=== PATIENT | male | born 1945 | race Caucasian/White ===

== ENCOUNTER 2017-03-25 10:49 | Inpatient (IN) | payer OTHER ==
[2017-03-25] MEDS ORDERED: ASPIRIN 325 MG TABLET PO ONE (11:40)
--- NOTE | 2017-03-25 11:44 | PDOC ---
History of Present Illness <Catalino Triplett - Last Filed: 03/25/17 13:46> - General History Source: Patient, Old Records Exam Limitations: No Limitations - History of Present Illness Initial Comments: 03/25/17 12:20 The patient is a 71 year old male, with a significant past medical history of diabetes and HTN, who presents to the emergency department with right hand weakness and right lower extremity weakness for the past 2 days. He states that the symptoms began evening and then symptoms have not alleviated or worsened. He notes that he is unable to lift his right arm above his head. He also reports numbness on the right upper extremity. He denies any kind of fall or head injury. He states that he takes a daily aspirin but not plavix. He notes that he did not take his aspirin today. He reports that he has chronic lower extremity edema. The patient denies chest pain, shortness of breath, headache and dizziness. Denies fever, chills, nausea, vomit, diarrhea and constipation. Denies dysuria, frequency, urgency and hematuria. Allergies: None Past surgical history: None reported Social history: No alcohol, tobacco or drug use reported PMD - Dr. Virgil Mercedes <Faraz Woodward Padmaja - Last Filed: 03/25/17 15:17> - General Chief Complaint: Pain, Acute Stated Complaint: LT SHOULDER PAIN Time Seen by Provider: 03/25/17 11:16 NIH Stroke Scale - Last Known Well Date/Time & Onset Date Last Known Well: 03/23/17 (evening, exact time unknown) - Initial Evaluation Level of consciousness: Alert Ask patient the month and their age: Answers both correctly Ask patient to open & close eyes; make fist and let go: Obeys both correctly Best gaze (horizontal eye movement): Normal Visual field testing: No visual field loss Facial paresis (Show teeth/raise eyebrows/close eyes tight): Minor paralysis ( flattened nasolabial fold, asymmetry on smiling) Motor Function: Left Arm: Normal Motor Function: Right Arm: Some effort against gravity Motor Function: Left Leg: Normal (extends leg 30 degrees for 5 seconds without drift) Motor Function: Right Leg: Some effort against gravity Limb Ataxia: No ataxia Sensory(Use pinprick test arms,legs,trunk,face/side to side): Normal Best language (Describe picture, name items, read sentences): No Aphasia Dysarthria (read several words): Normal articulation Extinction and Inattention: No abnormality - Total Score NIH Stroke Scale Score: 5 <JaradclaudiaCatalino - Last Filed: 03/25/17 13:46> tPA Exclusion checklist 3-4.5h - Time Elapsed Date last known well: 03/23/17 - Thrombolytic Therapy Candidate Is patient eligible for thrombolytic therapy: No - Ineligibility reason(s) Reasons No tPA given: Outside of window - delayed arrival <Catalino Triplett - Last Filed: 03/25/17 13:46> Past History - Past Medical History Diabetes: Yes HTN: Yes - Immunization History Immunization Up to Date: Yes - Psycho/Social/Smoking Cessation Hx Anxiety: No Suicidal Ideation: No Smoking History: Never smoked Have you smoked in the past 12 months: No Hx Alcohol Use: No Drug/Substance Use Hx: No Substance Use Type: None Hx Substance Use Treatment: No <Catalino Triplett - Last Filed: 03/25/17 13:46> <Faraz Woodward - Last Filed: 03/25/17 15:17> - Past Medical History Allergies/Adverse Reactions: Allergies Allergy/AdvReac Type Severity Reaction Status Date / Time No Known Allergies Allergy Verified 03/25/17 10:50 Home Medications: Ambulatory Orders Lisinopril/Hydrochlorothiazide [Lisinopril-Hctz 10-12.5 mg Tab] 1 each PO DAILY 11/04/16 Amlodipine Besylate [Norvasc -] 10 mg PO DAILY tablet 11/05/16 Aspirin Coated [Ecotrin -] 81 mg PO DAILY tablet.ec 11/05/16 Atorvastatin Ca [Lipitor] 40 mg PO HS tablet 11/05/16 Canagliflozin [Invokana] 100 mg PO DAILY 11/05/16 Hydrochlorothiazide [Hctz -] 12.5 mg PO DAILY cap 11/05/16 Insulin Degludec [Tresiba Flextouch U-100] 0.001 ml SQ DAILY 11/05/16 Linagliptin/Metformin HCl [Jentadueto 2.5 mg-500 mg Tab] 1 each PO BID 11/05/16 Review of Systems - Review of Systems Constitutional: No: Chills, Fever HEENTM: No: Recent change in vision Respiratory: No: Cough, Shortness of Breath Cardiac (ROS): No: Chest Pain ABD/GI: No: Nausea, Vomiting Neurological: Yes: Weakness. No: Headache All Other Systems: Reviewed and Negative <Catalino Triplett - Last Filed: 03/25/17 13:46> *Physical Exam - Vital Signs Last Vital Signs Temp Pulse Resp BP Pulse Ox 98.2 F 74 18 126/58 98 03/25/17 10:50 03/25/17 10:50 03/25/17 10:50 03/25/17 10:50 03/25/17 10:50 <Catalino Triplett - Last Filed: 03/25/17 13:46> - Vital Signs Last Vital Signs Temp Pulse Resp BP Pulse Ox 98.2 F 74 18 126/58 98 03/25/17 10:50 03/25/17 10:50 03/25/17 10:50 03/25/17 10:50 03/25/17 10:50 - Physical Exam Comments: 03/25/17 12:20 GENERAL: The patient is awake, alert, and fully oriented, in no acute distress. HEAD: Normal with no signs of trauma. EYES: Pupils equal, round and reactive to light, extraocular movements intact, sclera anicteric, conjunctiva clear with no pallor. ENT: Ears normal, nares patent, oropharynx clear without exudates. Moist mucous membranes. NECK: Normal range of motion, supple without lymphadenopathy, JVD, or masses. LUNGS: Breath sounds equal, clear to auscultation bilaterally. No wheeze/ crackles. HEART: Regular rate and rhythm, normal S1 and S2 without murmur or rub. ABDOMEN: Soft/nontender/nondistended. BS wnl. No guarding or rebound. No palpable masses. No hepatosplenomegaly. EXTREMITIES: +1+ edema bilaterally interior leg. Normal range of motion. No clubbing or cyanosis. No cords, erythema, or tenderness. NEUROLOGICAL: +Slight flattening of the left nasal fold. Defer to NIH. PSYCH: Normal mood, normal affect. SKIN: Warm, Dry, normal turgor, no rashes or lesions noted. <Faraz Woodward - Last Filed: 03/25/17 15:17> Heart Score/ECG Review #1 ECG reviewed & interpreted by me at: 11:42 General ECG Interpretation: Sinus Rhythm, Normal Rate (66), Normal Intervals ( qtc 406, LVH), No acute ischemic changes <Catalino Triplett - Last Filed: 03/25/17 13:46> ED Treatment Course - LABORATORY CBC & Chemistry Diagram: 03/25/17 11:41 03/25/17 11:41 - RADIOLOGY Radiology Studies Ordered: Category Date Time Status HEAD CT (STROKE) [CT] Stat CT Scan 03/25/17 11:39 Ordered <Catalino Triplett - Last Filed: 03/25/17 13:46> - LABORATORY CBC & Chemistry Diagram: 03/25/17 11:41 03/25/17 11:41 - ADDITIONAL ORDERS Additional order review: 03/25/17 11:41 RBC 5.37 MCV 81.1 MCHC 33.5 RDW 14.2 MPV 8.3 Neutrophils % 65.7 Lymphocytes % 16.4 D Monocytes % 7.9 Eosinophils % 8.0 H Basophils % 2.0 - RADIOLOGY Radiograph Interpretation: 03/25/17 13:[address] Reviewed by: Dr. To Huddleston Impression: No CT evidence of acute intracranial pathology. - Medications Given in the ED: ED Medications Discontinued Medications Generic Name Dose Route Start Last Admin Trade Name Freq PRN Reason Stop Dose Admin Aspirin 325 mg 03/25/17 11:40 03/25/17 11:52 Asa - PO 03/25/17 11:41 325 mg ONCE ONE Administration <Faraz Woodward - Last Filed: 03/25/17 15:17> Medical Decision Making - Medical Decision Making 03/25/17 11:41 A portion of this note was documented by scribe services under my direction. I have reviewed the details of the note, within reason, and agree with the documentation with the following case summary and management plan written by me. 71-year-old male with history of hypertension, high cholesterol, diabetes presents with right arm and leg weakness since evening. Denies any headache or any pain or injury, no chest pain or difficulty breathing, but presents for persistence of symptoms. He takes a daily aspirin, did not take it today. Exam as noted with right arm and leg weakness, NIH score 5 Otherwise alert and well appearing seated in stretcher 71-year-old male who was likely sustained a CVA 2 days ago, now with delayed presentation for persistence of right-sided weakness. Most concerning for ischemic CVA, rule out any bleeding. Stroke protocol initiated, out of window for code azul Neurology consulted, Dr. Garcia Will give aspirin if CT negative Admit to stroke unit 03/25/17 12:13 D/W Dr. Garcia of neurology, will see patient and agrees with Stroke unit admission. On my prelim review of CT, no acute hemorrhage. 03/25/17 12:34 Radiology read confirms no acute abnormality on CT. Labs are within normal limits, slight hyperglycemia of 300 so given insulin subcutaneously. Troponin negative, cholesterol elevated. PMD is Dr. Virgil Mercedes, Dr. Nice covering and called. 03/25/17 13:46 Accepted for inpatient stroke by Dr. Nice. <Catalino Triplett - Last Filed: 03/25/17 13:46> - Medical Decision Making 03/25/17 15:15 Dr. Virgil Mercedes was called regarding the patient at 12:40pm. Dr. Nice covering. Dr. Nice was called regarding the patient at 1:32pm Dr. Nice was consulted regarding the patient at 2:00pm [phone] <Faraz Woodward - Last Filed: 03/25/17 15:17> *DC/Admit/Observation/Transfer - Discharge Dispostion Admit: Yes <Catalino Triplett - Last Filed: 03/25/17 13:46> - Attestations Scribe Attestion: 03/25/17 12:21 Documentation prepared by Faraz Woodward, acting as medical aide for Catalino Triplett MD <Faraz Woodward - Last Filed: 03/25/17 15:17> Diagnosis at time of Disposition: CVA (cerebral vascular accident) Qualifiers: CVA mechanism: unspecified Qualified Code(s): I63.9 - Cerebral infarction, unspecified - Referrals
[2017-03-25] MEDS ORDERED: ASPIRIN 325 MG TABLET ONE (11:50)
[2017-03-25 11:53] LABS: MCH 27.2 pg (25.7-33.7); MCHC 33.5 g/dl (32.0-35.9); MEAN CELL VOLUME 81.1 fl (80-96); MEAN PLT VOLUME 8.3 fl (7.5-11.1); NEUTROPHILS 65.7 % (42.8-82.8); PLATELET COUNT 228 K/MM3 (134-434); RDW 14.2 % (11.9-15.9); WHITE BLOOD COUNT 5.6 K/mm3 (4.0-10.0)
[2017-03-25 12:07] LABS: INR 1.06 (0.82-1.09); PROTHROMBIN TIME (PATIENT) 11.7 SEC (9.98-11.88)
[2017-03-25 12:21] LABS: ALBUMIN 3.9 g/dl (3.4-5.0); ANION GAP 9 (8-16); BILIRUBIN,TOTAL 0.5 mg/dL (0.2-1.0); CALCIUM 9.1 mg/dL (8.5-10.1); CHOLESTEROL 240 mg/dL (50-200); CO2 24 mmol/L (21-32); COCKROFT - GAULT 78.72; LDL CHOLESTEROL (ONLY SJRH) 166 mg/dL (5-100); SGPT/ALT 24 U/L (12-78); TOT PROT 7.3 g/dl (6.4-8.2)
[2017-03-25 12:24] LABS: ALK PHOS 81 U/L (45-117); SGOT/AST 17 U/L (15-37); TROPONIN I < 0.02 ng/ml (0.00-0.05)
[2017-03-25 12:28] LABS: GLUCOSE,RANDOM 307 mg/dL (74-106)
[2017-03-25] MEDS ORDERED: INSULIN REGULAR HUMAN 100 UNITS/ML *VIAL SQ ONE (12:34)
[2017-03-25] MEDS ORDERED: INSULIN REGULAR HUMAN 100 UNITS/ML *VIAL ONE (12:41)
[2017-03-25 15:22] LABS: URINE APPEARANCE CLEAR; URINE BILIRUBIN NEGATIVE (NEGATIVE); URINE BLOOD NEGATIVE (NEGATIVE); URINE COLOR STRAW; URINE GLUCOSE (UA) 3+ (NEGATIVE); URINE KETONE NEGATIVE (NEGATIVE); URINE LEUK ESTERASE NEGATIVE (NEGATIVE); URINE NITRITE NEGATIVE (NEGATIVE); URINE PROTEIN NEGATIVE (NEGATIVE); URINE UROBILINOGEN NEGATIVE E.U./dl (0.2-1.0)
[2017-03-25 16:34] VITALS: BMI 27.8
--- NOTE | 2017-03-25 18:13 | CON.NEURO ---
Consult Consult Specialty:: Neurology Reason for Consultation:: Left arm weakness - History of Present Illness Chief Complaint: "My arm is weak since . History of Present Illness: The patient is a 71 year old gentleman with a significant past medical history of diabetes and HTN, who presents to the emergency department with right hand weakness and right lower extremity weakness for the past 2 days. He states that the symptoms began evening, the right leg weakness has improved but not the arm weakness and then symptoms have not alleviated or worsened. He notes that he is unable to lift his right arm above his head. He also reported numbness on the right upper extremity but denies it noew. He denies any kind of fall or head injury. He states that he takes a daily aspirin but not plavix. He reports 3 days prior to the inception of current event he did not take ANY of his medications.. He reports that he has chronic lower extremity edema. The patient denies chest pain, shortness of breath, headache and dizziness. Denies fever, chills, nausea, vomit, diarrhea and constipation. Denies dysuria, frequency, urgency and hematuria. - History Source History Provided By: Patient Limitations to Obtaining History: No Limitations - Past Medical History Cardio/Vascular: Yes: Aneurysm, HTN, Hyperlipdemia Pulmonary: Yes: COPD Renal/: Yes: BPH, Other (PROSTATE BX) Musculoskeletal: Yes: Chronic low back pain Endocrine: Yes: Diabetes Mellitus - Alcohol/Substance Use Hx Alcohol Use: No History of Substance Use: reports: None - Smoking History Smoking history: Never smoked Have you smoked in the past 12 months: No - Social History ADL: Independent History of Recent Travel: No Home Medications - Allergies Allergies/Adverse Reactions: Allergies Allergy/AdvReac Type Severity Reaction Status Date / Time No Known Allergies Allergy Verified 03/25/17 10:50 - Home Medications Home Medications: Ambulatory Orders Lisinopril/Hydrochlorothiazide [Lisinopril-Hctz 10-12.5 mg Tab] 1 each PO DAILY 11/04/16 Amlodipine Besylate [Norvasc -] 10 mg PO DAILY tablet 11/05/16 Aspirin Coated [Ecotrin -] 81 mg PO DAILY tablet.ec 11/05/16 Atorvastatin Ca [Lipitor] 40 mg PO HS tablet 11/05/16 Canagliflozin [Invokana] 100 mg PO DAILY 11/05/16 Hydrochlorothiazide [Hctz -] 12.5 mg PO DAILY cap 11/05/16 Insulin Degludec [Tresiba Flextouch U-100] 0.001 ml SQ DAILY 11/05/16 Linagliptin/Metformin HCl [Jentadueto 2.5 mg-500 mg Tab] 1 each PO BID 11/05/16 Physical Exam-Neuro Vital Signs: Vital Signs Temperature 97.8 F 03/25/17 16:09 Pulse Rate 58 L 03/25/17 16:30 Respiratory Rate 18 03/25/17 16:30 Blood Pressure 172/94 03/25/17 16:09 O2 Sat by Pulse Oximetry (%) 97 03/25/17 16:09 Labs: INR, PTT INR 1.06 (0.82-1.09) 03/25/17 11:41 - Neuro Exam Dominant Hand: Right Mini Mental Exam: HIF intact Cranial Nerves II-XII Intact: No (slight right central facial) Gag: Present DTR's: 0 Left Achilles, 0 Right Achilles, 1+ Right Bicep, 1+ Right Tricep, 1+ Right Brachioradialis, 2+ Left Bicep, 2+ Left Tricep, 2+ Left Brachioradialis Response to light touch: Abnormal (there) Motor Strength: 3/5: Right Arm (Biceps/triceps/deltoid-4+/5, 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 rotated, DF-4/5) Gait: Other (very slight right hemiparetic gait.) NIH Stroke Scale - Total Score NIH Stroke Scale Score: 0 Imaging - Results Cat Scan: Report Reviewed, Image Reviewed (Ct head without evidence of acute infarct.) Assessment/Plan Pt. with improving left hemiparesis/hemisensory deficit. Likely small lacunar subcortical infarction. Suggest: 1) Cont. ASA 325ng daily 2) MRI brain, Carotid Ultrasound, Echocardiogram(if not recently performed at PMDs office) 3) Pt/Rehab consult. Thank you, Please dont hesitate to call me [phone] Alanna Garcia.
[2017-03-26] MEDS: metFORMIN HCL 500 MG TABLET (FP) PO SCH ×2 (06:07→17:11)
[2017-03-26] MEDS: sitaGLIPtin PHOSPHATE 100 MG TABLET (FP) PO SCH (06:07)
[2017-03-26] MEDS: INSULIN SLIDING SCALE (NOVOLOG) 1 VIAL SQ SCH ×5 (06:09→21:12)
--- NOTE | 2017-03-26 07:56 | CON.CARD ---
Consult Consult Specialty:: Cardiology for Marie Reason for Consultation:: cva - History of Present Illness History of Present Illness: The patient is a 71 year old male, with a significant past medical history of diabetes and HTN, who presents to the emergency department with right hand weakness and right lower extremity weakness for the past 2 days. He states that the symptoms began evening and then symptoms have not alleviated or worsened. He notes that he is unable to lift his right arm above his head. He also reports numbness on the right upper extremity. He denies any kind of fall or head injury. He states that he takes a daily aspirin but not plavix. He notes that he did not take his aspirin today. He reports that he has chronic lower extremity edema. The patient denies chest pain, shortness of breath, headache and dizziness. Denies fever, chills, nausea, vomit, diarrhea and constipation. Denies dysuria, frequency, urgency and hematuria. Allergies: None Past surgical history: None reported Social history: No alcohol, tobacco or drug use reported PMD - Dr. Virgil Mercedes - History Source History Provided By: Patient, Medical Record - Past Medical History Cardio/Vascular: Yes: Aneurysm, HTN, Hyperlipdemia Pulmonary: Yes: COPD Renal/: Yes: BPH, Other (PROSTATE BX) Musculoskeletal: Yes: Chronic low back pain Endocrine: Yes: Diabetes Mellitus - Alcohol/Substance Use Hx Alcohol Use: No History of Substance Use: reports: None - Smoking History Smoking history: Never smoked Have you smoked in the past 12 months: No - Social History ADL: Independent History of Recent Travel: No Home Medications - Allergies Allergies/Adverse Reactions: Allergies Allergy/AdvReac Type Severity Reaction Status Date / Time No Known Allergies Allergy Verified 03/25/17 10:50 - Home Medications Home Medications: Ambulatory Orders Lisinopril/Hydrochlorothiazide [Lisinopril-Hctz 10-12.5 mg Tab] 1 each PO DAILY 11/04/16 Amlodipine Besylate [Norvasc -] 10 mg PO DAILY tablet 11/05/16 Aspirin Coated [Ecotrin -] 81 mg PO DAILY tablet.ec 11/05/16 Atorvastatin Ca [Lipitor] 40 mg PO HS tablet 11/05/16 Canagliflozin [Invokana] 100 mg PO DAILY 11/05/16 Hydrochlorothiazide [Hctz -] 12.5 mg PO DAILY cap 11/05/16 Insulin Degludec [Tresiba Flextouch U-100] 0.001 ml SQ DAILY 11/05/16 Linagliptin/Metformin HCl [Jentadueto 2.5 mg-500 mg Tab] 1 each PO BID 11/05/16 Review of Systems - Review of Systems Constitutional: reports: No Symptoms Eyes: reports: No Symptoms HENT: reports: No Symptoms Neck: reports: No Symptoms Cardiovascular: reports: No Symptoms Gastrointestinal: reports: No Symptoms Genitourinary: reports: No Symptoms Breasts: reports: No Symptoms Reported Musculoskeletal: reports: No Symptoms Integumentary: reports: No Symptoms Neurological: reports: Weakness Endocrine: reports: No Symptoms Hematology/Lymphatic: reports: No Symptoms Psychiatric: reports: No Symptoms Vital Signs: Vital Signs Temperature 98.0 F 03/26/17 05:00 Pulse Rate 54 L 03/26/17 05:00 Respiratory Rate 18 03/26/17 05:00 Blood Pressure 154/94 03/26/17 05:00 O2 Sat by Pulse Oximetry (%) 97 03/25/17 21:00 Constitutional: Yes: Well Nourished, No Distress, Calm Eyes: Yes: WNL, Conjunctiva Clear, EOM Intact HENT: Yes: WNL, Atraumatic, Normocephalic Neck: Yes: WNL, Supple, Trachea Midline Respiratory: Yes: WNL, Regular, CTA Bilaterally Gastrointestinal: Yes: WNL, Normal Bowel Sounds Renal/: Yes: WNL Cardiovascular: Yes: WNL, Regular Rate and Rhythm Musculoskeletal: Yes: WNL Extremities: Yes: WNL Integumentary: Yes: WNL Neurological: Yes: Weakness ...Motor Strength: WNL Psychiatric: Yes: WNL, Alert, Oriented - Other Data Labs, Other Data: INR, PTT INR 1.06 (0.82-1.09) 03/25/17 11:41 Imaging - Results EKG: Image Reviewed (sr lvh) Problem List - Problems (1) CVA (cerebral vascular accident) Code(s): I63.9 - CEREBRAL INFARCTION, UNSPECIFIED Qualifiers: CVA mechanism: unspecified Qualified Code(s): I63.9 - Cerebral infarction, unspecified (2) Back pain Code(s): M54.9 - DORSALGIA, UNSPECIFIED (3) Chest pain Code(s): R07.9 - CHEST PAIN, UNSPECIFIED Qualifiers: Chest pain type: unspecified Qualified Code(s): R07.9 - Chest pain, unspecified (4) Constipation Code(s): K59.00 - CONSTIPATION, UNSPECIFIED Qualifiers: Constipation type: unspecified constipation type Qualified Code(s): K59.00 - Constipation, unspecified (5) Diabetes type 2, controlled Code(s): E11.9 - TYPE 2 DIABETES MELLITUS WITHOUT COMPLICATIONS (6) Fever and chills Code(s): R50.9 - FEVER, UNSPECIFIED (7) HLD (hyperlipidemia) Code(s): E78.5 - HYPERLIPIDEMIA, UNSPECIFIED (8) Hypertension Code(s): I10 - ESSENTIAL (PRIMARY) HYPERTENSION (9) UTI (urinary tract infection) Code(s): N39.0 - URINARY TRACT INFECTION, SITE NOT SPECIFIED Qualifiers: Urinary tract infection type: acute cystitis Hematuria presence: without hematuria Qualified Code(s): N30.00 - Acute cystitis without hematuria Assessment/Plan small lacunar subcortical infarct mri pending htn copd hld dm plan echo carotids lipid profile asa as per neuro bp control coverage for Angeline
[2017-03-26] MEDS: HYDROCHLOROTHIAZIDE 12.5 MG CAPSULE (FP) PO SCH (09:20)
[2017-03-26] MEDS: ASPIRIN COATED 81 MG TABLET.EC PO SCH (09:20)
[2017-03-26] MEDS ORDERED: PATIENT'S OWN MEDICATION (NON-FORMULARY) (Canagliflozin [Invokana] 100 MG) PO SCH (10:00)
[2017-03-26] MEDS ORDERED: PATIENT'S OWN MEDICATION (NON-FORMULARY) (Linagliptin/Metformin Hcl [Jentadueto 2.5 Mg-500 PO SCH (10:00)
[2017-03-26] MEDS ORDERED: INSULIN DEGLUDEC SQ SCH (10:00)
[2017-03-26 12:31] LABS: ALBUMIN 3.7 g/dl (3.4-5.0); ANION GAP 8 (8-16); BILIRUBIN,TOTAL 0.4 mg/dL (0.2-1.0); CALCIUM 8.9 mg/dL (8.5-10.1); CO2 27 mmol/L (21-32); COCKROFT - GAULT 99.52; CREATININE 0.8 mg/dL (0.7-1.3); GLUCOSE,RANDOM 199 mg/dL (74-106); SGOT/AST 12 U/L (15-37); SGPT/ALT 22 U/L (12-78)
[2017-03-26 12:32] LABS: ALK PHOS 80 U/L (45-117)
[2017-03-26 12:41] LABS: BASOPHIL 1.3 % (0-2.0); EOSINOPHIL 7.8 % (0-4.5); MCH 26.9 pg (25.7-33.7); MCHC 33.3 g/dl (32.0-35.9); MEAN CELL VOLUME 80.7 fl (80-96); MEAN PLT VOLUME 8.6 fl (7.5-11.1); NEUTROPHILS 69.1 % (42.8-82.8); PLATELET COUNT 213 K/MM3 (134-434); RDW 14.3 % (11.9-15.9); WHITE BLOOD COUNT 5.6 K/mm3 (4.0-10.0)
--- NOTE | 2017-03-26 15:59 | CONSULT ---
Consult - History of Present Illness History of Present Illness: 71 yo right handed man with PMH DM, HTN admitted with weakness right arm and leg for 2 days. He has no prior history of stroke or TIA. His leg has improved but the hand remains weak. - History Source History Provided By: Patient, Medical Record Limitations to Obtaining History: No Limitations - Past Medical History Cardio/Vascular: Yes: Aneurysm, HTN, Hyperlipdemia Pulmonary: Yes: COPD Renal/: Yes: BPH, Other (PROSTATE BX) Musculoskeletal: Yes: Chronic low back pain Endocrine: Yes: Diabetes Mellitus - Alcohol/Substance Use Hx Alcohol Use: No History of Substance Use: reports: None - Smoking History Smoking history: Former smoker (Stopped 1979) Have you smoked in the past 12 months: No - Social History ADL: Independent History of Recent Travel: No Home Medications - Allergies Allergies/Adverse Reactions: Allergies Allergy/AdvReac Type Severity Reaction Status Date / Time No Known Allergies Allergy Verified 03/25/17 10:50 - Home Medications Home Medications: Ambulatory Orders Lisinopril/Hydrochlorothiazide [Lisinopril-Hctz 10-12.5 mg Tab] 1 each PO DAILY 11/04/16 Amlodipine Besylate [Norvasc -] 10 mg PO DAILY tablet 11/05/16 Aspirin Coated [Ecotrin -] 81 mg PO DAILY tablet.ec 11/05/16 Atorvastatin Ca [Lipitor] 40 mg PO HS tablet 11/05/16 Canagliflozin [Invokana] 100 mg PO DAILY 11/05/16 Hydrochlorothiazide [Hctz -] 12.5 mg PO DAILY cap 11/05/16 Insulin Degludec [Tresiba Flextouch U-100] 0.001 ml SQ DAILY 11/05/16 Linagliptin/Metformin HCl [Jentadueto 2.5 mg-500 mg Tab] 1 each PO BID 11/05/16 Physical Exam Vital Signs: Vital Signs Temperature 98.3 F 03/26/17 14:40 Pulse Rate 56 L 03/26/17 14:40 Respiratory Rate 14 03/26/17 14:40 Blood Pressure 149/71 03/26/17 14:40 O2 Sat by Pulse Oximetry (%) 97 03/26/17 10:00 Constitutional: Yes: No Distress Eyes: Yes: Conjunctiva Clear, EOM Intact HENT: Yes: Atraumatic Neck: Yes: Supple Cardiovascular: Yes: Regular Rate and Rhythm Respiratory: Yes: Regular Gastrointestinal: Yes: Soft Neurological: Yes: Weakness (Right hand) Labs: CBC, BMP 03/26/17 11:50 03/26/17 11:50 Imaging - Results Ultrasound: Image Reviewed (Left ICA stenosis 60-79%) Problem List - Problems (1) CVA (cerebral vascular accident) Code(s): I63.9 - CEREBRAL INFARCTION, UNSPECIFIED Qualifiers: CVA mechanism: unspecified Qualified Code(s): I63.9 - Cerebral infarction, unspecified (2) Carotid stenosis with cerebral infarction less than 8 weeks ago Assessment/Plan: Duplex suggested significant stenosis of left ICA with corresponding infarct on MRI and symptoms of stroke affecting right arm and leg. Symptoms are improving. CTA of neck ordered to better assess degree of stenosis. If severe stenosis, >70 % confirmed, carotid revascularization will be indicated. Continue aspirin and plavix. Code(s): I69.30 - UNSPECIFIED SEQUELAE OF CEREBRAL INFARCTION
[2017-03-26] MEDS ORDERED: INSULIN (NOVOLOG) ASPART 100 UNITS/ML 10ML VIAL ONE ×2 (17:02→20:49)
[2017-03-26] MEDS: CLOPIDOGREL BISULFATE 75 MG TABLET (FP) PO SCH (17:11)
--- NOTE | 2017-03-26 18:41 | HP ---
Admitting History and Physical - Admission Chief Complaint: Hemiparesis History of Present Illness: Pt is a 71 y/o male w/ PMH significant for HTN, HLD, COPD, diabetes, BOH and chronic back pain. About 2-3 days ago pt developed RUE and RLE weakness. Pt now came to the ER bc weakness did not improve. 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 In the ER pt had ct scan head wc was unremarkable. Pt denied any GUERRERO, no chest pain/palpitations or SOB. - Past Medical History Cardiovascular: Yes: Aneurysm, HTN, Hyperlipdemia Pulmonary: Yes: COPD Renal/: Yes: BPH, Other (PROSTATE BX) Musculoskeletal: Yes: Chronic low back pain Endocrine: Yes: Diabetes Mellitus - Smoking History Smoking history: Former smoker (Stopped 1979) Have you smoked in the past 12 months: No - Alcohol/Substance Use Hx Alcohol Use: No History of Substance Use: reports: None - Social History ADL: Independent History of Recent Travel: No Home Medications - Allergies Allergies/Adverse Reactions: Allergies Allergy/AdvReac Type Severity Reaction Status Date / Time No Known Allergies Allergy Verified 03/25/17 10:50 - Home Medications Home Medications: Ambulatory Orders Lisinopril/Hydrochlorothiazide [Lisinopril-Hctz 10-12.5 mg Tab] 1 each PO DAILY 11/04/16 Amlodipine Besylate [Norvasc -] 10 mg PO DAILY tablet 11/05/16 Aspirin Coated [Ecotrin -] 81 mg PO DAILY tablet.ec 11/05/16 Atorvastatin Ca [Lipitor] 40 mg PO HS tablet 11/05/16 Canagliflozin [Invokana] 100 mg PO DAILY 11/05/16 Hydrochlorothiazide [Hctz -] 12.5 mg PO DAILY cap 11/05/16 Insulin Degludec [Tresiba Flextouch U-100] 0.001 ml SQ DAILY 11/05/16 Linagliptin/Metformin HCl [Jentadueto 2.5 mg-500 mg Tab] 1 each PO BID 11/05/16 Family Disease History - Family Disease History Family History: Unremarkable Review of Systems - Review of Systems Constitutional: reports: No Symptoms Eyes: reports: No Symptoms HENT: reports: No Symptoms Neck: reports: No Symptoms Cardiovascular: reports: No Symptoms Respiratory: reports: No Symptoms Gastrointestinal: reports: No Symptoms Musculoskeletal: reports: Muscle Weakness Neurological: reports: Parasthesia, Weakness Physical Examination Vital Signs: Vital Signs Temperature 98.3 F 03/26/17 14:40 Pulse Rate 56 L 03/26/17 14:40 Respiratory Rate 14 03/26/17 14:40 Blood Pressure 149/71 03/26/17 14:40 O2 Sat by Pulse Oximetry (%) 97 03/26/17 10:00 Constitutional: Yes: Well Nourished Eyes: Yes: WNL HENT: Yes: WNL Neck: Yes: Supple Cardiovascular: Yes: WNL, Regular Rate and Rhythm Respiratory: Yes: WNL, Regular, CTA Bilaterally Gastrointestinal: Yes: WNL, Normal Bowel Sounds, Soft Musculoskeletal: Yes: Muscle Weakness Extremities: Yes: WNL Edema: No Labs: CBC, BMP 03/26/17 11:50 03/26/17 11:50 Problem List - Problems (1) CVA (cerebral vascular accident) Assessment/Plan: Admitted to [facility] Carotid doppler showed 70 % stenosis LICA MRI brain showed multiple small acute nonhemorrhagic infarcts in lt frontal/ parietal lobes and old ischemic changes Antihypertensive meds were held to allow SBP to be more permissive around SPB 150's during acute stroke Cont ASA/lipitor PT eval in am Neuro/cardio/vascular consults Check echo/CTA Code(s): I63.9 - CEREBRAL INFARCTION, UNSPECIFIED Qualifiers: CVA mechanism: unspecified Qualified Code(s): I63.9 - Cerebral infarction, unspecified (2) Carotid stenosis with cerebral infarction less than 8 weeks ago Assessment/Plan: As per vascular CTA to be done Code(s): I69.30 - UNSPECIFIED SEQUELAE OF CEREBRAL INFARCTION (3) Hypertension Assessment/Plan: SBP around 140'2-150 Cont HCTZ Will restart antihypertensives once BP more permissive Cardio consult Check echo Code(s): I10 - ESSENTIAL (PRIMARY) HYPERTENSION (4) Diabetes type 2, controlled Assessment/Plan: Cont sliding scale/invokana/januvia/metformin Check HgA1c Code(s): E11.9 - TYPE 2 DIABETES MELLITUS WITHOUT COMPLICATIONS (5) HLD (hyperlipidemia) Assessment/Plan: Cont lipitor Code(s): E78.5 - HYPERLIPIDEMIA, UNSPECIFIED (6) BPH (benign prostatic hyperplasia) Assessment/Plan: Cont flomax Code(s): N40.0 - BENIGN PROSTATIC HYPERPLASIA WITHOUT LOWER URINRY TRACT SYMP (7) COPD (chronic obstructive pulmonary disease) Code(s): J44.9 - CHRONIC OBSTRUCTIVE PULMONARY DISEASE, UNSPECIFIED
[2017-03-26] MEDS ORDERED: ACETAMINOPHEN 325 MG TABLET (FP) PO PRN (19:41)
[2017-03-26] MEDS: ATORVASTATIN CA 40 MG TABLET (FP) PO SCH (21:13)
[2017-03-26] MEDS: HEPARIN NA (PORCINE) 5,000 UNITS/ML 1ML VIAL SQ SCH (21:13)
--- NOTE | 2017-03-27 00:09 | EKG ---
Test Reason : Blood Pressure : / mmHG Vent. Rate : 066 BPM Atrial Rate : 066 BPM P-R Int : 182 ms QRS Dur : 080 ms QT Int : 388 ms P-R-T Axes : 043 -27 022 degrees QTc Int : 406 ms NORMAL SINUS RHYTHM MINIMAL VOLTAGE CRITERIA FOR LVH, MAY BE NORMAL VARIANT BORDERLINE ECG WHEN COMPARED WITH ECG OF 04-NOV-2016 13:08, NONSPECIFIC T WAVE ABNORMALITY HAS REPLACED INVERTED T WAVES IN INFERIOR LEADS Confirmed by JOSE VEGA, STEPHANIE ([id number]) on 03/27/2017 12:09:33 AM Referred By: Confirmed By:STEPHANIE GARCIA MD
[2017-03-27] MEDS: metFORMIN HCL 500 MG TABLET (FP) PO SCH ×2 (06:01→16:53)
[2017-03-27] MEDS: sitaGLIPtin PHOSPHATE 100 MG TABLET (FP) PO SCH (06:02)
[2017-03-27] MEDS: INSULIN SLIDING SCALE (NOVOLOG) 1 VIAL SQ SCH ×4 (06:02→21:35)
--- NOTE | 2017-03-27 08:08 | PN ---
Progress Note (short form) - Note Progress Note: HPI 03/26/17 : 71 year old gentleman with a significant past medical history of diabetes and HTN, who presents to the emergency department with right hand weakness and right lower extremity weakness for the past 2 days. He states that the symptoms began evening, the right leg weakness has improved but not the arm weakness and then symptoms have not alleviated or worsened. He notes that he is unable to lift his right arm above his head. He also reported numbness on the right upper extremity but denies it noew. He denies any kind of fall or head injury. He states that he takes a daily aspirin but not plavix. He reports 3 days prior to the inception of current event he did not take ANY of his medications.. He reports that he has chronic lower extremity edema. The patient denies chest pain, shortness of breath, headache and dizziness. Denies fever, chills, nausea, vomit, diarrhea and constipation. Denies dysuria, frequency, urgency and hematuria. FU : continues to have weakness of the Right arm and face; slight dysarthria. MRI reviewed +infarct left frontal/parietal area, DOPPLER + stenosis 70 L carotid Home Medications - Allergies Allergies/Adverse Reactions: Allergies Allergy/AdvReac Type Severity Reaction Status Date / Time No Known Allergies Allergy Verified 03/25/17 10:50 - Home Medications Home Medications: Ambulatory Orders Lisinopril/Hydrochlorothiazide [Lisinopril-Hctz 10-12.5 mg Tab] 1 each PO DAILY 11/04/16 Amlodipine Besylate [Norvasc -] 10 mg PO DAILY tablet 11/05/16 Aspirin Coated [Ecotrin -] 81 mg PO DAILY tablet.ec 11/05/16 Atorvastatin Ca [Lipitor] 40 mg PO HS tablet 11/05/16 Canagliflozin [Invokana] 100 mg PO DAILY 11/05/16 Hydrochlorothiazide [Hctz -] 12.5 mg PO DAILY cap 11/05/16 Insulin Degludec [Tresiba Flextouch U-100] 0.001 ml SQ DAILY 11/05/16 Linagliptin/Metformin HCl [Jentadueto 2.5 mg-500 mg Tab] 1 each PO BID 11/05/16 Physical Exam-Neuro Vital Signs: Vital Signs Labs: INR, PTT INR 1.06 (0.82-1.09) 03/25/17 11:41
--- NOTE | 2017-03-27 08:17 | PN ---
Progress Note (short form) - Note Progress Note: 71 year old gentleman with a significant past medical history of diabetes and HTN, who presents to the emergency department with right hand weakness and right lower extremity weakness for the past 2 days. He states that the symptoms began evening, the right leg weakness has improved but not the arm weakness and then symptoms have not alleviated or worsened. He notes that he is unable to lift his right arm above his head. He also reported numbness on the right upper extremity but denies it noew. He denies any kind of fall or head injury. He states that he takes a daily aspirin but not plavix. He reports 3 days prior to the inception of current event he did not take ANY of his medications.. He reports that he has chronic lower extremity edema. The patient denies chest pain, shortness of breath, headache and dizziness. Denies fever, chills, nausea, vomit, diarrhea and constipation. Denies dysuria, frequency, urgency and hematuria. FU: this AM right sided weakness arm and face with dysarthria--stable MRI BRAIN left frontal and parietal infarct acute Dopplers : left carotid stenosis 70% - History Source History Provided By: Patient Limitations to Obtaining History: No Limitations - Past Medical History Cardio/Vascular: Yes: Aneurysm, HTN, Hyperlipdemia Pulmonary: Yes: COPD Renal/: Yes: BPH, Other (PROSTATE BX) Musculoskeletal: Yes: Chronic low back pain Endocrine: Yes: Diabetes Mellitus Home Medications - Allergies Allergies/Adverse Reactions: Allergies Allergy/AdvReac Type Severity Reaction Status Date / Time No Known Allergies Allergy Verified 03/25/17 10:50 - Home Medications Home Medications: Ambulatory Orders Lisinopril/Hydrochlorothiazide [Lisinopril-Hctz 10-12.5 mg Tab] 1 each PO DAILY 11/04/16 Amlodipine Besylate [Norvasc -] 10 mg PO DAILY tablet 11/05/16 Aspirin Coated [Ecotrin -] 81 mg PO DAILY tablet.ec 11/05/16 Atorvastatin Ca [Lipitor] 40 mg PO HS tablet 11/05/16 Canagliflozin [Invokana] 100 mg PO DAILY 11/05/16 Hydrochlorothiazide [Hctz -] 12.5 mg PO DAILY cap 11/05/16 Insulin Degludec [Tresiba Flextouch U-100] 0.001 ml SQ DAILY 11/05/16 Linagliptin/Metformin HCl [Jentadueto 2.5 mg-500 mg Tab] 1 each PO BID 11/05/16 Physical Exam-Neuro Vital Signs: Vital Signs - 24 hr 03/26/17 03/26/17 03/26/17 10:00 14:40 18:00 Temperature 97.9 F 98.3 F 98.2 F Pulse Rate 62 56 L 54 L Respiratory 18 14 18 Rate Blood Pressure 138/94 149/71 132/82 O2 Sat by Pulse 97 Oximetry (%) 03/26/17 03/26/17 03/27/17 21:00 21:54 01:42 Temperature 98.1 F 97 F L Pulse Rate 62 52 L Respiratory 18 18 18 Rate Blood Pressure 143/86 130/75 O2 Sat by Pulse 96 Oximetry (%) 03/27/17 07:35 Temperature 97.5 F L Pulse Rate 54 L Respiratory 20 Rate Blood Pressure 146/87 O2 Sat by Pulse Oximetry (%) CBC, BMP 03/26/17 11:50 03/26/17 11:50 - Neuro Exam Dominant Hand: Right Mini Mental Exam: HIF intact Cranial Nerves II-XII Intact: No (slight right central facial) Gag: Present DTR's: 0 Left Achilles, 0 Right Achilles, 1+ Right Bicep, 1+ Right Tricep, 1+ Right Brachioradialis, 2+ Left Bicep, 2+ Left Tricep, 2+ Left Brachioradialis Response to light touch: Abnormal (there) Motor Strength: 3/5: Right Arm (Biceps/triceps/deltoid-4+/5, hand concert manager 4/5), 5/5 : Left Arm, Right Leg (5/5 throughout but ankle ext. rotated, DF-4/5) Gait: Other (very slight right hemiparetic gait.) NIH Stroke Scale - Total Score NIH Stroke Scale Score: Imaging - Results Cat Scan: Report Reviewed, Image Reviewed (Ct head without evidence of acute infarct.) Assessment/Plan Pt. with mild right hemiparesis face/arm 4/5 weakness, + left sided frontal/parietal stroke on MRI, + symptomatic carotid L stenosis on doppler suspect will need CEA, can get CTA as per vascular consider intervention between 2-3 weeks, do not need heparin at this stage, neurologically stable ASA/plavix though may have to DC plavix if getting surgery in coming week(s) / statin REhab Dr Cooper [phone]
[2017-03-27] MEDS: TAMSULOSIN HCL 0.4 MG CAP.ER.24H (FP) PO SCH (09:06)
[2017-03-27] MEDS: HEPARIN NA (PORCINE) 5,000 UNITS/ML 1ML VIAL SQ SCH ×2 (09:06→21:35)
[2017-03-27] MEDS: ASPIRIN COATED 81 MG TABLET.EC PO SCH (09:06)
[2017-03-27] MEDS: CLOPIDOGREL BISULFATE 75 MG TABLET (FP) PO SCH (09:06)
[2017-03-27] MEDS: HYDROCHLOROTHIAZIDE 12.5 MG CAPSULE (FP) PO SCH (09:06)
--- NOTE | 2017-03-27 12:02 | PN ---
Progress Note, Physician History of Present Illness: seen and examined today in nad. no overnight events. no new complaints. still has R sided weakness. - Current Medication List Current Medications: Active Medications Acetaminophen (Tylenol -) 650 mg PO Q6H PRN PRN Reason: FEVER OR PAIN Aspirin (Ecotrin -) 81 mg PO DAILY ON LICENSE OF [facility] Last Admin: 03/27/17 09:06 Dose: 81 mg Atorvastatin Calcium (Lipitor -) 40 mg PO HS ON LICENSE OF [facility] Last Admin: 03/26/17 21:13 Dose: 40 mg Clopidogrel Bisulfate (Plavix -) 75 mg PO DAILY ON LICENSE OF [facility] Last Admin: 03/27/17 09:06 Dose: 75 mg Heparin Sodium (Porcine) (Heparin -) 5,000 unit SQ BID ON LICENSE OF [facility] Last Admin: 03/27/17 09:06 Dose: 5,000 unit Hydrochlorothiazide (Hctz -) 12.5 mg PO DAILY ON LICENSE OF [facility] Last Admin: 03/27/17 09:06 Dose: 12.5 mg Insulin Aspart (Novolog Vial Sliding Scale -) 1 vial SQ ACHS ON LICENSE OF [facility] PRN Reason: Protocol Last Admin: 03/27/17 06:02 Dose: Not Given Metformin HCl (Glucophage -) 500 mg PO BIDI ON LICENSE OF [facility] Last Admin: 03/27/17 06:01 Dose: 500 mg Non-Formulary Medication (Canagliflozin [Invokana]) 100 mg PO DAILY ON LICENSE OF [facility] Non-Formulary Medication (Insulin Degludec [Tresiba Flextouch U-100]) 0.001 ml SQ DAILY ON LICENSE OF [facility] Sitagliptin Phosphate (Januvia -) 100 mg PO DAILY@0700 ON LICENSE OF [facility] Last Admin: 03/27/17 06:02 Dose: 100 mg Tamsulosin HCl (Flomax -) 0.4 mg PO DAILY@0830 ON LICENSE OF [facility] Last Admin: 03/27/17 09:06 Dose: 0.4 mg - Objective Vital Signs: Vital Signs Temperature 98.2 F 03/27/17 10:00 Pulse Rate 60 03/27/17 10:00 Respiratory Rate 20 03/27/17 10:00 Blood Pressure 167/84 03/27/17 10:00 O2 Sat by Pulse Oximetry (%) 98 03/27/17 09:00 Constitutional: Yes: Well Nourished, No Distress, Calm Eyes: Yes: WNL, Conjunctiva Clear, EOM Intact, PERRL HENT: Yes: WNL, Atraumatic, Normocephalic Neck: Yes: WNL, Supple, Trachea Midline Cardiovascular: Yes: Regular Rate and Rhythm, S1, S2. No: Bradycardia, Tachycardia, Pulse Irregular, Bruit, JVD, Gallop, Murmur, Rub, S3, S4, Varicosities Respiratory: Yes: Regular, CTA Bilaterally. No: Rales, Rhonchi, Wheezes Gastrointestinal: Yes: WNL, Normal Bowel Sounds, Soft. No: Distention, Tenderness Extremities: Yes: WNL Edema: No Peripheral Pulses WNL: Yes Peripheral Pulses: Left Doralis Pedis: 2+, Right Dorsalis Pedis: 2+ Integumentary: Yes: WNL Neurological: Yes: Alert, Oriented, Weakness ...Motor Strength: WNL Psychiatric: Yes: WNL, Alert, Oriented Labs: CBC, BMP 03/26/17 11:50 03/26/17 11:50 INR, PTT INR 1.06 (0.82-1.09) 03/25/17 11:41 - ....Imaging Chest X-ray: Report Reviewed, Image Reviewed EKG: Report Reviewed, Image Reviewed Other: Report Reviewed, Image Reviewed (tele-nsr, SB, APCs, PVCs) Assessment/Plan 71 year old man with a history of HTN, DMII, HLD, carotid artery disease, admitted with R sided weakness found to have L sided CVAs, LICA stenosis. CVA-possible significant LICA stenosis -f/up CTA done today to further evaluate, may need CEA -no sig arrhythmias seen on tele, no afib/aflutter -neuro evaluation appreciated -f/up echo from today -to cont asa and plavix for now -cont statin HTN-above goal at times, overall adequately controlled -cont HCTZ for now HLD -cont statin
--- NOTE | 2017-03-27 21:10 | PN ---
Progress Note, Physician History of Present Illness: No new change - Current Medication List Current Medications: Active Medications Acetaminophen (Tylenol -) 650 mg PO Q6H PRN PRN Reason: FEVER OR PAIN Aspirin (Ecotrin -) 81 mg PO DAILY [facility] Last Admin: 03/27/17 09:06 Dose: 81 mg Atorvastatin Calcium (Lipitor -) 40 mg PO HS [facility] Last Admin: 03/26/17 21:13 Dose: 40 mg Clopidogrel Bisulfate (Plavix -) 75 mg PO DAILY [facility] Last Admin: 03/27/17 09:06 Dose: 75 mg Heparin Sodium (Porcine) (Heparin -) 5,000 unit SQ BID [facility] Last Admin: 03/27/17 09:06 Dose: 5,000 unit Hydrochlorothiazide (Hctz -) 12.5 mg PO DAILY [facility] Last Admin: 03/27/17 09:06 Dose: 12.5 mg Insulin Aspart (Novolog Vial Sliding Scale -) 1 vial SQ ACHS [facility] PRN Reason: Protocol Last Admin: 03/27/17 16:52 Dose: 2 units Metformin HCl (Glucophage -) 500 mg PO BIDI [facility] Last Admin: 03/27/17 16:53 Dose: 500 mg Non-Formulary Medication (Canagliflozin [Invokana]) 100 mg PO DAILY [facility] Non-Formulary Medication (Insulin Degludec [Tresiba Flextouch U-100]) 0.001 ml SQ DAILY [facility] Sitagliptin Phosphate (Januvia -) 100 mg PO DAILY@0700 [facility] Last Admin: 03/27/17 06:02 Dose: 100 mg Tamsulosin HCl (Flomax -) 0.4 mg PO DAILY@0830 [facility] Last Admin: 03/27/17 09:06 Dose: 0.4 mg - Objective Vital Signs: Vital Signs Temperature 98.8 F 03/27/17 14:00 Pulse Rate 72 03/27/17 14:00 Respiratory Rate 20 03/27/17 14:00 Blood Pressure 128/88 03/27/17 14:00 O2 Sat by Pulse Oximetry (%) 98 03/27/17 09:00 Constitutional: Yes: Well Nourished Neck: Yes: Supple Cardiovascular: Yes: WNL, Regular Rate and Rhythm Respiratory: Yes: WNL, Regular, CTA Bilaterally Gastrointestinal: Yes: WNL, Normal Bowel Sounds, Soft Labs: CBC, BMP 03/26/17 11:50 03/26/17 11:50 INR, PTT INR 1.06 (0.82-1.09) 03/25/17 11:41 Problem List - Problems (1) CVA (cerebral vascular accident) Assessment/Plan: No arrhythmias while on tele Carotid doppler showed 70 % stenosis LICA CTA showed 70 % stenosis LICA Vascular f/u as outpt for possible surgical intervention MRI brain showed multiple small acute nonhemorrhagic infarcts in lt frontal/ parietal lobes and old ischemic changes Cont to monitor BP Cont ASA/lipitor DC planning in am to STR Code(s): I63.9 - CEREBRAL INFARCTION, UNSPECIFIED Qualifiers: CVA mechanism: unspecified Qualified Code(s): I63.9 - Cerebral infarction, unspecified (2) Carotid stenosis with cerebral infarction less than 8 weeks ago Assessment/Plan: CTA showed 70% stenosis in LICA and some stenosis in DOLLY also As per vascular f/u as outpt Code(s): I69.30 - UNSPECIFIED SEQUELAE OF CEREBRAL INFARCTION (3) Hypertension Assessment/Plan: Cont HCTZ Echo pending As per cardio Code(s): I10 - ESSENTIAL (PRIMARY) HYPERTENSION (4) Diabetes type 2, controlled Assessment/Plan: Cont sliding scale/invokana/januvia/metformin Check HgA1c Code(s): E11.9 - TYPE 2 DIABETES MELLITUS WITHOUT COMPLICATIONS (5) HLD (hyperlipidemia) Assessment/Plan: Cont lipitor Code(s): E78.5 - HYPERLIPIDEMIA, UNSPECIFIED (6) BPH (benign prostatic hyperplasia) Assessment/Plan: Cont flomax Code(s): N40.0 - BENIGN PROSTATIC HYPERPLASIA WITHOUT LOWER URINRY TRACT SYMP (7) COPD (chronic obstructive pulmonary disease) Code(s): J44.9 - CHRONIC OBSTRUCTIVE PULMONARY DISEASE, UNSPECIFIED
[2017-03-27] MEDS ORDERED: INSULIN (NOVOLOG) ASPART 100 UNITS/ML 10ML VIAL ONE (21:28)
[2017-03-27] MEDS: ATORVASTATIN CA 40 MG TABLET (FP) PO SCH (21:36)
[2017-03-28] MEDS: sitaGLIPtin PHOSPHATE 100 MG TABLET (FP) PO SCH (06:13)
[2017-03-28] MEDS: metFORMIN HCL 500 MG TABLET (FP) PO SCH ×2 (06:13→18:01)
[2017-03-28] MEDS: INSULIN SLIDING SCALE (NOVOLOG) 1 VIAL SQ SCH ×4 (06:16→21:13)
[2017-03-28] MEDS: HYDROCHLOROTHIAZIDE 12.5 MG CAPSULE (FP) PO SCH (09:05)
[2017-03-28] MEDS: TAMSULOSIN HCL 0.4 MG CAP.ER.24H (FP) PO SCH (09:05)
[2017-03-28] MEDS: ASPIRIN COATED 81 MG TABLET.EC PO SCH (09:05)
[2017-03-28] MEDS: CLOPIDOGREL BISULFATE 75 MG TABLET (FP) PO SCH (09:05)
[2017-03-28] MEDS: HEPARIN NA (PORCINE) 5,000 UNITS/ML 1ML VIAL SQ SCH ×2 (09:05→21:12)
--- NOTE | 2017-03-28 09:05 | PN ---
Progress Note (short form) - Note Progress Note: No new events reported. Exam unchanged - right arm weakness. CTA confirms severe stenosis at origin of left ICA > 70%. Right carotid endarterectomy recommended to lower risk of future ischemic events. Cardiac clearance for surgery needed. OR can be scheduled once patient reaches a stable neurologic state. I will see in my office to schedule. Continue aspirin with either clopidrogel or persantine to lower risk of new infarcts. Problem List - Problems (1) CVA (cerebral vascular accident) Code(s): I63.9 - CEREBRAL INFARCTION, UNSPECIFIED Qualifiers: CVA mechanism: unspecified Qualified Code(s): I63.9 - Cerebral infarction, unspecified (2) Carotid stenosis with cerebral infarction less than 8 weeks ago Code(s): I69.30 - UNSPECIFIED SEQUELAE OF CEREBRAL INFARCTION
--- NOTE | 2017-03-28 09:43 | PN ---
Progress Note, Physician Chief Complaint: sitting up, alert No acute distress - Current Medication List Current Medications: Active Medications Acetaminophen (Tylenol -) 650 mg PO Q6H PRN PRN Reason: FEVER OR PAIN Last Admin: 03/28/17 05:33 Dose: 650 mg Aspirin (Ecotrin -) 81 mg PO DAILY [facility] Last Admin: 03/28/17 09:05 Dose: 81 mg Atorvastatin Calcium (Lipitor -) 40 mg PO HS [facility] Last Admin: 03/27/17 21:36 Dose: 40 mg Clopidogrel Bisulfate (Plavix -) 75 mg PO DAILY [facility] Last Admin: 03/28/17 09:05 Dose: 75 mg Heparin Sodium (Porcine) (Heparin -) 5,000 unit SQ BID [facility] Last Admin: 03/28/17 09:05 Dose: 5,000 unit Hydrochlorothiazide (Hctz -) 12.5 mg PO DAILY [facility] Last Admin: 03/28/17 09:05 Dose: 12.5 mg Insulin Aspart (Novolog Vial Sliding Scale -) 1 vial SQ ACHS [facility] PRN Reason: Protocol Last Admin: 03/28/17 06:16 Dose: Not Given Metformin HCl (Glucophage -) 500 mg PO BIDI [facility] Last Admin: 03/28/17 06:13 Dose: 500 mg Non-Formulary Medication (Canagliflozin [Invokana]) 100 mg PO DAILY [facility] Non-Formulary Medication (Insulin Degludec [Tresiba Flextouch U-100]) 0.001 ml SQ DAILY [facility] Sitagliptin Phosphate (Januvia -) 100 mg PO DAILY@0700 [facility] Last Admin: 03/28/17 06:13 Dose: 100 mg Tamsulosin HCl (Flomax -) 0.4 mg PO DAILY@0830 [facility] Last Admin: 03/28/17 09:05 Dose: 0.4 mg - Objective Vital Signs: Vital Signs Temperature 98.0 F 03/28/17 09:07 Pulse Rate 63 03/28/17 09:07 Respiratory Rate 20 03/28/17 09:07 Blood Pressure 154/80 03/28/17 09:07 O2 Sat by Pulse Oximetry (%) 97 03/27/17 21:00 Constitutional: Yes: No Distress Eyes: Yes: Conjunctiva Clear Cardiovascular: Yes: Regular Rate and Rhythm Respiratory: Yes: CTA Bilaterally Gastrointestinal: Yes: Soft Edema: No Neurological: Yes: Alert, Oriented Labs: CBC, BMP 03/26/17 11:50 03/26/17 11:50 INR, PTT INR 1.06 (0.82-1.09) 03/25/17 11:41 Laboratory Tests 03/26/17 03/26/17 11:50 11:50 WBC 5.6 Hgb 14.9 Plt Count 213 Potassium 4.3 Creatinine 0.8 Assessment/Plan Assessment/Plan 71 year old man with a history of HTN, DMII, HLD, carotid artery disease, admitted with R sided weakness found to have L sided CVAs, LICA stenosis. CVA-possible significant LICA stenosis -CTA 70% LICA stenosis, vascular input noted. -no sig arrhythmias seen on tele, no afib/aflutter -neuro evaluation appreciated -echo shows nl LV fxn, diastolic dysfunction. -to cont asa and plavix for now -cont statin HTN-above goal at times, overall adequately controlled -cont HCTZ for now HLD -cont statin Preop evaluation for interval LCEA: -Patient can follow up in office and we can provide periop evaluation closer to time of planned surgery. Will be done after adequate period for neuro recovery, usually 3-4 weeks.
--- NOTE | 2017-03-28 14:20 | PN ---
Progress Note (short form) - Note Progress Note: 71 year old gentleman with a significant past medical history of diabetes and HTN, who presents to the emergency department with right hand weakness and right lower extremity weakness for the past 2 days. He states that the symptoms began evening, the right leg weakness has improved but not the arm weakness and then symptoms have not alleviated or worsened. He notes that he is unable to lift his right arm above his head. He also reported numbness on the right upper extremity but denies it noew. He denies any kind of fall or head injury. He states that he takes a daily aspirin but not plavix. He reports 3 days prior to the inception of current event he did not take ANY of his medications.. He reports that he has chronic lower extremity edema. The patient denies chest pain, shortness of breath, headache and dizziness. Denies fever, chills, nausea, vomit, diarrhea and constipation. Denies dysuria, frequency, urgency and hematuria. FU: right sided weakness arm and face with dysarthria--stable MRI BRAIN left frontal and parietal infarct acute Dopplers : left carotid stenosis 70% /CTA corroborates Home Medications - Allergies Allergies/Adverse Reactions: Allergies Allergy/AdvReac Type Severity Reaction Status Date / Time No Known Allergies Allergy Verified 03/25/17 10:50 - Home Medications Home Medications: Ambulatory Orders Lisinopril/Hydrochlorothiazide [Lisinopril-Hctz 10-12.5 mg Tab] 1 each PO DAILY 11/04/16 Amlodipine Besylate [Norvasc -] 10 mg PO DAILY tablet 11/05/16 Aspirin Coated [Ecotrin -] 81 mg PO DAILY tablet.ec 11/05/16 Atorvastatin Ca [Lipitor] 40 mg PO HS tablet 11/05/16 Canagliflozin [Invokana] 100 mg PO DAILY 11/05/16 Hydrochlorothiazide [Hctz -] 12.5 mg PO DAILY cap 11/05/16 Insulin Degludec [Tresiba Flextouch U-100] 0.001 ml SQ DAILY 11/05/16 Linagliptin/Metformin HCl [Jentadueto 2.5 mg-500 mg Tab] 1 each PO BID 11/05/16 Physical Exam-Neuro Vital Signs: Vital Signs Temperature 98.0 F 03/28/17 09:07 Pulse Rate 63 03/28/17 09:07 Respiratory Rate 20 03/28/17 09:07 Blood Pressure 154/80 03/28/17 09:07 O2 Sat by Pulse Oximetry (%) 97 03/28/17 09:00 - Neuro Exam Dominant Hand: Right Mini Mental Exam: HIF intact Cranial Nerves II-XII Intact: No (slight right central facial) Gag: Present DTR's: 0 Left Achilles, 0 Right Achilles, 1+ Right Bicep, 1+ Right Tricep, 1+ Right Brachioradialis, 2+ Left Bicep, 2+ Left Tricep, 2+ Left Brachioradialis Response to light touch: Abnormal (there) Motor Strength: : Right Arm (Biceps/triceps/deltoid-4+/5, hand client relations specialist 4/5), 5/5: Left Arm, Right Leg (5/5 throughout but ankle ext. rotated, DF-4/5) Gait: Other (very slight right hemiparetic gait.) NIH Stroke Scale - Total Score NIH Stroke Scale Score: Imaging - Results Cat Scan: Report Reviewed, Image Reviewed (Ct head without evidence of acute infarct.) Assessment/Plan Pt. with mild right hemiparesis face/arm 4/5 weakness, + left sided frontal/parietal stroke on MRI, + symptomatic carotid L stenosis on doppler /CTA to proceed with CEA in the next 1-2 weeks as outpt do not need heparin at this stage, pt is neurologically stable ASA/plavix (if ok by vascular in interim) /statin stable for DC Dr Cooper [phone]
[2017-03-28] MEDS ORDERED: INSULIN (NOVOLOG) ASPART 100 UNITS/ML 10ML VIAL ONE (21:07)
[2017-03-28] MEDS: ATORVASTATIN CA 40 MG TABLET (FP) PO SCH (21:13)
--- NOTE | 2017-03-28 21:40 | PN ---
Progress Note, Physician - Current Medication List Current Medications: Active Medications Acetaminophen (Tylenol -) 650 mg PO Q6H PRN PRN Reason: FEVER OR PAIN Last Admin: 03/28/17 05:33 Dose: 650 mg Aspirin (Ecotrin -) 81 mg PO DAILY [facility] Last Admin: 03/28/17 09:05 Dose: 81 mg Atorvastatin Calcium (Lipitor -) 40 mg PO HS [facility] Last Admin: 03/28/17 21:13 Dose: 40 mg Clopidogrel Bisulfate (Plavix -) 75 mg PO DAILY [facility] Last Admin: 03/28/17 09:05 Dose: 75 mg Heparin Sodium (Porcine) (Heparin -) 5,000 unit SQ BID [facility] Last Admin: 03/28/17 21:12 Dose: 5,000 unit Hydrochlorothiazide (Hctz -) 12.5 mg PO DAILY [facility] Last Admin: 03/28/17 09:05 Dose: 12.5 mg Insulin Aspart (Novolog Vial Sliding Scale -) 1 vial SQ ACHS [facility] PRN Reason: Protocol Last Admin: 03/28/17 21:13 Dose: Not Given Metformin HCl (Glucophage -) 500 mg PO BIDI [facility] Last Admin: 03/28/17 18:01 Dose: 500 mg Non-Formulary Medication (Canagliflozin [Invokana]) 100 mg PO DAILY [facility] Non-Formulary Medication (Insulin Degludec [Tresiba Flextouch U-100]) 0.001 ml SQ DAILY [facility] Sitagliptin Phosphate (Januvia -) 100 mg PO DAILY@0700 [facility] Last Admin: 03/28/17 06:13 Dose: 100 mg Tamsulosin HCl (Flomax -) 0.4 mg PO DAILY@0830 [facility] Last Admin: 03/28/17 09:05 Dose: 0.4 mg - Objective Vital Signs: Vital Signs Temperature 97.4 F L 03/28/17 20:45 Pulse Rate 59 L 03/28/17 20:45 Respiratory Rate 20 03/28/17 20:45 Blood Pressure 125/78 03/28/17 20:45 O2 Sat by Pulse Oximetry (%) 94 L 03/28/17 20:45 Constitutional: Yes: Well Nourished HENT: Yes: WNL Neck: Yes: Supple Cardiovascular: Yes: WNL, Regular Rate and Rhythm Respiratory: Yes: WNL, Regular, CTA Bilaterally Gastrointestinal: Yes: WNL, Normal Bowel Sounds, Soft Labs: CBC, BMP 03/26/17 11:50 03/26/17 11:50 INR, PTT INR 1.06 (0.82-1.09) 03/25/17 11:41 Problem List - Problems (1) CVA (cerebral vascular accident) Code(s): I63.9 - CEREBRAL INFARCTION, UNSPECIFIED Qualifiers: CVA mechanism: unspecified Qualified Code(s): I63.9 - Cerebral infarction, unspecified (2) Carotid stenosis with cerebral infarction less than 8 weeks ago Code(s): I69.30 - UNSPECIFIED SEQUELAE OF CEREBRAL INFARCTION (3) Hypertension Code(s): I10 - ESSENTIAL (PRIMARY) HYPERTENSION (4) Diabetes type 2, controlled Code(s): E11.9 - TYPE 2 DIABETES MELLITUS WITHOUT COMPLICATIONS (5) HLD (hyperlipidemia) Code(s): E78.5 - HYPERLIPIDEMIA, UNSPECIFIED (6) BPH (benign prostatic hyperplasia) Code(s): N40.0 - BENIGN PROSTATIC HYPERPLASIA WITHOUT LOWER URINRY TRACT SYMP (7) COPD (chronic obstructive pulmonary disease) Code(s): J44.9 - CHRONIC OBSTRUCTIVE PULMONARY DISEASE, UNSPECIFIED
[2017-03-29] MEDS: INSULIN SLIDING SCALE (NOVOLOG) 1 VIAL SQ SCH (05:59)
[2017-03-29] MEDS: sitaGLIPtin PHOSPHATE 100 MG TABLET (FP) PO SCH (06:04)
[2017-03-29] MEDS: metFORMIN HCL 500 MG TABLET (FP) PO SCH (06:04)
[2017-03-29 06:46] VITALS: BP 144/68; PULSE 60; TEMP 97.6
--- NOTE | 2017-03-29 09:22 | PN ---
Progress Note, Physician Chief Complaint: no distress TELE: NSR - Current Medication List Current Medications: Active Medications Acetaminophen (Tylenol -) 650 mg PO Q6H PRN PRN Reason: FEVER OR PAIN Last Admin: 03/28/17 05:33 Dose: 650 mg Aspirin (Ecotrin -) 81 mg PO DAILY [facility] Last Admin: 03/28/17 09:05 Dose: 81 mg Atorvastatin Calcium (Lipitor -) 40 mg PO HS [facility] Last Admin: 03/28/17 21:13 Dose: 40 mg Clopidogrel Bisulfate (Plavix -) 75 mg PO DAILY [facility] Last Admin: 03/28/17 09:05 Dose: 75 mg Heparin Sodium (Porcine) (Heparin -) 5,000 unit SQ BID [facility] Last Admin: 03/28/17 21:12 Dose: 5,000 unit Hydrochlorothiazide (Hctz -) 12.5 mg PO DAILY [facility] Last Admin: 03/28/17 09:05 Dose: 12.5 mg Insulin Aspart (Novolog Vial Sliding Scale -) 1 vial SQ ACHS [facility] PRN Reason: Protocol Last Admin: 03/29/17 05:59 Dose: Not Given Metformin HCl (Glucophage -) 500 mg PO BIDI [facility] Last Admin: 03/29/17 06:04 Dose: 500 mg Non-Formulary Medication (Canagliflozin [Invokana]) 100 mg PO DAILY [facility] Non-Formulary Medication (Insulin Degludec [Tresiba Flextouch U-100]) 0.001 ml SQ DAILY [facility] Sitagliptin Phosphate (Januvia -) 100 mg PO DAILY@0700 [facility] Last Admin: 03/29/17 06:04 Dose: 100 mg Tamsulosin HCl (Flomax -) 0.4 mg PO DAILY@0830 [facility] Last Admin: 03/28/17 09:05 Dose: 0.4 mg - Objective Vital Signs: Vital Signs Temperature 97.6 F 03/29/17 06:00 Pulse Rate 60 03/29/17 06:00 Respiratory Rate 20 03/29/17 06:00 Blood Pressure 144/68 03/29/17 06:00 O2 Sat by Pulse Oximetry (%) 94 L 03/28/17 20:45 Constitutional: Yes: No Distress Cardiovascular: Yes: Regular Rate and Rhythm, Other Gastrointestinal: Yes: Soft (non-tender) Edema: No Neurological: Yes: Alert Labs: CBC, BMP 03/26/17 11:50 03/26/17 11:50 INR, PTT INR 1.06 (0.82-1.09) 03/25/17 11:41 - ....Imaging EKG: Image Reviewed Assessment/Plan 71 year old man with a history of HTN, DMII, HLD, carotid artery disease, admitted with R sided weakness found to have L sided CVAs, LICA stenosis. CVA-possible significant LICA stenosis -CTA 70% LICA stenosis, vascular input noted. -no sig arrhythmias seen on tele, no afib/aflutter -neuro evaluation appreciated -echo shows nl LV fxn, diastolic dysfunction. -to cont asa and plavix for now -cont statin Preop evaluation for interval L.CEA: -Patient can follow up in office and we can provide periop evaluation closer to time of planned surgery. Will be done after adequate period for neuro recovery, usually 3-4 weeks.
[2017-03-29] MEDS: TAMSULOSIN HCL 0.4 MG CAP.ER.24H (FP) PO SCH (09:39)
[2017-03-29] MEDS: CLOPIDOGREL BISULFATE 75 MG TABLET (FP) PO SCH (09:40)
[2017-03-29] MEDS: ASPIRIN COATED 81 MG TABLET.EC PO SCH (09:40)
[2017-03-29] MEDS: HYDROCHLOROTHIAZIDE 12.5 MG CAPSULE (FP) PO SCH (09:44)
[2017-03-29] MEDS: HEPARIN NA (PORCINE) 5,000 UNITS/ML 1ML VIAL SQ SCH (09:44)
== END 2017-03-29 11:53 | disposition home or self-care (01) | DRG 65 ==
LOC: JER 10:49 → JERFT 10:49 → SUPCPDRO 10:49 → UNDOADMIN 13:47 → JERBED 13:47 → J4S 16:46
PROVIDERS: ADMIT Internal Medicine; ATTEND Internal Medicine
DX: I63.232 Cerebral infarction due to unspecified occlusion or stenosis of left carotid arteries (principal); G81.94 Hemiplegia, unspecified affecting left nondominant side; R47.1 Dysarthria and anarthria; E11.9 Type 2 diabetes mellitus without complications; I10 Essential (primary) hypertension; Z79.4 Long term (current) use of insulin; M54.9 Dorsalgia, unspecified; E78.5 Hyperlipidemia, unspecified; J44.9 Chronic obstructive pulmonary disease, unspecified; N40.0 Benign prostatic hyperplasia without lower urinary tract symptoms
CPT/HCPCS: 36415; 70450-TC; 70498-TC; 70551-TC; 80053; 81003; 82465; 82550; 83036; 83718; 83721; 84478; 84484; 85025; 85610; 86850; 86900; 86901; 93005; 93010; 93306-TC; 93880-TC; 97116-GP; 97161-GP; 99283-25; J1644

== ENCOUNTER 2017-04-11 14:03 | Emergency (ER) | payer OTHER ==
[2017-04-11 14:14] VITALS: BMI 28.1
--- NOTE | 2017-04-11 18:59 | PDOC ---
[id number] 71 year old male with significant medical hx of IDDM, HTN, HLD, BPH , on plavix, COPD, CVA (04/24/17) with some right sided residual weakness, and carotid stenosis who is presenting to the ED with five days of intermittent fever, cough and rhinorrhea. The patient complains of subjective fevers with chills and hot flashes at night; his temp was measured during the interview and it was 99.5. The patient also endorses some sore throat. Patient has a secondary complaint of three days of dizziness that have made it difficult for him to walk. Denies any chest pain, lightheadedness, shortness of breath, syncope, nausea, vomiting, diarrhea, or abdominal pain. Vascular Surgeon: Chidi Saenz MD [employer] Instructor: Eris Salazar MD PMD: Virgil Mercedes MD <Sweetie Kate - Last Filed: 04/11/17 21:16> <Padma Sibley - Last Filed: 04/12/17 03:03> - General Chief Complaint: Weakness Stated Complaint: WEAKNESS Time Seen by Provider: 04/11/17 17:12 Past History <Sweetie Kate - Last Filed: 04/11/17 21:16> - Past Medical History Dementia: Yes Diabetes: Yes HTN: Yes Hypercholesterolemia: Yes - Immunization History Immunization Up to Date: Yes - Psycho/Social/Smoking Cessation Hx Anxiety: No Suicidal Ideation: No Smoking History: Former smoker Have you smoked in the past 12 months: No Information on smoking cessation initiated: No Hx Alcohol Use: No Drug/Substance Use Hx: No Substance Use Type: None Hx Substance Use Treatment: No <Padma Sibley - Last Filed: 04/12/17 03:03> - Past Medical History Allergies/Adverse Reactions: Allergies Allergy/AdvReac Type Severity Reaction Status Date / Time No Known Allergies Allergy Verified 04/11/17 14:15 Home Medications: Ambulatory Orders Aspirin Coated [Ecotrin -] 81 mg PO DAILY tablet.ec 11/05/16 Atorvastatin Ca [Lipitor] 40 mg PO HS tablet 11/05/16 Canagliflozin [Invokana] 100 mg PO DAILY 11/05/16 Hydrochlorothiazide [Hctz -] 12.5 mg PO DAILY cap 11/05/16 Insulin Degludec [Tresiba Flextouch U-100] 0.001 ml SQ DAILY 11/05/16 Clopidogrel Bisulfate [Plavix -] 75 mg PO DAILY tablet 03/28/17 Metformin HCl [Glucophage -] 500 mg PO BIDI tablet 03/28/17 Amlodipine Besylate [Norvasc -] 5 mg PO DAILY #0 tablet 03/29/17 Review of Systems - Review of Systems Comments:: 04/11/17 19:02 CONSTITUTIONAL: Present: fever, chills Absent: generalized weakness, malaise, loss of appetite HEENT: Present: throat pain, rhinorrhea Absent: nasal congestion, throat swelling, difficulty swallowing, mouth swelling , ear pain, eye pain, visual changes CARDIOVASCULAR: Absent: chest pain, syncope, palpitations, irregular heart rate, lightheadedness , peripheral edema RESPIRATORY: Present: cough Absent: shortness of breath, dyspnea with exertion, orthopnea, wheezing, stridor , hemoptysis GASTROINTESTINAL: Absent: abdominal pain, abdominal distension, nausea, vomiting, diarrhea, constipation, melena, hematochezia GENITOURINARY: Absent: dysuria, frequency, urgency, hesitancy, hematuria, flank pain, genital pain MUSCULOSKELETAL: Absent: myalgia, arthralgia, joint swelling SKIN: Absent: rash, itching, pallor HEMATOLOGIC/IMMUNOLOGIC: Absent: easy bleeding, easy bruising, lymphadenopathy, frequent infections ENDOCRINE: Absent: unexplained weight gain, unexplained weight loss, heat intolerance, cold intolerance NEUROLOGIC: Present: dizziness, difficulty walking Absent: headache, focal weakness or paresthesia, seizure, mental status changes , bladder or bowel incontinence. PSYCHIATRIC: Absent: anxiety, depression, suicidal or homicidal ideation, hallucinations <Sweetie Kate - Last Filed: 04/11/17 21:16> *Physical Exam - Vital Signs Last Vital Signs Temp Pulse Resp BP Pulse Ox 98.9 F 104 H 18 151/93 97 04/11/17 14:11 04/11/17 14:11 04/11/17 14:11 04/11/17 14:11 04/11/17 14:11 - Physical Exam Comments: 04/11/17 19:06 GENERAL: Well developed, well nourished. Awake and alert. No acute distress. HEENT: Normocephalic, atraumatic. PERRLA, EOMI. No conjunctival pallor. Sclera are non- icteric. Moist mucous membranes. Oropharynx is clear. NECK: Supple. Full ROM. No JVD. Carotid pulses 2+ and symmetric, without bruits. No thyromegaly. No lymphadenopathy. CARDIOVASCULAR: Regular rate and rhythm. No murmurs, rubs, or gallops. No bruits. Distal pulses are 2+ and symmetric. PULMONARY: No evidence of respiratory distress. Lungs clear to auscultation bilaterally. No wheezing, rales or rhonchi. ABDOMINAL: Soft. Non-tender. Non-distended. No rebound or guarding. No organomegaly. Normoactive bowel sounds. MUSCULOSKELETAL: Normal range of motion at all joints. No bony deformities or tenderness. No CVA tenderness. EXTREMITIES: No cyanosis. No clubbing. No edema. No calf tenderness. SKIN: Warm and dry. Normal capillary refill. No rashes. No jaundice. NEUROLOGICAL: A&O x 3. Cranial nerves 2-12 intact. Right sided weakness, right leg cannot withstand gravity. 4/5 hand grasp to the right. Normal speech. PSYCHIATRIC: Cooperative. Good eye contact. Appropriate mood and affect. <Sweetie Kate - Last Filed: 04/11/17 21:16> - Vital Signs Last Vital Signs Temp Pulse Resp BP Pulse Ox 98.9 F 104 H 18 151/93 97 04/11/17 14:11 04/11/17 14:11 04/11/17 14:11 04/11/17 14:11 04/11/17 14:11 <Padma Sibley - Last Filed: 04/12/17 03:03> ED Treatment Course - LABORATORY CBC & Chemistry Diagram: 04/11/17 19:21 04/11/17 19:21 - RADIOLOGY Radiograph Interpretation: 04/11/17 21:[address] Impression: No evidence of acute intracranial pathology. Reported By: Daniel Garrett MD <Sweetie Kate - Last Filed: 04/11/17 21:16> - LABORATORY CBC & Chemistry Diagram: 04/11/17 19:21 04/11/17 19:21 <Padma Sibley - Last Filed: 04/12/17 03:03> Medical Decision Making - Medical Decision Making 04/12/17 02:59 71-year-old male presents to the emergency department with complaints of nasal congestion, sneezing, cough and some body aches. He had a low-grade fever. Patient has significant past medical history of having a CVA in the past month. 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 Chemistries were reviewed and his glucose is 223. He is a known diabetic Chest x-ray did not show any effusions, infiltrates or congestion Urinalysis was negative -he did not have influenza He complains of a headache and a CAT scan of his brain did not show any acute infarct or bleed. His headache resolved with Tylenol. Impression seasonal allergies, URI symptoms. Patient discharged home to continue with his seasonal allergy medications. He does have an appointment with Dr. Hill and Dr. Saenz this week <Padma Sibley - Last Filed: 04/12/17 03:03> *DC/Admit/Observation/Transfer - Attestations Scribe Attestion: 04/11/17 19:05 Documentation prepared by Sweetie Kate, acting as medical apparatus model maker for Padma Sibley MD. <Sweetie Kate - Last Filed: 04/11/17 21:16> <Padma Sibley - Last Filed: 04/12/17 03:03> Diagnosis at time of Disposition: Cough, Nasal congestion Seasonal allergic rhinitis Qualifiers: Allergic rhinitis trigger: unspecified Qualified Code(s): J30.2 - Other seasonal allergic rhinitis - Discharge Dispostion Disposition: HOME Condition at time of disposition: Stable - Referrals Referrals: Virgil Mercedes MD [Primary Care Provider] - - Patient Instructions Printed Discharge Instructions: DI for Nasal Congestion, DI for Cough-Child Additional Instructions: please keep your doctor's appointment continue taking your claritin for seasonal allergies to help with your nasal congestion,sneezing return for any worsening symptoms If you develop fevers ,productive cough return to the ER
[2017-04-11] MEDS ORDERED: SODIUM CHLORIDE 1,000 ML IV STA (19:00)
[2017-04-11 19:23] LABS: VENOUS BLOOD GAS HCO3 25.5 meq/L (19-25); VENOUS PH 7.31 (7.32-7.42)
[2017-04-11 19:54] LABS: INR 1.12 (0.82-1.09); PROTHROMBIN TIME (PATIENT) 12.4 SEC (9.98-11.88)
[2017-04-11 19:57] LABS: ACTIVATED PTT 29.6 SECONDS (26.9-34.4)
[2017-04-11 20:26] LABS: BASOPHIL 0.9 % (0-2.0); EOSINOPHIL 2.9 % (0-4.5); MCH 26.7 pg (25.7-33.7); MCHC 32.6 g/dl (32.0-35.9); MEAN CELL VOLUME 82.1 fl (80-96); MEAN PLT VOLUME 8.9 fl (7.5-11.1); NEUTROPHILS 77.2 % (42.8-82.8); PLATELET COUNT 239 K/MM3 (134-434); RDW 14.7 % (11.9-15.9); WHITE BLOOD COUNT 6.9 K/mm3 (4.0-10.0)
[2017-04-11 20:27] LABS: URINE APPEARANCE CLEAR; URINE BILIRUBIN NEGATIVE (NEGATIVE); URINE BLOOD NEGATIVE (NEGATIVE); URINE COLOR STRAW; URINE GLUCOSE (UA) 3+ (NEGATIVE); URINE KETONE NEGATIVE (NEGATIVE); URINE LEUK ESTERASE NEGATIVE (NEGATIVE); URINE NITRITE NEGATIVE (NEGATIVE); URINE PROTEIN NEGATIVE (NEGATIVE); URINE UROBILINOGEN NEGATIVE E.U./dl (0.2-1.0)
[2017-04-11 20:29] LABS: ALBUMIN 4.2 g/dl (3.4-5.0); ANION GAP 10 (8-16); BILIRUBIN,TOTAL 0.6 mg/dL (0.2-1.0); CALCIUM 9.2 mg/dL (8.5-10.1); CO2 28 mmol/L (21-32); COCKROFT - GAULT 80.51; GLUCOSE,RANDOM 223 mg/dL (74-106); SGOT/AST 11 U/L (15-37); SGPT/ALT 29 U/L (12-78); TOT PROT 7.5 g/dl (6.4-8.2)
[2017-04-11 20:32] LABS: ALK PHOS 100 U/L (45-117); TROPONIN I < 0.02 ng/ml (0.00-0.05)
[2017-04-11] MEDS ORDERED: ACETAMINOPHEN 325 MG TABLET (FP) ONE (21:23)
[2017-04-11] MEDS ORDERED: ACETAMINOPHEN 325 MG TABLET (FP) PO ONE (21:30)
[2017-04-11 21:54] VITALS: BP 152/84; PULSE 84; TEMP 98.5
--- NOTE | 2017-04-16 12:25 | PDOC ---
Patient Follow-up (Call Back) - Post ED Follow - Up Chief Complaint: Weakness Condition at time of discharge: Stable Disposition at time of original discharge: HOME Reason for Call Back: Abnwl. Microbiology Signs/Symptoms Improved: Yes (feels better, no fever) - Disposition Rx Needed: No Additional Instructions/Notes: pt has appt with pmd tomorrow and will let him know about blood cultures. pt feeling better. only one bottle positive with gram +cocci, other negative. ? contamination. pmd can further evaluate
--- NOTE | 2017-04-29 14:41 | PN ---
Progress Note, Physician History of Present Illness: Pt was discharged home clau the ER and never admitted - Objective Vital Signs: Vital Signs Temperature 98.5 F 04/11/17 21:53 Pulse Rate 84 04/11/17 21:53 Respiratory Rate 20 04/11/17 21:53 Blood Pressure 152/84 04/11/17 21:53 O2 Sat by Pulse Oximetry (%) 99 04/11/17 21:53 Labs: CBC, BMP 04/11/17 19:21 04/11/17 19:21 INR, PTT INR 1.12 (0.82-1.09) 04/11/17 19:21
--- NOTE | 2017-04-29 14:43 | DS ---
Physical Examination Vital Signs: Vital Signs Temperature 98.5 F 04/11/17 21:53 Pulse Rate 84 04/11/17 21:53 Respiratory Rate 20 04/11/17 21:53 Blood Pressure 152/84 04/11/17 21:53 O2 Sat by Pulse Oximetry (%) 99 04/11/17 21:53 Constitutional: Yes: Well Nourished Neck: Yes: Supple Cardiovascular: Yes: WNL, Regular Rate and Rhythm Respiratory: Yes: WNL, Regular, CTA Bilaterally Gastrointestinal: Yes: WNL, Normal Bowel Sounds, Soft Labs: CBC, BMP 04/11/17 19:21 04/11/17 19:21 Discharge Summary Reason For Visit: WEAKNESS Condition: Stable - Instructions Diet, Activity, Other Instructions: please keep your doctor's appointment continue taking your claritin for seasonal allergies to help with your nasal congestion,sneezing return for any worsening symptoms If you develop fevers ,productive cough return to the ER Referrals: Virgil Mercedes MD [Primary Care Provider] - Disposition: HOME - Home Medications Comprehensive Discharge Medication List: Ambulatory Orders Aspirin Coated [Ecotrin -] 81 mg PO DAILY tablet.ec 11/05/16 Atorvastatin Ca [Lipitor] 40 mg PO HS tablet 11/05/16 Canagliflozin [Invokana] 100 mg PO DAILY 11/05/16 Hydrochlorothiazide [Hctz -] 12.5 mg PO DAILY cap 11/05/16 Insulin Degludec [Tresiba Flextouch U-100] 0.001 ml SQ DAILY 11/05/16 Clopidogrel Bisulfate [Plavix -] 75 mg PO DAILY tablet 03/28/17 Metformin HCl [Glucophage -] 500 mg PO BIDI tablet 03/28/17 Amlodipine Besylate [Norvasc -] 5 mg PO DAILY #0 tablet 03/29/17
== END 2017-04-11 21:55 | disposition home or self-care (01) ==
LOC: JER 14:03
PROC: 3E0337Z Introduction of Electrolytic and Water Balance Substance into Peripheral Vein, Percutaneous Approach (ICD-10-PCS; principal; 2017-04-11)
DX: J30.2 Other seasonal allergic rhinitis (principal); I10 Essential (primary) hypertension; E11.9 Type 2 diabetes mellitus without complications; Z79.4 Long term (current) use of insulin; J44.9 Chronic obstructive pulmonary disease, unspecified; E78.00 Pure hypercholesterolemia, unspecified; F03.90 Unspecified dementia, unspecified severity, without behavioral disturbance, psychotic disturbance, mood disturbance, and anxiety; I65.29 Occlusion and stenosis of unspecified carotid artery; I69.851 Hemiplegia and hemiparesis following other cerebrovascular disease affecting right dominant side
CPT/HCPCS: 36415; 70450-TC; 71010-TC; 80053; 81003; 82550; 82803; 83605; 84484; 85025; 85610; 85730; 86850; 86900; 86901; 87040; 87086; 87804; 96360; 99284-25

== ENCOUNTER 2017-04-23 08:11 | Inpatient (IN) | payer OTHER ==
[2017-04-23 08:24] VITALS: BMI 27.6
--- NOTE | 2017-04-23 08:55 | PDOC ---
History of Present Illness - General History Source: Patient Exam Limitations: No Limitations - History of Present Illness Initial Comments: 04/23/17 09:35 The patient is a 71 year old male with a significant past medical history of hypertension, hypercholesterolemia, diabetes, COPD, CVA (03/25/17), and recent carotid surgery, presenting to the Emergency Department with body aches and vomiting for at least three days. The patient reports that he had surgery about one week ago for left carotid artery stenosis at [facility]. He reports that over the past few days he has been experiencing multiple episodes vomiting, and is unable to keep down food or fluids. He reports that he has not been able to sleep due to the body aches. He reports that his whole body feels bad. The patient denies cough, fever, and chills. Patient denies diarrhea, or constipation. Patient denies headache, dizziness, and visual changes. PCP: Dr. Virgil Mercedes Surgical Hx: left carotid artery surgery <Susana Martin - Last Filed: 04/23/17 14:22> <Luke Aguilar - Last Filed: 04/23/17 15:32> - General Chief Complaint: Nausea/Vomiting Stated Complaint: VOMITING Time Seen by Provider: 04/23/17 08:54 Past History <Susana Martin - Last Filed: 04/23/17 14:22> - Past Medical History Dementia: Yes Diabetes: Yes HTN: Yes Hypercholesterolemia: Yes Other medical history: BPH - Immunization History Immunization Up to Date: Yes - Psycho/Social/Smoking Cessation Hx Anxiety: No Suicidal Ideation: No Smoking History: Former smoker Have you smoked in the past 12 months: No Information on smoking cessation initiated: No Hx Alcohol Use: No Drug/Substance Use Hx: No Substance Use Type: None Hx Substance Use Treatment: No <Luke Aguilar - Last Filed: 04/23/17 15:32> - Past Medical History Allergies/Adverse Reactions: Allergies Allergy/AdvReac Type Severity Reaction Status Date / Time No Known Allergies Allergy Verified 04/23/17 08:13 Home Medications: Ambulatory Orders Aspirin Coated [Ecotrin -] 81 mg PO DAILY tablet.ec 11/05/16 Atorvastatin Ca [Lipitor] 40 mg PO HS tablet 11/05/16 Canagliflozin [Invokana] 100 mg PO DAILY 11/05/16 Hydrochlorothiazide [Hctz -] 12.5 mg PO DAILY cap 11/05/16 Insulin Degludec [Tresiba Flextouch U-100] 0.001 ml SQ DAILY 11/05/16 Clopidogrel Bisulfate [Plavix -] 75 mg PO DAILY tablet 03/28/17 Metformin HCl [Glucophage -] 500 mg PO BIDI tablet 03/28/17 Amlodipine Besylate [Norvasc -] 5 mg PO DAILY #0 tablet 03/29/17 Review of Systems - Review of Systems Able to Perform ROS?: Yes Comments:: 04/23/17 09:35 GENERAL/CONSTITUTIONAL: + body aches. No fever or chills. No weakness. HEAD, EYES, EARS, NOSE AND THROAT: No change in vision. No ear pain or discharge. No sore throat. CARDIOVASCULAR: No chest pain or shortness of breath. RESPIRATORY: No cough, wheezing, or hemoptysis. GASTROINTESTINAL: + nausea, + vomiting. No diarrhea or constipation. GENITOURINARY: No dysuria, frequency, or change in urination. MUSCULOSKELETAL: No joint pain. No neck or back pain. SKIN: No rash NEUROLOGIC: No headache, vertigo, loss of consciousness, or change in strength/ sensation. ENDOCRINE: No increased thirst. No abnormal weight change. HEMATOLOGIC/LYMPHATIC: No anemia, easy bleeding, or history of blood clots. ALLERGIC/IMMUNOLOGIC: No hives or skin allergy. <Susana Martin - Last Filed: 04/23/17 14:22> *Physical Exam - Vital Signs Last Vital Signs Temp Pulse Resp BP Pulse Ox 98.1 F 75 18 154/79 97 04/23/17 08:14 04/23/17 08:14 04/23/17 08:14 04/23/17 08:14 04/23/17 08:14 - Physical Exam Comments: 04/23/17 09:54 GENERAL: Awake, alert, and fully oriented, in no acute distress HEAD: No signs of trauma EYES: PERRLA, EOMI, sclera anicteric, conjunctiva clear ENT: Auricles normal inspection, hearing grossly normal, nares patent, oropharynx clear without exudates. Moist mucosa NECK: Large swelling to left side of neck with scabbed incision site. Normal ROM , supple, no lymphadenopathy, JVD, or masses LUNGS: Breath sounds equal, clear to auscultation bilaterally. No wheezes, and no crackles HEART: Regular rate and rhythm, normal S1 and S2, no murmurs, rubs or gallops ABDOMEN: Soft, nontender, normoactive bowel sounds. No guarding, no rebound. No masses EXTREMITIES: Normal range of motion, no edema. No clubbing or cyanosis. No cords, erythema, or tenderness NEUROLOGICAL: Cranial nerves II through XII grossly intact. Normal speech SKIN: Warm, Dry, normal turgor, no rashes or lesions noted. <Susana Martin - Last Filed: 04/23/17 14:22> - Vital Signs Last Vital Signs Temp Pulse Resp BP Pulse Ox 98.1 F 75 18 154/79 97 04/23/17 08:14 04/23/17 08:14 04/23/17 08:14 04/23/17 08:14 04/23/17 08:14 <Luke Aguilar - Last Filed: 04/23/17 15:32> Heart Score/ECG Review #1 ECG reviewed & interpreted by me at: 09:50 (EKG interpretted by Dr. Aguilar. Normal sinus rhythm. Normal rate. Normal intervals. Normal EKG.) <Susana Martin - Last Filed: 04/23/17 14:22> ED Treatment Course - LABORATORY CBC & Chemistry Diagram: 04/23/17 09:45 04/23/17 09:45 - RADIOLOGY Radiograph Interpretation: 04/23/17 10:21 Chest XRay As reviewed by Dr. Bon Francisco IMPRESSION: No acute pathology. Weak inspiration. No change since 04/11/17. 04/23/17 13:37 Carotid Doppler As reviewed by Dr. To Huddleston IMPRESSION: Superficial soft tissue edema is visualized along the left neck. A 6 x 2cm nonspecific focus of fluid accumulation is seen interposed between the left internal and external carotid arteries- ? seroma, hematoma, or infected collection. <Susana Martin - Last Filed: 04/23/17 14:22> - LABORATORY CBC & Chemistry Diagram: 04/23/17 09:45 04/23/17 09:45 <Luke Aguilar - Last Filed: 04/23/17 15:32> Medical Decision Making - Medical Decision Making 04/23/17 09:36 [facility] Medical Records was called at . They are closed. 04/23/17 09:[address] Virgil Mercedes at office at 9:45, no answer. Will try again later. 04/23/17 14:23 Dr. Nice was called at the office at 2:20. Awaiting call back. <VeronicaSusana - Last Filed: 04/23/17 14:22> *DC/Admit/Observation/Transfer - Attestations Scribe Attestion: 04/23/17 09:37 Documentation prepared by Susana Martin, acting as biomedical engineering technician for Luke Aguilar DO. <Susana Martin - Last Filed: 04/23/17 14:22> - Discharge Dispostion Admit: Yes - Attestations Physician Attestion: 04/23/17 08:55 I, Dr. Luke Aguilar, attest that this document has been prepared under my direction and personally reviewed by me in its entirety. I further attest, that it accurately reflects all work, treatment, procedures and medical decision -making performed by me. <Luke Aguilar - Last Filed: 04/23/17 15:32> Diagnosis at time of Disposition: Bandemia, HLD (hyperlipidemia) Fluid collection at surgical site Qualifiers: Encounter type: initial encounter Qualified Code(s): T88.8XXA - Other specified complications of surgical and medical care, not elsewhere classified, initial encounter Leukocytosis Qualifiers: Leukocytosis type: bandemia Qualified Code(s): D72.825 - Bandemia Sepsis Qualifiers: Sepsis type: sepsis due to unspecified organism Qualified Code(s): A41.9 - Sepsis, unspecified organism Non-intractable vomiting with nausea Qualifiers: Vomiting type: unspecified Qualified Code(s): R11.2 - Nausea with vomiting, unspecified - Discharge Dispostion Condition at time of disposition: Improved - Referrals Referrals: Virgil Mercedes MD [Primary Care Provider] -
[2017-04-23] MEDS ORDERED: ONDANSETRON 4 MG/2 ML VIAL IVPB ONE (09:13)
[2017-04-23] MEDS ORDERED: ACETAMINOPHEN 1000 MG/100 ML VIAL (NON FORMULARY) IVPB ONE (09:13)
[2017-04-23] MEDS ORDERED: ACETAMINOPHEN INJECTION 100 ML IVPB ONE (09:27)
[2017-04-23] MEDS ORDERED: ONDANSETRON 4 MG/2 ML VIAL ONE (09:28)
[2017-04-23 09:50] LABS: BASOPHIL 0.3 % (0-2.0); EOSINOPHIL 0.4 % (0-4.5); MCH 27.2 pg (25.7-33.7); MCHC 33.6 g/dl (32.0-35.9); MEAN CELL VOLUME 81.2 fl (80-96); MEAN PLT VOLUME 8.2 fl (7.5-11.1); NEUTROPHILS 86.4 % (42.8-82.8); PLATELET COUNT 231 K/MM3 (134-434); RDW 14.5 % (11.9-15.9); WHITE BLOOD COUNT 10.7 K/mm3 (4.0-10.0)
[2017-04-23 10:10] LABS: INR 1.26 (0.82-1.09); PROTHROMBIN TIME (PATIENT) 13.9 SEC (9.98-11.88)
[2017-04-23 10:13] LABS: ALBUMIN 3.7 g/dl (3.4-5.0); ANION GAP 10 (8-16); BILIRUBIN,TOTAL 0.7 mg/dL (0.2-1.0); CALCIUM 8.8 mg/dL (8.5-10.1); CO2 27 mmol/L (21-32); CREATININE 0.8 mg/dL (0.7-1.3); GLUCOSE,RANDOM 225 mg/dL (74-106); SGOT/AST 14 U/L (15-37); SGPT/ALT 15 U/L (12-78); TOT PROT 6.9 g/dl (6.4-8.2)
[2017-04-23 10:15] LABS: ALK PHOS 89 U/L (45-117); TROPONIN I < 0.02 ng/ml (0.00-0.05)
[2017-04-23] MEDS ORDERED: PIPERACILLIN/TAZOB 3.375 GM/50 ML PRE-DOCKED IV ONE (15:27)
[2017-04-23] MEDS ORDERED: VANCOMYCIN 1,000 MG in DEXTROSE 5%-WATER - 250 ML IVPB ONE (15:27)
[2017-04-23] MEDS ORDERED: VANCOMYCIN 1 GRAM (PRE-DOCKED) 250 ML IVPB ONE (16:19)
[2017-04-23] MEDS ORDERED: PIPERACILLIN/TAZOB 3.375 GM 50 ML IVPB ONE (16:20)
[2017-04-23] MEDS ORDERED: ACETAMINOPHEN 325 MG TABLET (FP) PO ONE (17:19)
[2017-04-23] MEDS ORDERED: ACETAMINOPHEN 325 MG TABLET (FP) ONE (17:44)
[2017-04-23] MEDS ORDERED: morphine CARPU-JECT 2 MG/1 ML DISP.SYRIN IVPB ONE (22:15)
[2017-04-23] MEDS ORDERED: diphenhydrAMINE HCL 25 MG CAPSULE (FP) PO ONE (22:15)
[2017-04-24] MEDS ORDERED: morphine CARPU-JECT 2 MG/1 ML DISP.SYRIN IVPB ONE (00:15)
[2017-04-24] MEDS: morphine CARPU-JECT 4 MG/1 ML DISP.SYRIN IVPB PRN ×5 (04:46→21:43)
--- NOTE | 2017-04-24 09:05 | EKG ---
Test Reason : Blood Pressure : / mmHG Vent. Rate : 073 BPM Atrial Rate : 073 BPM P-R Int : 170 ms QRS Dur : 076 ms QT Int : 382 ms P-R-T Axes : 033 -25 -05 degrees QTc Int : 420 ms NORMAL SINUS RHYTHM LEFTWARD AXIS MINIMAL VOLTAGE CRITERIA FOR LVH, MAY BE NORMAL VARIANT BORDERLINE ECG WHEN COMPARED WITH ECG OF 11-APR-2017 19:40, NONSPECIFIC T WAVE ABNORMALITY NOW EVIDENT IN INFERIOR LEADS Confirmed by MEGHAN LEON MD ([id number]) on 04/24/2017 9:04:52 AM Referred By: Confirmed By:MEGHAN LEON MD
[2017-04-24] MEDS ORDERED: PIPERACILLIN/TAZOB 3.375 GM/50 ML PRE-DOCKED IVPB SCH (10:00)
[2017-04-24] MEDS ORDERED: VANCOMYCIN 1 GRAM (PRE-DOCKED) 1,000 MG/250 ML BAG IVPB ONE (10:15)
[2017-04-24] MEDS ORDERED: PIPERACILLIN/TAZOB 3.375 GM/50 ML PRE-DOCKED IVPB ONE (10:15)
[2017-04-24] MEDS: PATIENT'S OWN MEDICATION (NON-FORMULARY) (Canagliflozin [Invokana] 100 MG) PO SCH (10:27)
[2017-04-24] MEDS: HYDROCHLOROTHIAZIDE 12.5 MG CAPSULE (FP) PO SCH (10:33)
[2017-04-24] MEDS: INSULIN DEGLUDEC SQ SCH (10:33)
[2017-04-24] MEDS: CLOPIDOGREL BISULFATE 75 MG TABLET (FP) PO SCH (10:33)
[2017-04-24] MEDS: amLODIPine BESYLATE 5 MG TABLET (FP) PO SCH (10:33)
[2017-04-24] MEDS: ASPIRIN COATED 81 MG TABLET.EC PO SCH (10:33)
[2017-04-24] MEDS ORDERED: INSULIN (NOVOLOG) ASPART 100 UNITS/ML 10ML VIAL SQ ONE (14:00)
--- NOTE | 2017-04-24 14:59 | HP ---
Admitting History and Physical - Admission History of Present Illness: Pt is a 71 y/o male with PMH significant for HTN, HLD, diabetes, COPD, CVA (03/25) and carotid stenosis. About 1 week ago pt underwent Lt carotid endartectomy. Pt presented to the ER bc of increased pain/swelling of surgical site for at least the past 3-4 days. Pt also with body aches and vomiting for at least three days. In the ER pt had carotid US wc showed fluid collection. 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 (Carotid stenosis) Cardiovascular: Yes: Aneurysm, HTN, Hyperlipdemia Pulmonary: Yes: COPD Renal/: Yes: BPH, Other (PROSTATE BX) Musculoskeletal: Yes: Chronic low back pain Endocrine: Yes: Diabetes Mellitus - Past Surgical History Additional Past Surgical History: Carotid endartectomy - Smoking History Smoking history: Former smoker Have you smoked in the past 12 months: No If you are a former smoker, when did you quit?: 1979 - Alcohol/Substance Use Hx Alcohol Use: No History of Substance Use: reports: None - Social History ADL: Independent History of Recent Travel: No Home Medications - Allergies Allergies/Adverse Reactions: Allergies Allergy/AdvReac Type Severity Reaction Status Date / Time No Known Allergies Allergy Verified 04/23/17 08:13 - Home Medications Home Medications: Ambulatory Orders Aspirin Coated [Ecotrin -] 81 mg PO DAILY tablet.ec 11/05/16 Atorvastatin Ca [Lipitor] 40 mg PO HS tablet 11/05/16 Canagliflozin [Invokana] 100 mg PO DAILY 11/05/16 Hydrochlorothiazide [Hctz -] 12.5 mg PO DAILY cap 11/05/16 Insulin Degludec [Tresiba Flextouch U-100] 0.001 ml SQ DAILY 11/05/16 Clopidogrel Bisulfate [Plavix -] 75 mg PO DAILY tablet 03/28/17 Metformin HCl [Glucophage -] 500 mg PO BIDI tablet 03/28/17 Amlodipine Besylate [Norvasc -] 5 mg PO DAILY #0 tablet 03/29/17 Family Disease History - Family Disease History Family History: Unremarkable Review of Systems - Review of Systems Constitutional: reports: Loss of Appetite, Malaise, Weakness Eyes: reports: No Symptoms HENT: reports: Throat Pain Neck: reports: Other (Swelling) Cardiovascular: reports: No Symptoms Respiratory: reports: No Symptoms Gastrointestinal: reports: Nausea, Vomiting Physical Examination Vital Signs: Vital Signs Temperature 99.6 F 04/24/17 13:36 Pulse Rate 86 04/24/17 13:36 Respiratory Rate 22 04/24/17 13:36 Blood Pressure 167/97 04/24/17 13:36 O2 Sat by Pulse Oximetry (%) 97 04/23/17 20:18 Constitutional: Yes: Calm Eyes: Yes: WNL HENT: Yes: WNL Neck: Yes: Other (LT surigcal incision w/ minimal surrounding erythema/swelling) Cardiovascular: Yes: WNL Respiratory: Yes: WNL, Regular, CTA Bilaterally Gastrointestinal: Yes: WNL, Normal Bowel Sounds, Soft Musculoskeletal: Yes: WNL Extremities: Yes: WNL Edema: No Neurological: Yes: WNL ...Motor Strength: WNL Problem List - Problems (1) Carotid stenosis Assessment/Plan: Cont IV zosyn/vanco ID/Vascular consults Check ct scan neck Cont plavix/lipitor/asa Code(s): I65.29 - OCCLUSION AND STENOSIS OF UNSPECIFIED CAROTID ARTERY (2) Fluid collection at surgical site Assessment/Plan: As above Code(s): T88.8XXA - OTH COMPLICATIONS OF SURGICAL AND MEDICAL CARE, NEC, INIT Qualifiers: Encounter type: initial encounter Qualified Code(s): T88.8XXA - Other specified complications of surgical and medical care, not elsewhere classified, initial encounter (3) Vomiting with nausea, not intractable Assessment/Plan: Zofran prn Code(s): R11.2 - NAUSEA WITH VOMITING, UNSPECIFIED Qualifiers: Vomiting type: unspecified Qualified Code(s): R11.2 - Nausea with vomiting, unspecified (4) Diabetes type 2, controlled Assessment/Plan: Cont sliding scale w/ coverage Cont metformin Code(s): E11.9 - TYPE 2 DIABETES MELLITUS WITHOUT COMPLICATIONS (5) Hypertension Assessment/Plan: Bp stable Cont asa/norvasc Code(s): I10 - ESSENTIAL (PRIMARY) HYPERTENSION (6) HLD (hyperlipidemia) Assessment/Plan: Cont lipitor Code(s): E78.5 - HYPERLIPIDEMIA, UNSPECIFIED (7) BPH (benign prostatic hyperplasia) Assessment/Plan: Cont flomax Code(s): N40.0 - BENIGN PROSTATIC HYPERPLASIA WITHOUT LOWER URINRY TRACT SYMP (8) COPD (chronic obstructive pulmonary disease) Code(s): J44.9 - CHRONIC OBSTRUCTIVE PULMONARY DISEASE, UNSPECIFIED (9) CVA (cerebral vascular accident) Code(s): I63.9 - CEREBRAL INFARCTION, UNSPECIFIED Qualifiers: CVA mechanism: unspecified Qualified Code(s): I63.9 - Cerebral infarction, unspecified
--- NOTE | 2017-04-24 15:55 | CONSULT ---
Consult Consult Specialty:: infectious diseases Reason for Consultation:: swelling of the left side of the neck post carotid surgery - History of Present Illness Chief Complaint: pain and swellin and redness of the left side of the face History of Present Illness: 71 y/o male with PMH significant for HTN, HLD, diabetes, COPD, CVA (03/25/17) and carotid stenosis. About 1 week ago pt underwent Lt carotid endartectomy. admitted because of increased pain/swelling of surgical site for at least the past 3-4 days. comes wiht pain and swelling of the side and vomiting Patient was worked up and found to have collection at the operated site - History Source History Provided By: Patient Limitations to Obtaining History: No Limitations - Past Medical History Cardio/Vascular: Yes: Aneurysm, HTN, Hyperlipdemia Pulmonary: Yes: COPD Renal/: Yes: BPH, Other (PROSTATE BX) Musculoskeletal: Yes: Chronic low back pain Endocrine: Yes: Diabetes Mellitus - Alcohol/Substance Use Hx Alcohol Use: No History of Substance Use: reports: None - Smoking History Smoking history: Former smoker Have you smoked in the past 12 months: No If you are a former smoker, when did you quit?: 1979 - Social History ADL: Independent History of Recent Travel: No Home Medications - Allergies Allergies/Adverse Reactions: Allergies Allergy/AdvReac Type Severity Reaction Status Date / Time No Known Allergies Allergy Verified 04/23/17 08:13 - Home Medications Home Medications: Ambulatory Orders Aspirin Coated [Ecotrin -] 81 mg PO DAILY tablet.ec 11/05/16 Atorvastatin Ca [Lipitor] 40 mg PO HS tablet 11/05/16 Canagliflozin [Invokana] 100 mg PO DAILY 11/05/16 Hydrochlorothiazide [Hctz -] 12.5 mg PO DAILY cap 11/05/16 Insulin Degludec [Tresiba Flextouch U-100] 0.001 ml SQ DAILY 11/05/16 Clopidogrel Bisulfate [Plavix -] 75 mg PO DAILY tablet 03/28/17 Metformin HCl [Glucophage -] 500 mg PO BIDI tablet 03/28/17 Amlodipine Besylate [Norvasc -] 5 mg PO DAILY #0 tablet 03/29/17 Review of Systems - Review of Systems Constitutional: reports: No Symptoms Eyes: reports: No Symptoms HENT: reports: Other (swelling left side of the face and neck) Neck: reports: No Symptoms Cardiovascular: reports: No Symptoms Respiratory: reports: No Symptoms Gastrointestinal: reports: No Symptoms Musculoskeletal: reports: Muscle Pain Integumentary: reports: Change in Color, Erythema (of the neck wound) Neurological: reports: No Symptoms Endocrine: reports: No Symptoms Hematology/Lymphatic: reports: No Symptoms Psychiatric: reports: No Symptoms Physical Exam Vital Signs: Vital Signs Temperature 99.6 F 04/24/17 13:36 Pulse Rate 86 04/24/17 13:36 Respiratory Rate 22 04/24/17 13:36 Blood Pressure 167/97 04/24/17 13:36 O2 Sat by Pulse Oximetry (%) 97 04/23/17 20:18 Constitutional: Yes: Well Nourished, Calm, Moderate Distress Eyes: Yes: Conjunctiva Clear HENT: Yes: Atraumatic Neck: Yes: Supple, Other (Other (LT surigcal incision w/ minimal surrounding erythema/swelling)) Cardiovascular: Yes: Regular Rate and Rhythm Respiratory: Yes: Regular, CTA Bilaterally Gastrointestinal: Yes: Normal Bowel Sounds, Soft Musculoskeletal: Yes: WNL Extremities: Yes: WNL Neurological: Yes: Alert, Oriented Psychiatric: Yes: Alert Imaging - Results Chest X-ray: Report Reviewed, Image Reviewed Ultrasound: Report Reviewed, Image Reviewed Assessment/Plan - Problems (1) Carotid stenosis Code(s): I65.29 - OCCLUSION AND STENOSIS OF UNSPECIFIED CAROTID ARTERY (2) Fluid collection at surgical site Code(s): T88.8XXA - OTH COMPLICATIONS OF SURGICAL AND MEDICAL CARE, NEC, INIT Qualifiers: Encounter type: initial encounter Qualified Code(s): T88.8XXA - Other specified complications of surgical and medical care, not elsewhere classified, initial encounter (3) Vomiting with nausea, not intractable Code(s): R11.2 - NAUSEA WITH VOMITING, UNSPECIFIED Qualifiers: Vomiting type: unspecified Qualified Code(s): R11.2 - Nausea with vomiting, unspecified (4) Diabetes type 2, controlled Code(s): E11.9 - TYPE 2 DIABETES MELLITUS WITHOUT COMPLICATIONS (5) Hypertension Code(s): I10 - ESSENTIAL (PRIMARY) HYPERTENSION (6) HLD (hyperlipidemia) Code(s): E78.5 - HYPERLIPIDEMIA, UNSPECIFIED (7) BPH (benign prostatic hyperplasia) Code(s): N40.0 - BENIGN PROSTATIC HYPERPLASIA WITHOUT LOWER URINRY TRACT SYMP (8) COPD (chronic obstructive pulmonary disease) Code(s): J44.9 - CHRONIC OBSTRUCTIVE PULMONARY DISEASE, UNSPECIFIED (9) CVA (cerebral vascular accident) Code(s): I63.9 - CEREBRAL INFARCTION, UNSPECIFIED Qualifiers: CVA mechanism: unspecified Qualified Code(s): I63.9 - Cerebral infarction, unspecified plan patient needs collection to be drained vascular to evaluate the patient once vascular ses the patient then we will decide rest as per vascular
[2017-04-24] MEDS: TAMSULOSIN HCL 0.4 MG CAP.ER.24H (FP) PO SCH (16:56)
[2017-04-24] MEDS: metFORMIN HCL 500 MG TABLET (FP) PO SCH (16:56)
[2017-04-24] MEDS: INSULIN SLIDING SCALE (NOVOLOG) 1 VIAL SQ SCH ×2 (16:57→21:37)
[2017-04-24] MEDS: PIPERACILLIN/TAZOB 3.375 GM 50 ML IVPB SCH (17:23)
[2017-04-24 17:59] LABS: BASOPHIL 0.4 % (0-2.0); EOSINOPHIL 0.9 % (0-4.5); MCH 27.1 pg (25.7-33.7); MCHC 33.4 g/dl (32.0-35.9); MEAN CELL VOLUME 81.2 fl (80-96); MEAN PLT VOLUME 8.6 fl (7.5-11.1); NEUTROPHILS 84.2 % (42.8-82.8); PLATELET COUNT 259 K/MM3 (134-434); RDW 14.3 % (11.9-15.9)
[2017-04-24] MEDS ORDERED: ATORVASTATIN CA 40 MG TABLET (FP) PO SCH (22:00)
[2017-04-25] MEDS: ONDANSETRON 4 MG/2 ML VIAL IVPB PRN ×2 (00:12→05:55)
[2017-04-25] MEDS: PIPERACILLIN/TAZOB 3.375 GM 50 ML IVPB SCH ×2 (01:20→10:27)
[2017-04-25] MEDS: metFORMIN HCL 500 MG TABLET (FP) PO SCH (06:41)
[2017-04-25] MEDS: INSULIN SLIDING SCALE (NOVOLOG) 1 VIAL SQ SCH ×2 (06:42→11:52)
[2017-04-25] MEDS ORDERED: INSULIN (NOVOLOG) ASPART 100 UNITS/ML 10ML VIAL ONE ×2 (06:58→11:51)
[2017-04-25 08:03] LABS: BASOPHIL 0.3 % (0-2.0); EOSINOPHIL 0.2 % (0-4.5); MCH 27.5 pg (25.7-33.7); MCHC 33.9 g/dl (32.0-35.9); MEAN PLT VOLUME 8.3 fl (7.5-11.1); NEUTROPHILS 90.1 % (42.8-82.8); PLATELET COUNT 247 K/MM3 (134-434); RDW 14.3 % (11.9-15.9); WHITE BLOOD COUNT 11.7 K/mm3 (4.0-10.0)
[2017-04-25] MEDS: TAMSULOSIN HCL 0.4 MG CAP.ER.24H (FP) PO SCH (08:12)
--- NOTE | 2017-04-25 08:30 | CONSULT ---
Consult - History of Present Illness History of Present Illness: 71 year old man with history of TIA and left carotid stenosis evaluated in March 2017 here. The plan of care was for cardiology evaluation by Dr. Salazar and readmission once cleared for carotid endarterectomy. However, the patient was referred by his PMD, Dr. Mercedes, to [facility] where he underwent carotid endarterectomy last week. He was discharged and then developed worsening swelling in the neck with nauseas and vomiting. He now complains of pain. 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 (Carotid stenosis) Cardio/Vascular: Yes: Aneurysm, HTN, Hyperlipdemia Pulmonary: Yes: COPD Renal/: Yes: BPH, Other (PROSTATE BX) Musculoskeletal: Yes: Chronic low back pain Endocrine: Yes: Diabetes Mellitus - Alcohol/Substance Use Hx Alcohol Use: No History of Substance Use: reports: None - Smoking History Smoking history: Former smoker Have you smoked in the past 12 months: No If you are a former smoker, when did you quit?: 1979 - Social History ADL: Independent History of Recent Travel: No Home Medications - Allergies Allergies/Adverse Reactions: Allergies Allergy/AdvReac Type Severity Reaction Status Date / Time No Known Allergies Allergy Verified 04/23/17 08:13 - Home Medications Home Medications: Ambulatory Orders Aspirin Coated [Ecotrin -] 81 mg PO DAILY tablet.ec 11/05/16 Atorvastatin Ca [Lipitor] 40 mg PO HS tablet 11/05/16 Canagliflozin [Invokana] 100 mg PO DAILY 11/05/16 Hydrochlorothiazide [Hctz -] 12.5 mg PO DAILY cap 11/05/16 Insulin Degludec [Tresiba Flextouch U-100] 0.001 ml SQ DAILY 11/05/16 Clopidogrel Bisulfate [Plavix -] 75 mg PO DAILY tablet 03/28/17 Metformin HCl [Glucophage -] 500 mg PO BIDI tablet 03/28/17 Amlodipine Besylate [Norvasc -] 5 mg PO DAILY #0 tablet 03/29/17 Physical Exam Vital Signs: Vital Signs Temperature 98.6 F 04/25/17 07:36 Pulse Rate 78 04/25/17 07:36 Respiratory Rate 20 04/25/17 07:36 Blood Pressure 167/89 04/25/17 07:36 O2 Sat by Pulse Oximetry (%) 98 04/24/17 21:00 Constitutional: Yes: Anxious Eyes: Yes: EOM Intact Neck: Yes: Other (Left neck incision with dried blood. Tender swelling, non- pulsatile. No erythema.) Cardiovascular: Yes: Regular Rate and Rhythm Respiratory: Yes: Regular Gastrointestinal: Yes: Soft Extremities: Yes: WNL Labs: CBC, BMP 04/25/17 06:50 Imaging - Results Cat Scan: Image Reviewed (Subcutaneous collection of fluid and air.) Ultrasound: Report Reviewed Problem List - Problems (1) Neck abscess Assessment/Plan: Post-operative fluid collection 1 week after surgery is not uncommon, however, the presence of gross air suggests either an abscess or pharyngeal injury. As this patient underwent surgery elsewhere, he should be seen and cared for by his surgeon. As long as he is stable arrangements for transfer to [facility] should be made by his PMD, Code(s): L02.11 - CUTANEOUS ABSCESS OF NECK (2) H/O carotid endarterectomy Code(s): Z98.890 - OTHER SPECIFIED POSTPROCEDURAL STATES
[2017-04-25 08:32] LABS: ALBUMIN 3.2 g/dl (3.4-5.0); ALK PHOS 92 U/L (45-117); ANION GAP 11 (8-16); BILIRUBIN,TOTAL 0.9 mg/dL (0.2-1.0); CALCIUM 8.8 mg/dL (8.5-10.1); CO2 26 mmol/L (21-32); CREATININE 0.8 mg/dL (0.7-1.3); GLUCOSE,RANDOM 220 mg/dL (74-106); SGOT/AST 12 U/L (15-37); SGPT/ALT 19 U/L (12-78); TOT PROT 6.7 g/dl (6.4-8.2)
[2017-04-25] MEDS: HYDROCHLOROTHIAZIDE 12.5 MG CAPSULE (FP) PO SCH (09:31)
[2017-04-25] MEDS: ASPIRIN COATED 81 MG TABLET.EC PO SCH (09:32)
[2017-04-25] MEDS: CLOPIDOGREL BISULFATE 75 MG TABLET (FP) PO SCH (09:32)
[2017-04-25] MEDS: amLODIPine BESYLATE 5 MG TABLET (FP) PO SCH (09:32)
--- NOTE | 2017-04-25 09:39 | PN ---
Progress Note, Physician Chief Complaint: Left neck swelling History of Present Illness: 71M known from previous hospitalization for CVA and from office. At time of his CVA, he was found to have significant LICA stenosis and underwent L.CEA at [facility] last week, was discharged home Monday. He reports progressive pain and swelling of left side of neck over weekend and he returned to ER here where US and CT showed left sided fluid collection with presence of air: differential dx of seroma vs hematoma vs abscess. He is in no acute distress, mildly elevated WBC. Was seen by Vascular and ID- recommendation made to transfer back to [facility]. Was started on IV abx. On Cardiac ROS, denies chest pain, SOB, palps. Denies chills. Able to speak in full sentences, no stridor. PMH: DM and HTN - Current Medication List Current Medications: Active Medications Amlodipine Besylate (Norvasc -) 5 mg PO DAILY [facility] Last Admin: 04/25/17 09:32 Dose: 5 mg Aspirin (Ecotrin -) 81 mg PO DAILY [facility] Last Admin: 04/25/17 09:32 Dose: 81 mg Atorvastatin Calcium (Lipitor -) 40 mg PO HS [facility] Last Admin: 04/24/17 21:37 Dose: 40 mg Clopidogrel Bisulfate (Plavix -) 75 mg PO DAILY [facility] Last Admin: 04/25/17 09:32 Dose: 75 mg Hydrochlorothiazide (Hctz -) 12.5 mg PO DAILY [facility] Last Admin: 04/25/17 09:31 Dose: 12.5 mg Piperacillin Sod/Tazobactam Sod (Zosyn 3.375gm Ivpb (Pre-Docked)) 50 mls @ 100 mls/hr IVPB Q8H-IV MELISSA PRN Reason: Protocol Last Admin: 04/25/17 01:20 Dose: 100 mls/hr Insulin Aspart (Novolog Vial Sliding Scale -) 1 vial SQ ACHS [facility] PRN Reason: Protocol Last Admin: 04/25/17 06:42 Dose: 4 units Metformin HCl (Glucophage -) 500 mg PO BIDI [facility] Last Admin: 04/25/17 06:41 Dose: 500 mg Morphine Sulfate (Morphine Injection -) 4 mg IVPB Q4H PRN Last Admin: 04/24/17 21:43 Dose: 4 mg Non-Formulary Medication (Canagliflozin [Invokana]) 100 mg PO DAILY [facility] Last Admin: 04/24/17 10:27 Dose: Not Given Non-Formulary Medication (Insulin Degludec [Tresiba Flextouch U-100]) 0.001 ml SQ DAILY [facility] Last Admin: 04/24/17 10:33 Dose: Not Given Ondansetron HCl (Zofran Injection) 4 mg IVPB Q6H PRN PRN Reason: NAUSEA AND/OR VOMITING Last Admin: 04/25/17 05:55 Dose: 4 mg Tamsulosin HCl (Flomax -) 0.4 mg PO DAILY@0830 [facility] Last Admin: 04/25/17 08:12 Dose: 0.4 mg Vancomycin HCl (Vancomycin (Pre-Docked)) 1,000 mg IVPB BID [facility] PRN Reason: Protocol - Objective Vital Signs: Vital Signs Temperature 98.6 F 04/25/17 07:36 Pulse Rate 78 04/25/17 07:36 Respiratory Rate 20 04/25/17 07:36 Blood Pressure 167/89 04/25/17 07:36 O2 Sat by Pulse Oximetry (%) 98 04/24/17 21:00 Constitutional: Yes: No Distress HENT: Yes: Other (L.CEA. No obvious drainage. Edema along left side neck.) Cardiovascular: Yes: Regular Rate and Rhythm (no murmurs) Respiratory: Yes: CTA Bilaterally (no rales or wheezing.) Gastrointestinal: Yes: Soft (non-tender) Edema: No Neurological: Yes: Alert, Oriented Labs: CBC, BMP 04/25/17 06:50 04/25/17 06:50 INR, PTT INR 1.26 (0.82-1.09) H 04/23/17 09:45 - ....Imaging Cat Scan: Pending, Other (official report pending.) EKG: Image Reviewed (NSR 73bpm. Leftward axis. Borderline LVH.) Problem List - Problems (1) Carotid stenosis Code(s): I65.29 - OCCLUSION AND STENOSIS OF UNSPECIFIED CAROTID ARTERY (2) Fluid collection at surgical site Code(s): T88.8XXA - OTH COMPLICATIONS OF SURGICAL AND MEDICAL CARE, NEC, INIT Qualifiers: Encounter type: initial encounter Qualified Code(s): T88.8XXA - Other specified complications of surgical and medical care, not elsewhere classified, initial encounter (3) H/O carotid endarterectomy Code(s): Z98.890 - OTHER SPECIFIED POSTPROCEDURAL STATES (4) Leukocytosis (leucocytosis) Code(s): D72.829 - ELEVATED WHITE BLOOD CELL COUNT, UNSPECIFIED Qualifiers: Leukocytosis type: bandemia Qualified Code(s): D72.825 - Bandemia (5) Diabetes Code(s): E11.9 - TYPE 2 DIABETES MELLITUS WITHOUT COMPLICATIONS Qualifiers: Diabetes mellitus type: type 2 Diabetes mellitus complication status: without complication Assessment/Plan IMP: Fluid collection at surgical site s/p recent L.CEA: seroma vs hematoma vs abscess DM s/p CVA REC: Will transfer to [facility] for review of CT and further management of post op fluid collection. D/W Dr. Zuniga who has accepted patient for transfer. Patient agrees for transfer.
[2017-04-25] MEDS ORDERED: amLODIPine BESYLATE 5 MG TABLET (FP) PO ONE (09:49)
[2017-04-25] MEDS: INSULIN DEGLUDEC SQ SCH (09:59)
[2017-04-25] MEDS ORDERED: ACETAMINOPHEN 325 MG TABLET (FP) PO PRN (13:16)
[2017-04-25] MEDS ORDERED: POLYETHYLENE GLYCOL 3350 119 GM BTL PO SCH (13:30)
[2017-04-25] MEDS ORDERED: DOCUSATE SODIUM 100 MG CAPSULE (FP) PO SCH (13:30)
--- NOTE | 2017-04-25 13:37 | PN ---
Progress Note, Physician History of Present Illness: patient stable no new issues vascular note noted plan to transfer patient back to the place where he was operated - Current Medication List Current Medications: Active Medications Acetaminophen (Tylenol -) 650 mg PO Q6H PRN PRN Reason: FEVER OR PAIN Aspirin (Ecotrin -) 81 mg PO DAILY [facility] Last Admin: 04/25/17 09:32 Dose: 81 mg Atorvastatin Calcium (Lipitor -) 40 mg PO HS [facility] Last Admin: 04/24/17 21:37 Dose: 40 mg Clopidogrel Bisulfate (Plavix -) 75 mg PO DAILY [facility] Last Admin: 04/25/17 09:32 Dose: 75 mg Docusate Sodium (Colace -) 300 mg PO HS [facility] Hydrochlorothiazide (Hctz -) 12.5 mg PO DAILY [facility] Last Admin: 04/25/17 09:31 Dose: 12.5 mg Piperacillin Sod/Tazobactam Sod (Zosyn 3.375gm Ivpb (Pre-Docked)) 50 mls @ 100 mls/hr IVPB Q8H-IV MELISSA PRN Reason: Protocol Last Admin: 04/25/17 10:27 Dose: 100 mls/hr Insulin Aspart (Novolog Vial Sliding Scale -) 1 vial SQ ACHS MELISSA PRN Reason: Protocol Last Admin: 04/25/17 11:52 Dose: 4 units Metformin HCl (Glucophage -) 500 mg PO BIDI [facility] Last Admin: 04/25/17 06:41 Dose: 500 mg Morphine Sulfate (Morphine Injection -) 4 mg IVPB Q4H PRN Last Admin: 04/24/17 21:43 Dose: 4 mg Non-Formulary Medication (Canagliflozin [Invokana]) 100 mg PO DAILY [facility] Last Admin: 04/24/17 10:27 Dose: Not Given Non-Formulary Medication (Insulin Degludec [Tresiba Flextouch U-100]) 0.001 ml SQ DAILY [facility] Last Admin: 04/25/17 09:59 Dose: Not Given Ondansetron HCl (Zofran Injection) 4 mg IVPB Q6H PRN PRN Reason: NAUSEA AND/OR VOMITING Last Admin: 04/25/17 05:55 Dose: 4 mg Polyethylene Glycol (Miralax (For Daily Use) -) 17 gm PO DAILY [facility] Tamsulosin HCl (Flomax -) 0.4 mg PO DAILY@0830 [facility] Last Admin: 04/25/17 08:12 Dose: 0.4 mg Vancomycin HCl (Vancomycin (Pre-Docked)) 1,000 mg IVPB BID [facility] PRN Reason: Protocol - Objective Vital Signs: Vital Signs Temperature 98.4 F 04/25/17 10:44 Pulse Rate 85 04/25/17 10:44 Respiratory Rate 20 04/25/17 10:44 Blood Pressure 161/97 04/25/17 10:44 O2 Sat by Pulse Oximetry (%) 100 04/25/17 09:00 Constitutional: Yes: Calm, Mild Distress HENT: Yes: Other (neck swelling has not decreased) Cardiovascular: Yes: Regular Rate and Rhythm Respiratory: Yes: Regular, CTA Bilaterally Gastrointestinal: Yes: Normal Bowel Sounds, Soft Musculoskeletal: Yes: WNL Extremities: Yes: WNL Neurological: Yes: Alert, Oriented Psychiatric: Yes: Alert, Oriented Labs: CBC, BMP 04/25/17 06:50 04/25/17 06:50 INR, PTT INR 1.26 (0.82-1.09) H 04/23/17 09:45 - ....Imaging Cat Scan: Report Reviewed, Image Reviewed Assessment/Plan - Problems (1) Carotid stenosis Code(s): I65.29 - OCCLUSION AND STENOSIS OF UNSPECIFIED CAROTID ARTERY (2) Fluid collection at surgical site Code(s): T88.8XXA - OTH COMPLICATIONS OF SURGICAL AND MEDICAL CARE, NEC, INIT Qualifiers: Encounter type: initial encounter Qualified Code(s): T88.8XXA - Other specified complications of surgical and medical care, not elsewhere classified, initial encounter (3) Vomiting with nausea, not intractable Code(s): R11.2 - NAUSEA WITH VOMITING, UNSPECIFIED Qualifiers: Vomiting type: unspecified Qualified Code(s): R11.2 - Nausea with vomiting, unspecified (4) Diabetes type 2, controlled Code(s): E11.9 - TYPE 2 DIABETES MELLITUS WITHOUT COMPLICATIONS (5) Hypertension Code(s): I10 - ESSENTIAL (PRIMARY) HYPERTENSION (6) HLD (hyperlipidemia) Code(s): E78.5 - HYPERLIPIDEMIA, UNSPECIFIED (7) BPH (benign prostatic hyperplasia) Code(s): N40.0 - BENIGN PROSTATIC HYPERPLASIA WITHOUT LOWER URINRY TRACT SYMP (8) COPD (chronic obstructive pulmonary disease) Code(s): J44.9 - CHRONIC OBSTRUCTIVE PULMONARY DISEASE, UNSPECIFIED (9) CVA (cerebral vascular accident) Code(s): I63.9 - CEREBRAL INFARCTION, UNSPECIFIED Qualifiers: CVA mechanism: unspecified Qualified Code(s): I63.9 - Cerebral infarction, unspecified plan plan is patient needs surgery patient to be transferred to the center where he had surgery rest as per primary
[2017-04-25 14:37] VITALS: BP 126/67; PULSE 86; TEMP 99
[2017-04-25] MEDS: VANCOMYCIN 1 GRAM (PRE-DOCKED) 1,000 MG/250 ML BAG IVPB SCH ×2 (15:36→15:37)
[2017-04-25] MEDS: PATIENT'S OWN MEDICATION (NON-FORMULARY) (Canagliflozin [Invokana] 100 MG) PO SCH (15:37)
== END 2017-04-25 15:35 | disposition short-term general hospital (02) | DRG 920 ==
LOC: JER 08:11 → JERBED 15:32 → UNDOADMIN 18:50 → J8W 19:26
PROVIDERS: ADMIT Internal Medicine; ATTEND Internal Medicine
DX: I97.648 Postprocedural seroma of a circulatory system organ or structure following other circulatory system procedure (principal); L02.11 Cutaneous abscess of neck; I65.22 Occlusion and stenosis of left carotid artery; I10 Essential (primary) hypertension; R11.2 Nausea with vomiting, unspecified; E78.5 Hyperlipidemia, unspecified; J44.9 Chronic obstructive pulmonary disease, unspecified; N40.0 Benign prostatic hyperplasia without lower urinary tract symptoms; M54.5 Low back pain; D72.829 Elevated white blood cell count, unspecified; E11.9 Type 2 diabetes mellitus without complications; Z87.891 Personal history of nicotine dependence; Z86.73 Personal history of transient ischemic attack (TIA), and cerebral infarction without residual deficits; Y83.8 Other surgical procedures as the cause of abnormal reaction of the patient, or of later complication, without mention of misadventure at the time of the procedure; Y83.9 Surgical procedure, unspecified as the cause of abnormal reaction of the patient, or of later complication, without mention of misadventure at the time of the procedure
CPT/HCPCS: 36415; 70490-TC; 71010-TC; 80053; 82550; 83605; 84484; 85025; 85610; 93005; 93010; 93880-TC; 99284-25

== ENCOUNTER → 2017-05-06 | Emergency (ER) | payer OTHER ==
[~2017-05-06] MED LIST: INSULIN (NOVOLOG) ASPART 100 UNITS/ML 10ML VIAL SQ ONE; INSULIN REGULAR HUMAN 100 UNITS/ML *VIAL ONE
[2017-05-06 11:19] VITALS: BMI 26.3
--- NOTE | 2017-05-06 11:29 | PDOC ---
History of Present Illness - General Chief Complaint: Weakness Stated Complaint: PAIN History Source: Patient Exam Limitations: Language Barrier - History of Present Illness Initial Comments: 05/06/17 11:30 Pt is a 71 y/o male with PMH significant for HTN, HLD, diabetes, COPD, CVA (03/25, affecting R arm transiently) and carotid stenosis. This March pt underwent L carotid endartectomy at [facility]. He then presented to [facility] ED 04/15 with pain and mass at surgical site. CT neck showed large fluid/air collection in the soft tissue, displacing trachea to the r side. Patient was transferred to [facility], where he stayed for several days but did not receive further surgical intervention. he was discharged 4 days ago and upon return home noticed exertional sob, nausea, lightheadedness, h/a, LUE weakness, burning pain and tremor. He states that there is less swelling and pain at surgical site. He denies numbness, chest pain, cough, LE edema, abd pain, diarrhea, constipation, dysuria. 05/06/17 13:53 Past History - Travel Traveled outside of the country in the last 30 days: No Close contact w/someone who was outside of country & ill: No - Past Medical History Allergies/Adverse Reactions: Allergies Allergy/AdvReac Type Severity Reaction Status Date / Time No Known Allergies Allergy Verified 05/06/17 11:43 Home Medications: Ambulatory Orders Aspirin Coated [Ecotrin -] 81 mg PO DAILY tablet.ec 11/05/16 Atorvastatin Ca [Lipitor] 40 mg PO HS tablet 11/05/16 Canagliflozin [Invokana] 100 mg PO DAILY 11/05/16 Hydrochlorothiazide [Hctz -] 12.5 mg PO DAILY cap 11/05/16 Clopidogrel Bisulfate [Plavix -] 75 mg PO DAILY tablet 03/28/17 Metformin HCl [Glucophage -] 500 mg PO BIDI tablet 03/28/17 Amlodipine Besylate [Norvasc -] 5 mg PO DAILY #0 tablet 03/29/17 Cancer: No Dementia: Yes Diabetes: Yes HTN: Yes Hypercholesterolemia: Yes - Immunization History Immunization Up to Date: Yes - Psycho/Social/Smoking Cessation Hx Anxiety: No Suicidal Ideation: No Smoking History: Former smoker Have you smoked in the past 12 months: No If you are a former smoker, when did you quit?: 30 years ago Information on smoking cessation initiated: No Hx Alcohol Use: No Drug/Substance Use Hx: No Substance Use Type: None Hx Substance Use Treatment: No Review of Systems - Review of Systems Able to Perform ROS?: Yes Is the patient limited Syriac proficient: No Constitutional: Yes: Malaise. No: Chills, Fever, Night Sweats HEENTM: No: Throat Pain, Throat Swelling, Difficulty Swallowing Respiratory: Yes: SOB with Exertion. No: Cough, Orthopnea, Shortness of Breath , Stridor, Wheezing, Productive cough, Hemoptysis Cardiac (ROS): Yes: Lightheadedness. No: Chest Pain, Edema ABD/GI: Yes: Nausea. No: Abdominal Distended, Difficulty Swallowing, Rectal Bleeding, Vomiting, Tarry Stools : No: Burning, Dysuria Musculoskeletal: No: Neck Pain Integumentary: No: Pruritus, Rash Neurological: Yes: Headache, Tremors (l arm). No: Numbness, Seizure Psychiatric: No: Anxiety Endocrine: No: Unexplained Weight Gain, Unexplained Weight Loss Hematologic/Lymphatic: No: Anemia, Blood Clots, Easy Bleeding, Easy Bruising All Other Systems: Reviewed and Negative *Physical Exam - Vital Signs Last Vital Signs Temp Pulse Resp BP Pulse Ox 82 18 142/86 99 05/06/17 11:17 05/06/17 11:17 05/06/17 11:17 05/06/17 11:17 - Physical Exam Comments: 05/06/17 14:07 GENEREAL: AAOX3, NAD HEENT: R PUPIL DEFORMED (MPH CATARRACT ROS). EOMI, L NECK MASS AT SURGICAL SITE , NO ERYTHEMA R CELLULITIS, MODERATELY TENDER. NO POSTERIOR NECK PAIN. NORMOCEPHALIC, ATRAUMATIC CV: RRR S1S2 PULM: CTA B/L, POOR INSPIRATORY EFFORT GI:SOFT, NONTENDER, NONDISTENDED, NO MASS NEURO: CN INTACT, SENSATION INTACT, STRENGTH 4-/5 IN ALL EXTREMITIES. PROPRIECEPTION INTACT IN ue B/L. L HAND MACRO INTENTION TREMOR. MUSCULOSKELETA: NO PERIPHERAL EDEMA, NO CALF TENDERNESS 05/06/17 15:23 ED Treatment Course - LABORATORY CBC & Chemistry Diagram: 05/06/17 12:35 05/06/17 12:35 Medical Decision Making - Medical Decision Making 05/06/17 14:11 patient presents with a variety of complaints. sob is likely some post op atelectasis, hap less likely given lack of other resp. symptoms CXR is unremarkable , cbc unremarkable light headedness may be due to lyte abnormalities or dehydration CMP unremarkable L arm burning pain/tremor is more likely a peripheral nerve/brachial plexus injury, possible nerve hyperextension during hospitalization. will repeat CT head/neck (no acute intractaneal pathology, neck collection decreased in size) and dupplex L hand (negative for dvt) labs unremarkable other than high glucose 330, patient given insulin 05/06/17 15:36 05/06/17 15:38 05/06/17 16:15 UA negative SOB is likely due to mild atelectasis s/p hospitalization, no evidence if PNA or congestion. Recommend Chest PT LUE burning is likely due to brachial plexus positional mild injury, recommend PCP f/u and Physical therapy 05/06/17 16:27 *DC/Admit/Observation/Transfer Diagnosis at time of Disposition: Weakness, Left arm pain - Discharge Dispostion Disposition: HOME Condition at time of disposition: Good Admit: No - Patient Instructions Additional Instructions: your shortness of breath is likely due to lung deconditioning after hospitalization, the chest x ray is clear. We recommend breathing exercises Your left arm burning is likely due to neck or shoulder nerve positional mild injury, recommend physical therapy and a follow up with your family doctor
--- NOTE | 2017-05-06 12:28 | PDOC ---
Attending Attestation - Resident Resident Name: JackieMitzy - ED Attending Attestation I have performed the following: I have examined & evaluated the patient, The case was reviewed & discussed with the resident, I agree w/resident's findings & plan - HPI HPI: 05/06/17 12:28 72y [place] hx of htn, hl, dm, copd, tia, carotid stenosis s/p recent L endarectomy c /b hematoma vs seroma approx 10 days ago, seen in ED here and transferred to [facility] for management (no surgical intervention) and seem to be resolving spontaneously and discharged 4 days ago - since then pt has endorsed feeling generally weak, also notes that he has had some pain in volar aspect of his L forearm since discharge. Pt does endorsed feeling generally weak/fatigued, lightheadedness, since his original operation. Pt also endorses feeling increased tremor of his arm. No associated fever/chills, cp, cough, cp, palpitations. On exam pt strength symmetric throughout, noted mild intension tremor. lunngs clear. small mass noted in L neck. no acute distress otherwise. suspect his arm pain may be secondary to infiltrated IV as there is a resolving hematoma in his arm there is no weakness to suggested an acut eintracranial process. will also rule out anemia, metabolic dernagement as a cause of his weakness. will ck for occult infeciton - Physicial Exam PE: 05/07/17 07:53 see above - Medical Decision Making 05/07/17 07:53 see above Heart Score/ECG Review - ECG Impressions Comment:: 05/06/17 15:06 Twelve-lead EKG was performed and reviewed by me. There is normal sinus rhythm with a normal rate. Rate 76 The axis is normal. The intervals are normal. There is normal R wave progression There are no ST or T wave abnormalities. Impression: Normal twelve-lead EKG
[2017-05-06 12:45] LABS: BASOPHIL 1.2 % (0-2.0); EOSINOPHIL 4.4 % (0-4.5); MCH 27.3 pg (25.7-33.7); MCHC 33.3 g/dl (32.0-35.9); MEAN CELL VOLUME 81.9 fl (80-96); MEAN PLT VOLUME 8.4 fl (7.5-11.1); NEUTROPHILS 75.4 % (42.8-82.8); PLATELET COUNT 341 K/MM3 (134-434); RDW 14.7 % (11.9-15.9); WHITE BLOOD COUNT 7.3 K/mm3 (4.0-10.0)
[2017-05-06 13:04] LABS: ALBUMIN 3.9 g/dl (3.4-5.0); ALK PHOS 93 U/L (45-117); ANION GAP 11 (8-16); BILIRUBIN,TOTAL 0.3 mg/dL (0.2-1.0); CO2 22 mmol/L (21-32); COCKROFT - GAULT 67.35; CREATININE 1.1 mg/dL (0.7-1.3); MAGNESIUM 2.1 mg/dL (1.8-2.4); SGOT/AST 11 U/L (15-37); SGPT/ALT 30 U/L (12-78); TOT PROT 7.1 g/dl (6.4-8.2)
[2017-05-06 13:10] LABS: GLUCOSE,RANDOM 330 mg/dL (74-106)
[2017-05-06 15:30] LABS: URINE APPEARANCE CLEAR; URINE BILIRUBIN NEGATIVE (NEGATIVE); URINE BLOOD NEGATIVE (NEGATIVE); URINE COLOR STRAW; URINE GLUCOSE (UA) 3+ (NEGATIVE); URINE KETONE NEGATIVE (NEGATIVE); URINE LEUK ESTERASE NEGATIVE (NEGATIVE); URINE NITRITE NEGATIVE (NEGATIVE); URINE PROTEIN NEGATIVE (NEGATIVE); URINE UROBILINOGEN NEGATIVE E.U./dl (0.2-1.0)
[2017-05-06 18:28] VITALS: BP 138/80; PULSE 78
--- NOTE | 2017-05-09 10:55 | EKG ---
Test Reason : Blood Pressure : / mmHG Vent. Rate : 076 BPM Atrial Rate : 076 BPM P-R Int : 174 ms QRS Dur : 076 ms QT Int : 380 ms P-R-T Axes : 062 -29 016 degrees QTc Int : 427 ms NORMAL SINUS RHYTHM NORMAL ECG WHEN COMPARED WITH ECG OF 23-APR-2017 09:28, NO SIGNIFICANT CHANGE WAS FOUND Confirmed by RYNE BAKER MD ([id number]) on 05/09/2017 10:55:19 AM Referred By: Confirmed By:RYNE BAKER MD
== END | disposition home or self-care (01) ==
LOC: JER 11:07
PROC: 3E013VG Introduction of Insulin into Subcutaneous Tissue, Percutaneous Approach (ICD-10-PCS; principal; 2017-05-06)
DX: R53.1 Weakness (principal); M79.602 Pain in left arm; I10 Essential (primary) hypertension; E78.5 Hyperlipidemia, unspecified; E11.9 Type 2 diabetes mellitus without complications; J44.9 Chronic obstructive pulmonary disease, unspecified; I65.29 Occlusion and stenosis of unspecified carotid artery; Z79.82 Long term (current) use of aspirin; Z79.84 Long term (current) use of oral hypoglycemic drugs; Z87.891 Personal history of nicotine dependence
CPT/HCPCS: 36415; 70450-TC; 70490-TC; 71010-TC; 80053; 81003; 83735; 85025; 93005; 93010; 93971; 96372; 99282-25

== ENCOUNTER 2017-11-28 17:01 | Emergency (ER) | payer OTHER ==
--- NOTE | 2017-11-28 17:27 | PDOC ---
Rapid Medical Evaluation Time Seen by Provider: 11/28/17 17:17 Medical Evaluation: Allergies Allergy/AdvReac Type Severity Reaction Status Date / Time No Known Allergies Allergy Verified 10/04/17 15:17 11/28/17 17:25 I have performed a brief in-person evaluation of this patient. The patient presents with a chief complaint of: Cough w/ fever and body aches since yesterday. H/o DM, HTN Pertinent physical exam findings:Febrile to 102 F and tachy to 102, exam unremarkable otherwise I have ordered the following:influenza/CXR/tylenol The patient will proceed to the ED for further evaluation. 11/28/17 17:30
[2017-11-28] MEDS ORDERED: ACETAMINOPHEN 325 MG TABLET (FP) PO ONE (17:30)
[2017-11-28 17:31] VITALS: PULSE 102; BMI 26.6
[2017-11-28 17:32] VITALS: BP 159/107
--- NOTE | 2017-11-28 18:33 | PDOC ---
History of Present Illness - General Chief Complaint: Cold Symptoms Stated Complaint: COLD SYMPTOMS Time Seen by Provider: 11/28/17 17:17 History Source: Patient Exam Limitations: No Limitations - History of Present Illness Initial Comments: 11/28/17 18:28 This is 19-year-old man with past medical history of hypertension and diabetes presents emergency Department with 3 days of fever, body aches, sore throat, rhinorrhea. Patient states he tried taking twrn-efm-[id number] medication such as Tylenol and NyQuil with minimal relief. Patient denies headaches, shortness of breath, chest pain, abdominal pain, nausea, vomiting, dizziness. PMD: Virgil Mercedes PMH: Hypertension, diabetes PSH: Denies Past History - Past Medical History Allergies/Adverse Reactions: Allergies Allergy/AdvReac Type Severity Reaction Status Date / Time No Known Allergies Allergy Verified 11/28/17 17:25 Home Medications: Ambulatory Orders Metformin HCl [Glucophage -] 500 mg PO BIDI tablet 03/28/17 Amlodipine Besylate [Norvasc -] 5 mg PO DAILY #0 tablet 03/29/17 Ondansetron [Zofran Odt -] 4 mg SL TID PRN #10 od.tablet 10/04/17 Cancer: No COPD: No DVT: No Dementia: Yes Diabetes: Yes HTN: Yes Hypercholesterolemia: Yes - Immunization History Immunization Up to Date: Yes - Suicide/Smoking/Psychosocial Hx Smoking History: Never smoked Have you smoked in the past 12 months: No If you are a former smoker, when did you quit?: 30 years ago Information on smoking cessation initiated: No Hx Alcohol Use: No Drug/Substance Use Hx: No Substance Use Type: None Hx Substance Use Treatment: No Review of Systems - Review of Systems Able to Perform ROS?: Yes Is the patient limited Georgian proficient: No Constitutional: Yes: See HPI HEENTM: Yes: See HPI Respiratory: Yes: See HPI Cardiac (ROS): No: Symptoms Reported ABD/GI: No: Symptoms Reported : No: Symptoms Reported Musculoskeletal: Yes: See HPI Integumentary: No: Symptoms Reported Neurological: No: Symptoms reported Endocrine: No: Symptoms Reported Hematologic/Lymphatic: No: Symptoms Reported *Physical Exam - Vital Signs Last Vital Signs Temp Pulse Resp BP Pulse Ox 102.2 F H 102 H 18 159/107 100 11/28/17 17:25 11/28/17 17:25 11/28/17 17:25 11/28/17 17:25 11/28/17 17:25 - Physical Exam General Appearance: Yes: Appropriately Dressed. No: Apparent Distress HEENT: positive: Pharyngeal Erythema Neck: positive: Trachea midline, Supple Respiratory/Chest: positive: Lungs Clear, Normal Breath Sounds. negative: Respiratory Distress, Accessory Muscle Use Cardiovascular: positive: Regular Rhythm, Regular Rate. negative: Murmur Gastrointestinal/Abdominal: positive: Normal Bowel Sounds, Soft. negative: Tender Musculoskeletal: positive: Normal Inspection. negative: CVA Tenderness Extremity: positive: Normal Capillary Refill, Normal Inspection Integumentary: positive: Normal Color, Dry, Warm Neurologic: positive: dough mixer helper II-XII NML intact, Fully Oriented, Alert, Normal Mood/ Affect, Normal Response, Motor Strength 5/5 Medical Decision Making - Medical Decision Making 11/28/17 18:30 A/P: This is 19-year-old man with past medical history of hypertension and diabetes presents emergency Department with 3 days of fever, body aches, sore throat, rhinorrhea. Patient states he tried taking rrzv-gqw-nvpetzq medication such as Tylenol and NyQuil with minimal relief. Patient denies headaches, shortness of breath, chest pain, abdominal pain, nausea, vomiting, dizziness. Vital signs notable for fever and tachycardia. Examination of the oropharynx reveals pharyngeal erythema. Tonsils clear with no exudates or erythema. No cervical lymphadenopathy present. Lungs clear to auscultation bilaterally. Rhythm tachycardic but regular. S1 and S2 present. No murmurs, rub or gallop noted. Abdomen soft nontender nondistended. Extremities pink with good cap refill. Differential diagnoses includes viral illness versus pneumonia. Tylenol given for fever in [facility]. Flu swab collected and currently have results pending. Patient is still for chest x-ray. I will follow up with all testing has been completed. 11/28/17 18:34 Influenza testing came back as positive for influenza A and negative for influenza B. 11/28/17 19:03 X-rays read by me: Cardiac silhouette is within normal limits. Costal margins clear. Visualized osseous structures intact. No infiltrates or consolidations are seen. I will discharge the patient withstrict return precautions. *DC/Admit/Observation/Transfer Diagnosis at time of Disposition: Influenza A - Discharge Dispostion Disposition: HOME Condition at time of disposition: Stable Admit: No - Referrals Referrals: Virgil Mercedes MD [Primary Care Provider] - - Patient Instructions Additional Instructions: Rest, drink lots of fluids: Teas, water, soups, Pedialyte Saltwater gargles Steamy showers/seem to face break up mucus Avoid contact with others until fevers and cough resolved Lots of handwashing and good hygiene Continue voge-uuh-iddkrsm medications for symptomatic relief Tylenol or Motrin for fever and pain Followup with private physician in one to 2 days as needed Return to emergency department for worsened symptoms, fevers, dehydration - Post Discharge Activity
[2017-11-28] MEDS ORDERED: ACETAMINOPHEN 325 MG TABLET (FP) ONE (18:46)
[2017-11-28 19:08] VITALS: TEMP 98.9
--- NOTE | 2017-11-30 12:31 | EKG ---
Test Reason : Blood Pressure : / mmHG Vent. Rate : 099 BPM Atrial Rate : 099 BPM P-R Int : 150 ms QRS Dur : 084 ms QT Int : 334 ms P-R-T Axes : 059 -31 043 degrees QTc Int : 428 ms POOR DATA QUALITY, INTERPRETATION MAY BE ADVERSELY AFFECTED NORMAL SINUS RHYTHM POSSIBLE LEFT ATRIAL ENLARGEMENT LEFT AXIS DEVIATION POSSIBLE ANTERIOR INFARCT (CITED ON OR BEFORE 04-OCT-2017) ABNORMAL ECG WHEN COMPARED WITH ECG OF 04-OCT-2017 16:01, NONSPECIFIC T WAVE ABNORMALITY NOW EVIDENT IN LATERAL LEADS Confirmed by STEPHANIE GARCIA MD ([id number]) on 11/30/2017 12:30:48 PM Referred By: Confirmed By:STEPHANIE GARCIA MD
== END 2017-11-28 19:13 | disposition home or self-care (01) ==
LOC: JERFT 17:01
DX: J10.1 Influenza due to other identified influenza virus with other respiratory manifestations (principal); I10 Essential (primary) hypertension; E11.9 Type 2 diabetes mellitus without complications; Z79.84 Long term (current) use of oral hypoglycemic drugs
CPT/HCPCS: 71046-TC; 87804; 93005; 93010; 99281-25

== ENCOUNTER 2018-02-15 10:56 | Emergency (ER) | payer OTHER ==
[2018-02-15 11:13] VITALS: BMI 24.7
--- NOTE | 2018-02-15 11:45 | PDOC ---
History of Present Illness - General Chief Complaint: Pain, Acute Stated Complaint: PAIN Time Seen by Provider: 02/15/18 11:34 History Source: Patient - History of Present Illness Initial Comments: 02/15/18 11:58 72 y.o. male with a PMH CAD (s/p Carotid endartectomy), DM, presents to ED c/o 3 days of abdominal pain. Patient states the pain is sharp, constant, localized to his RLQ with no radiation. Patient denies any associated fevers/ chills, nausea/vomiting, diarrhea/constipation or scrotal/penile pain. Patient' s last BM was yesterday evening and was consistent with his regular bowel movement. Patient has been tolerating PO intake. Patient denies chest pain, shortness of breath, recent travel or sick contacts. NKDA Surgical: Carotid endarectomy Social: denies cigarettes, weekly alcohol, denies recreational drugs PMD: Dr. Virgil Mercedes 02/15/18 13:12 Past History - Past Medical History Allergies/Adverse Reactions: Allergies Allergy/AdvReac Type Severity Reaction Status Date / Time No Known Allergies Allergy Verified 02/15/18 11:10 Home Medications: Ambulatory Orders metFORMIN HCL [Glucophage -] 500 mg PO BIDI tablet 03/28/17 Amlodipine Besylate [Norvasc -] 5 mg PO DAILY #0 tablet 03/29/17 Ondansetron [Zofran Odt -] 4 mg SL TID PRN #10 od.tablet 10/04/17 Oxycodone HCl/Acetaminophen [Percocet 5-325 mg Tablet -] 1 combo PO Q6H PRN #14 tablet MDD 4 02/15/18 Cancer: No COPD: No DVT: No Dementia: Yes Diabetes: Yes HTN: Yes Hypercholesterolemia: Yes - Immunization History Immunization Up to Date: Yes - Suicide/Smoking/Psychosocial Hx Smoking History: Former smoker Have you smoked in the past 12 months: No If you are a former smoker, when did you quit?: 30 years ago Information on smoking cessation initiated: No Hx Alcohol Use: No Drug/Substance Use Hx: No Substance Use Type: None Hx Substance Use Treatment: No Review of Systems - Review of Systems Constitutional: No: Chills, Fever HEENTM: No: Recent change in vision Respiratory: No: Cough, Shortness of Breath Cardiac (ROS): No: Chest Pain ABD/GI: No: Constipated, Diarrhea, Nausea, Vomiting : No: Burning, Dysuria *Physical Exam - Vital Signs Last Vital Signs Temp Pulse Resp BP Pulse Ox 97.6 F 74 19 139/83 97 02/15/18 11:10 02/15/18 11:10 02/15/18 11:10 02/15/18 11:10 02/15/18 11:10 - Physical Exam General Appearance: Yes: Nourished, Appropriately Dressed HEENT: positive: EOMI, GUDELIA Neck: positive: Trachea midline, Supple Respiratory/Chest: positive: Lungs Clear Cardiovascular: positive: S1, S2. negative: Edema, JVD Gastrointestinal/Abdominal: positive: Normal Bowel Sounds, Soft Male Genitalia: positive: other ((+) suprapubic tenderness) Musculoskeletal: negative: CVA Tenderness (R), CVA Tenderness (L) Extremity: positive: Normal Capillary Refill, Normal Inspection Integumentary: positive: Normal Color, Dry, Warm Neurologic: positive: Fully Oriented, Alert ED Treatment Course - LABORATORY CBC & Chemistry Diagram: 02/15/18 12:35 02/15/18 12:35 Medical Decision Making - Medical Decision Making 02/15/18 12:56 72 y.o. male presents with 3 day h/o worsening abdominal pain. Physical exam significant for suprapubic TTP. DDx: UTI/Prostatitis. Will check basic labs and urine. Possible U/S or CT pending results. 02/15/18 13:07 Labs significant for hyperglycemia -- patient did not take Metformin yesterday. 02/15/18 17:28 CT abdomen showed no appendicitis, enlarged prostate. Patient re-evaluated - continues to have RLQ/Suprpubic TTP. Unremarkable testicular exam. No palpable hernia. Will give PO Percocet. 02/15/18 18:56 Pain improved with Percocet. Patient ambulatory, tolerating PO intake and improved. Clinical picture and labs/imagining c/w abominal muscle strain. Will discharge patient home with return precautions, PO pain medication and instruction to f/u with PMD in the next 48 hours. *DC/Admit/Observation/Transfer Diagnosis at time of Disposition: Abdominal pain - Discharge Dispostion Disposition: HOME Condition at time of disposition: Good Admit: No - Prescriptions Prescriptions: Oxycodone HCl/Acetaminophen [Percocet 5-325 mg Tablet -] 1 combo PO Q6H PRN #14 tablet MDD 4 PRN Reason: Pain - Referrals Referrals: Virgil Mercedes MD [Primary Care Provider] - - Patient Instructions Printed Discharge Instructions: DI for Abdominal Pain-Adult Additional Instructions: You were evaluated today for abdominal pain. All of your labs showed no concerning findings. Please make a follow-up appointment with your primary care doctor in the next 48 hours. Return to the Emergency Department for any new/worsening/concerning syp - Post Discharge Activity
--- NOTE | 2018-02-15 12:03 | PDOC ---
Attending Attestation - Resident Resident Name: Fabiola Penaica - ED Attending Attestation I have performed the following: I have examined & evaluated the patient, The case was reviewed & discussed with the resident, I agree w/resident's findings & plan, Exceptions are as noted - HPI HPI: 02/15/18 12:57 72y M presents with 3 days of abdominal pain described as sharp, nonradiating, located in the RLQ no associated fever/chills, diarrhea, melena, dysuria, hematuria no associated cp, sob, back pain, numnbess/tingling/weakness abd exam noted for noted for mild suprapubic to RLQ tenderness no hernias appreciated ddx uti, appendicitis plan - labs, ua morphine for pain - Physicial Exam PE: 02/17/18 07:34 see above - Medical Decision Making 02/15/18 17:28 The patient's blood work was reviewed Noted for hyperglycemia The patient's CT abdomen does not reveal any acute causes of his pain Patient was reexamined has had a mild persistent focal tenderness to the right lower quadrant. There is no hernia palpable, the patient's testicular exam was normal without any tenderness at the scrotum/testicles will give pt a perocet here but will dc the pt with pmd if he is feeling better with return precautions. Heart Score/ECG Review - ECG Impressions Comment:: 02/15/18 17:07 Twelve-lead EKG was performed and reviewed by me. There is normal sinus rhythm with a rate of 57 T wave flattening in the lateral leads
[2018-02-15 12:47] LABS: BASO % 0.7 % (0-2.0); EOS % 4.8 % (0-4.5); LYMPH % 13.3 % (8-40); MCH 27.9 pg (25.7-33.7); MCHC 34.2 g/dl (32.0-35.9); MEAN CELL VOLUME 81.7 fl (80-96); MEAN PLT VOLUME 9.1 fl (7.5-11.1); MONO % 6.9 % (3.8-10.2); NEUT % 74.3 % (42.8-82.8); PLATELET COUNT 220 K/MM3 (134-434); RBC 5.02 M/mm3 (4.00-5.60); RDW 13.9 % (11.9-15.9); WHITE BLOOD COUNT 5.9 K/mm3 (4.0-10.0)
[2018-02-15 13:11] LABS: ALBUMIN 4.2 g/dl (3.4-5.0); ALK PHOS 74 U/L (45-117); ANION GAP 12 (8-16); BILIRUBIN,TOTAL 0.5 mg/dL (0.2-1.0); BLOOD UREA NITROGEN 18 mg/dL (7-18); CALCIUM 8.9 mg/dL (8.5-10.1); CHLORIDE 97 mmol/L (98-107); CO2 25 mmol/L (21-32); CREATININE 0.8 mg/dL (0.7-1.3); LIPASE 132 U/L (73-393); POTASSIUM 3.8 mmol/L (3.5-5.1); SGOT/AST 9 U/L (15-37); SGPT/ALT 28 U/L (12-78); SODIUM 134 mmol/L (136-145); TOT PROT 7.4 g/dl (6.4-8.2)
[2018-02-15 13:13] LABS: GLUCOSE,RANDOM 328 mg/dL (74-106)
[2018-02-15 14:26] LABS: URINE APPEARANCE CLEAR; URINE BILIRUBIN NEGATIVE (NEGATIVE); URINE BLOOD NEGATIVE (NEGATIVE); URINE COLOR YELLOW; URINE GLUCOSE (UA) 3+ (NEGATIVE); URINE KETONE NEGATIVE (NEGATIVE); URINE LEUK ESTERASE NEGATIVE (NEGATIVE); URINE NITRITE NEGATIVE (NEGATIVE); URINE PROTEIN NEGATIVE (NEGATIVE); URINE UROBILINOGEN NEGATIVE mg/dL (0.2-1.0)
--- NOTE | 2018-02-15 14:30 | EKG ---
Test Reason : Blood Pressure : / mmHG Vent. Rate : 057 BPM Atrial Rate : 057 BPM P-R Int : 172 ms QRS Dur : 086 ms QT Int : 440 ms P-R-T Axes : 046 -23 -16 degrees QTc Int : 428 ms SINUS BRADYCARDIA MINIMAL VOLTAGE CRITERIA FOR LVH, MAY BE NORMAL VARIANT NONSPECIFIC T WAVE ABNORMALITY ABNORMAL ECG WHEN COMPARED WITH ECG OF 28-NOV-2017 17:13, VENT. RATE HAS DECREASED BY 42 BPM INVERTED T WAVES HAVE REPLACED NONSPECIFIC T WAVE ABNORMALITY IN INFERIOR LEADS Confirmed by STEPHANIE GARCIA MD ([id number]) on 02/15/2018 2:29:45 PM Referred By: Confirmed By:STEPHANIE GARCIA MD
[2018-02-15] MEDS ORDERED: morphine CARPU-JECT 2 MG/1 ML DISP.SYRIN IVPUSH ONE (14:48)
[2018-02-15] MEDS ORDERED: SODIUM CHLORIDE 0.9% 500 ML INFUS.BAG IV ONE (15:04)
[2018-02-15] MEDS ORDERED: morphine CARPU-JECT 4 MG/1 ML DISP.SYRIN IVPUSH ONE (16:02)
[2018-02-15 18:20] VITALS: BP 179/93; PULSE 60; TEMP 98.6
== END 2018-02-15 19:17 | disposition home or self-care (01) ==
LOC: JER 10:56
DX: R10.31 Right lower quadrant pain (principal); E11.65 Type 2 diabetes mellitus with hyperglycemia; I10 Essential (primary) hypertension; E78.00 Pure hypercholesterolemia, unspecified; Z79.84 Long term (current) use of oral hypoglycemic drugs; F03.90 Unspecified dementia, unspecified severity, without behavioral disturbance, psychotic disturbance, mood disturbance, and anxiety
CPT/HCPCS: 36415; 74177-TC; 80053; 81003; 83690; 85025; 87086; 93005; 93010; 99282-25

== ENCOUNTER 2018-03-11 13:48 | Inpatient (IN) | payer OTHER ==
--- NOTE | 2018-03-11 14:03 | PDOC ---
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 Pt noticed weakness of his RUE yesterday at around 1pm yesterday, after getting off a bus. He is R hand dorminant and has been unable to write, to grasp his phone or coffee mug since onset of the symptoms. No hx of trauma, no syncope, no blurring of vision, no slurring of speech or facial droop. No chest pain, palpitations or SOB. Although EMR documents transient prior RUE weakness, pt reports having previous L sided UE weakness. No dysuria, change in bowel habits. For the past weak, patient has noticed generalized body weakness without myalgias. 03/11/18 17:06 Timing/Duration: 24 hours Severity: moderate Associated Symptoms: reports: weakness. denies: chest pain, cough, diaphoresis , fever/chills NIH Stroke Scale - Last Known Well Date/Time & Onset Date Last Known Well: 03/10/18 Time Last Known Well: 13:30 - Initial Evaluation Level of consciousness: Alert Ask patient the month and their age: Answers both correctly Ask patient to open & close eyes; make fist and let go: Obeys both correctly Best gaze (horizontal eye movement): Normal Visual field testing: No visual field loss Facial paresis (Show teeth/raise eyebrows/close eyes tight): Normal symmetrical movement Motor Function: Left Arm: Drift Motor Function: Right Arm: Some effort against gravity Motor Function: Left Leg: Drift Motor Function: Right Leg: Normal (extends leg 30 degrees for 5 seconds without drift) Limb Ataxia: No ataxia Sensory(Use pinprick test arms,legs,trunk,face/side to side): Normal Best language (Describe picture, name items, read sentences): No Aphasia Dysarthria (read several words): Normal articulation Extinction and Inattention: No abnormality - Total Score NIH Stroke Scale Score: 4 Past History - Travel Traveled outside of the country in the last 30 days: No Close contact w/someone who was outside of country & ill: No - Past Medical History Allergies/Adverse Reactions: Allergies Allergy/AdvReac Type Severity Reaction Status Date / Time No Known Allergies Allergy Verified 03/11/18 13:56 Home Medications: Ambulatory Orders metFORMIN HCL [Glucophage -] 500 mg PO BIDI tablet 03/28/17 Amlodipine Besylate [Norvasc -] 5 mg PO DAILY #0 tablet 03/29/17 Oxycodone HCl/Acetaminophen [Percocet 5-325 mg Tablet -] 1 combo PO Q6H PRN #14 tablet MDD 4 02/15/18 Cancer: No COPD: No DVT: No Dementia: Yes Diabetes: Yes HTN: Yes Hypercholesterolemia: Yes - Immunization History Immunization Up to Date: Yes - Suicide/Smoking/Psychosocial Hx Smoking History: Never smoked Have you smoked in the past 12 months: No If you are a former smoker, when did you quit?: 30 years ago Information on smoking cessation initiated: No Hx Alcohol Use: No Drug/Substance Use Hx: No Substance Use Type: None Hx Substance Use Treatment: No Review of Systems - Review of Systems Able to Perform ROS?: Yes Is the patient limited Iraqi proficient: Yes Constitutional: Yes: Weakness. No: Chills, Diaphoresis, Fever HEENTM: No: Blurred Vision, Double Vision, Ear Discharge, Nose Congestion, Tinnitus, Difficulty Swallowing Respiratory: No: Cough, Shortness of Breath, SOB at Rest, Wheezing Cardiac (ROS): No: Chest Pain, Edema, Palpitations ABD/GI: Yes: Poor Appetite. No: Abdominal Distended, Nausea, Vomiting : No: Burning, Dysuria, Hematuria Musculoskeletal: Yes: Muscle Weakness. No: Joint Pain, Neck Pain, Joint Stiffness Neurological: Yes: Weakness ( ). No: Headache, Numbness, Pre-Existing Deficit, Seizure, Tingling *Physical Exam - Vital Signs Last Vital Signs Temp Pulse Resp BP Pulse Ox 97.7 F 75 18 105/90 97 03/11/18 13:54 03/11/18 13:54 03/11/18 13:54 03/11/18 13:54 03/11/18 13:54 - Physical Exam General Appearance: Yes: Appropriately Dressed. No: Apparent Distress HEENT: positive: EOMI, GUDELIA, Normal ENT Inspection. negative: Pharyngeal Erythema, Tonsillar Exudate, Sinus Tenderness Neck: positive: Supple Respiratory/Chest: positive: Lungs Clear, Normal Breath Sounds. negative: Wheezing Cardiovascular: positive: Regular Rate, S1, S2. negative: Murmur Gastrointestinal/Abdominal: positive: Normal Bowel Sounds, Soft. negative: Tender Extremity: negative: Pedal Edema, Swelling Neurologic: positive: Fully Oriented, Alert, Motor Strength 5/5 (Motor strength 5/5 bilateral lower extremity and LUE. Intact sensations. Motor strenth-RUE- hand grip3/5, RUE4/5 ). negative: Facial Droop, Sensory Deficit, Confused, Disoriented Heart Score/ECG Review - Electrocardiogram EKG: Normal - Age Age: >/= 65 - Risk Factors Risk Factors Heart Score: Yes Hx Hypercholesterolemia, Yes Hx Hypertension, Yes Hx Diabetes, Yes Smoking History ED Treatment Course - LABORATORY CBC & Chemistry Diagram: 03/11/18 14:41 03/11/18 14:41 Medical Decision Making - Medical Decision Making New onset RUE weakness, last normal 1.30pm on 03/11/18 No dysarthria or facial droop Plan: EKG, CT head, CBC, CMP, trops, CXR. Since he had L carotid endarterectomy and has RUE symptoms, carotid US will be considered following CT head 03/11/18 16:54 Pt has elevated glucose of 408 Does not take home insulin (on Metformin) Plan: SQ insulin aspart 6u stat BGM Q2h 03/11/18 17:06 CT head and CXR did not show any accurate pathology To admit to Dr Nice's service for Dr Virgil Mercedes NIH score 2 03/11/18 17:28 *DC/Admit/Observation/Transfer Diagnosis at time of Disposition: Stroke Qualifiers: Laterality of affected vessel: left - Discharge Dispostion Condition at time of disposition: Stable Admit: Yes Decision to Admit order Date/Time: Spoke with Dr Nice. Based on the hx, we need to establish whether or not there is a new CVA, although pt denies residual deficits. Dr Nice is willing to admit to tele and have Dr Ivan as neurologist assess the patient 03/11/18 17:22 - Referrals Referrals: Virgil Mercedes MD [Primary Care Provider] - - Patient Instructions - Post Discharge Activity
[2018-03-11] MEDS ORDERED: ASPIRIN 81 MG CHEWABLE TABLETS PO ONE (14:28)
[2018-03-11 14:49] LABS: BASO % 1.1 % (0-2.0); EOS % 3.6 % (0-4.5); HEMATOCRIT 41.5 % (35.4-49); HEMOGLOBIN 14.3 GM/dL (11.7-16.9); LYMPH % 9.4 % (8-40); MCH 28.1 pg (25.7-33.7); MCHC 34.4 g/dl (32.0-35.9); MEAN CELL VOLUME 81.6 fl (80-96); MONO % 5.8 % (3.8-10.2); NEUT % 80.1 % (42.8-82.8); PLATELET COUNT 254 K/MM3 (134-434); RBC 5.08 M/mm3 (4.00-5.60); RDW 14.1 % (11.9-15.9); WHITE BLOOD COUNT 6.7 K/mm3 (4.0-10.0)
--- NOTE | 2018-03-11 14:52 | PDOC ---
Attending Attestation - HPI HPI: 03/11/18 16:42 The patient is a 72 year old male, with a significant past medical history of AD (s/p Carotid endarterectomy), DM, and HTN, who presents to the emergency department with, right upper extremity weakness. As per patient, the weakness began yesterday at approximately 1pm. He reports he was unable to write or grasp things with his right hand. He denies any blurred vision. He denies any facial droop or syncope. He denies any recent fevers, chills, headache or dizziness. He denies any recent nausea, vomit, diarrhea or constipation. He denies any recent chest pain or shortness of breath. He denies any recent dysuria, frequency, urgency or hematuria. Allergies: NKA Past surgical history: Carotid endarterectomy. Social History: Nonsmoker. Denies EtOH use and recreational drug use. Primary Care Physician: Dr. Virgil Mercedes <Hanna Godoy - Last Filed: 03/11/18 16:42> - Resident Resident Name: Kindra English I - ED Attending Attestation I have performed the following: I have examined & evaluated the patient, The case was reviewed & discussed with the resident, I agree w/resident's findings & plan, Exceptions are as noted - Physicial Exam PE: GENERAL: Awake, alert, and fully oriented, in no acute distress HEAD: No signs of trauma EYES: PERRLA, EOMI, sclera anicteric, conjunctiva clear ENT: Auricles normal inspection, hearing grossly normal, nares patent, oropharynx clear without exudates. Moist mucosa NECK: Normal ROM, supple, no lymphadenopathy, JVD, or masses LUNGS: Breath sounds equal, clear to auscultation bilaterally. No wheezes, and no crackles HEART: Regular rate and rhythm, normal S1 and S2, no murmurs, rubs or gallops ABDOMEN: Soft, nontender, normoactive bowel sounds. No guarding, no rebound. No masses EXTREMITIES: Normal range of motion, no edema. No clubbing or cyanosis. No cords, erythema, or tenderness NEUROLOGICAL: Cranial nerves II through XII grossly intact. See NIHSS. SKIN: Warm, Dry, normal turgor, no rashes or lesions noted. - Medical Decision Making Pt with R-sided weakness since last night, out of window for tPA. Will obtain CTH, labs, plan for admission. <Enedina Kwon - Last Filed: 03/16/18 07:28> Heart Score/ECG Review - ECG Impressions Comment:: EKG read 16:28- NSR 67 bpm, no acute ST/T changes. +LVH. <Enedina Kwon - Last Filed: 03/16/18 07:28> NIH Stroke Scale - Last Known Well Date/Time & Onset Date Last Known Well: 03/10/18 - Initial Evaluation Level of consciousness: Alert Ask patient the month and their age: Answers both correctly Ask patient to open & close eyes; make fist and let go: Obeys both correctly Best gaze (horizontal eye movement): Normal Visual field testing: No visual field loss Facial paresis (Show teeth/raise eyebrows/close eyes tight): Normal symmetrical movement Motor Function: Left Arm: Normal Motor Function: Right Arm: Drift Motor Function: Left Leg: Normal (extends leg 30 degrees for 5 seconds without drift) Motor Function: Right Leg: Drift Limb Ataxia: No ataxia Sensory(Use pinprick test arms,legs,trunk,face/side to side): Normal Best language (Describe picture, name items, read sentences): No Aphasia Dysarthria (read several words): Normal articulation Extinction and Inattention: No abnormality - Total Score NIH Stroke Scale Score: 2 <Enedina Kwon - Last Filed: 03/16/18 07:28> Attestations - Attestations 03/11/18 16:42 Documentation prepared by Hanna Godoy, acting as bacteriologist medical for Enedina Kwon MD. <Hanna Godoy - Last Filed: 03/11/18 16:42>
[2018-03-11] MEDS ORDERED: ASPIRIN 81 MG CHEWABLE TABLETS ONE (15:00)
[2018-03-11 15:03] LABS: INR 0.97 (0.82-1.09)
[2018-03-11 15:13] LABS: ALBUMIN 4.2 g/dl (3.4-5.0); ANION GAP 7 (8-16); BILIRUBIN,TOTAL 0.3 mg/dL (0.2-1.0); BLOOD UREA NITROGEN 30 mg/dL (7-18); CALCIUM 9.1 mg/dL (8.5-10.1); CHLORIDE 97 mmol/L (98-107); CHOLESTEROL 265 mg/dL (50-200); CO2 27 mmol/L (21-32); CREATININE 1.2 mg/dL (0.7-1.3); LDL CHOLESTEROL (ONLY SJRH) 179 mg/dL (5-100); POTASSIUM 4.5 mmol/L (3.5-5.1); SGOT/AST 11 U/L (15-37); SGPT/ALT 18 U/L (12-78); SODIUM 131 mmol/L (136-145); TOT PROT 7.5 g/dl (6.4-8.2); TRIGLYCERIDES 269 mg/dL (35-160)
[2018-03-11 15:14] LABS: ALK PHOS 80 U/L (45-117); HDL CHOLESTEROL 38 mg/dL (40-60)
[2018-03-11 15:16] LABS: GLUCOSE,RANDOM 408 mg/dL (74-106)
[2018-03-11] MEDS ORDERED: SODIUM CHLORIDE 1,000 ML IV SCH (15:30)
[2018-03-11] MEDS ORDERED: INSULIN DETEMIR 100 UNITS/ML MDV SQ ONE (15:33)
[2018-03-11] MEDS ORDERED: INSULIN REGULAR HUMAN 100 UNITS/ML *VIAL SQ ONE (15:53)
[2018-03-11] MEDS ORDERED: INSULIN REGULAR HUMAN 100 UNITS/ML *VIAL ONE (15:54)
[2018-03-11 16:42] LABS: URINE APPEARANCE CLEAR; URINE BILIRUBIN NEGATIVE (<2.0 mg/dL); URINE BLOOD NEGATIVE (NEGATIVE); URINE COLOR LTYELLOW; URINE GLUCOSE (UA) 3+ (NEGATIVE); URINE KETONE NEGATIVE (NEGATIVE); URINE LEUK ESTERASE NEGATIVE (NEGATIVE); URINE NITRITE NEGATIVE (NEGATIVE); URINE PROTEIN NEGATIVE (NEGATIVE); URINE UROBILINOGEN NEGATIVE mg/dL (0.2-1.0)
[2018-03-12 06:15] VITALS: BMI 25.9
[2018-03-12] MEDS: metFORMIN HCL 500 MG TABLET (FP) PO SCH ×2 (06:17→17:17)
[2018-03-12 06:55] LABS: BASO % 1.4 % (0-2.0); EOS % 10.8 % (0-4.5); HEMOGLOBIN 13.2 GM/dL (11.7-16.9); LYMPH % 22.8 % (8-40); MCH 28.3 pg (25.7-33.7); MCHC 34.8 g/dl (32.0-35.9); MEAN CELL VOLUME 81.3 fl (80-96); MONO % 8.5 % (3.8-10.2); NEUT % 56.5 % (42.8-82.8); PLATELET COUNT 228 K/MM3 (134-434); RBC 4.67 M/mm3 (4.00-5.60); RDW 14.3 % (11.9-15.9); WHITE BLOOD COUNT 4.3 K/mm3 (4.0-10.0)
[2018-03-12 07:10] LABS: ALBUMIN 3.4 g/dl (3.4-5.0); ANION GAP 9 (8-16); BLOOD UREA NITROGEN 20 mg/dL (7-18); CALCIUM 8.8 mg/dL (8.5-10.1); CHLORIDE 103 mmol/L (98-107); CO2 25 mmol/L (21-32); POTASSIUM 3.9 mmol/L (3.5-5.1); SODIUM 137 mmol/L (136-145)
[2018-03-12 07:15] LABS: ALK PHOS 61 U/L (45-117); BILIRUBIN,TOTAL 0.5 mg/dL (0.2-1.0); SGOT/AST 13 U/L (15-37); SGPT/ALT 16 U/L (12-78); TOT PROT 6.3 g/dl (6.4-8.2)
[2018-03-12 07:18] LABS: GLUCOSE,RANDOM 309 mg/dL (74-106)
[2018-03-12 07:43] LABS: CHOLESTEROL 225 mg/dL (50-200); HDL CHOLESTEROL 34 mg/dL (40-60); LDL CHOLESTEROL (ONLY SJRH) 158 mg/dL (5-100); TRIGLYCERIDES 227 mg/dL (35-160)
--- NOTE | 2018-03-12 08:37 | CON.CARD ---
Cardiology Consult (text) - Consultation Consultation Note: Cardiology Consult Dictated IMP: New onset right arm weakness, r/o CVA H/o severe LICA stenosis s/p CEA H/o CVA REC: F/u carotid US Echo Telemetry to exclude occult AF LDL goal 70mg/dl ASA and statin Neuro eval
[2018-03-12] MEDS ORDERED: PT OWN MED DRAWER 7, Y5N ONE (08:55)
[2018-03-12] MEDS: ASPIRIN COATED 81 MG TABLET.EC PO SCH (09:26)
[2018-03-12] MEDS: amLODIPine BESYLATE 5 MG TABLET (FP) PO SCH (09:26)
[2018-03-12] MEDS: ENOXAPARIN NA (PORCINE) 40 MG/0.4 ML DISP.SYRIN SQ SCH (09:26)
[2018-03-12] MEDS ORDERED: SODIUM POLYSTYRENE SULFONATE 15 GM/60 ML BOTTLE ONE (09:31)
--- NOTE | 2018-03-12 10:25 | CONS ---
DATE OF CONSULTATION: DATE OF DICTATION: 03/12/2018 CARDIOLOGY CONSULTATION REQUESTED BY: Enedina Nice MD HISTORY OF PRESENT ILLNESS: A 72-year-old male with past medical history of hypertension, hyperlipidemia, diabetes, COPD, TIA versus CVA in February 2017 with history of severe left internal carotid artery stenosis status post carotid endarterectomy in March 2017, now presented to the ER with 1-2 days of right upper extremity weakness. He felt clumsy with weakness of the right hand, inability to write or grasp, or hold his cup of coffee. He denies any other focal neurological symptoms. He denies palpations, chest pain, shortness of breath, PND, orthopnea. PAST MEDICAL HISTORY: As above. ALLERGIES: He has no known drug allergies. MEDICATIONS: Home medications include metformin 500 mg p.o. b.i.d., Percocet p.r.n., and amlodipine 5 mg p.o. daily. FAMILY HISTORY: Noncontributory to this presentation. SOCIAL HISTORY: Nonsmoker. PHYSICAL EXAMINATION: Vital Signs: Afebrile, pulse 60, sinus rhythm, blood pressure has been ranging between 105-146 systolic/80-90. O2 saturation 98 on room air. Neck: He has a well-healed left carotid endarterectomy scar. There are no carotid bruits. Heart: Regular with no murmurs. Chest: Clear. Abdomen: Soft, nontender. Extremities: No edema. DIAGNOSTIC DATA: The presenting ECG showed normal sinus rhythm at 67 beats per minute, leftward axis, borderline LVH, poor R wave progression consistent with leftward axis, cannot rule out old septal NJ pattern, no acute ST changes. CT head showed no acute ischemic infarct. Chest x-ray was clear except for cardiomegaly on a portable film. Labs: CBC was normal. INR 0.97. Basic metabolic panel significant for initial sodium of 131, now 137, normal potassium, normal creatinine. Elevated glucose at 309. CK/troponin negative x2 sets. LFTs normal. LDL cholesterol initially 179. Total cholesterol 227. IMPRESSION: 1. New onset of right arm weakness, rule out acute cerebrovascular accident. 2. History of severe left internal carotid artery stenosis status post carotid endarterectomy. 3. History of cerebrovascular accident. RECOMMENDATIONS: 1. Follow up carotid ultrasound. 2. Echocardiogram for EF assessment. 3. Telemetry to rule out occult atrial fibrillation, paroxysmal. 4. Titrate statin for LDL goal of 70. 5. Continue aspirin and statin, would intensify statin therapy. 6. Neurological evaluation. Thank you for the consultation. KEVIN CHAPPELL M.D. [id number]
--- NOTE | 2018-03-12 12:25 | EKG ---
Test Reason : Blood Pressure : / mmHG Vent. Rate : 067 BPM Atrial Rate : 067 BPM P-R Int : 170 ms QRS Dur : 074 ms QT Int : 406 ms P-R-T Axes : 049 -31 003 degrees QTc Int : 429 ms POOR DATA QUALITY, INTERPRETATION MAY BE ADVERSELY AFFECTED NORMAL SINUS RHYTHM LEFT AXIS DEVIATION MINIMAL VOLTAGE CRITERIA FOR LVH, MAY BE NORMAL VARIANT ABNORMAL ECG WHEN COMPARED WITH ECG OF 15-FEB-2018 13:36, NONSPECIFIC T WAVE ABNORMALITY NO LONGER EVIDENT IN LATERAL LEADS Confirmed by MARISOL HENDERSON MD ([id number]) on 03/12/2018 12:25:13 PM Referred By: Confirmed By:MARISOL HENDERSON MD
--- NOTE | 2018-03-12 13:16 | HP ---
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 MACHINE: Yes: CVA, Other Cardiovascular: Yes: Aneurysm, HTN, Hyperlipdemia Pulmonary: Yes: COPD Renal/: Yes: BPH, Other (PROSTATE BX) Musculoskeletal: Yes: Chronic low back pain Endocrine: Yes: Diabetes Mellitus - Smoking History Smoking history: Never smoked Have you smoked in the past 12 months: No If you are a former smoker, when did you quit?: 30 years ago - Alcohol/Substance Use Hx Alcohol Use: No History of Substance Use: reports: None - Social History ADL: Independent History of Recent Travel: No Home Medications - Allergies Allergies/Adverse Reactions: Allergies Allergy/AdvReac Type Severity Reaction Status Date / Time No Known Allergies Allergy Verified 03/11/18 13:56 - Home Medications Home Medications: Ambulatory Orders metFORMIN HCL [Glucophage -] 500 mg PO BIDI tablet 03/28/17 Amlodipine Besylate [Norvasc -] 5 mg PO DAILY #0 tablet 03/29/17 Oxycodone HCl/Acetaminophen [Percocet 5-325 mg Tablet -] 1 combo PO Q6H PRN #14 tablet MDD 4 02/15/18 Physical Examination Vital Signs: Vital Signs Temperature 98.5 F 03/12/18 05:31 Pulse Rate 59 L 03/12/18 05:31 Respiratory Rate 20 03/12/18 05:31 Blood Pressure 146/82 03/12/18 05:31 O2 Sat by Pulse Oximetry (%) 98 03/12/18 02:00 Labs: CBC, BMP 03/12/18 06:30 03/12/18 06:30
[2018-03-12] MEDS ORDERED: amLODIPine BESYLATE 2.5 MG TABLET (FP) PO ONE (20:15)
[2018-03-12 20:40] LABS: URINE APPEARANCE CLEAR; URINE BILIRUBIN NEGATIVE (<2.0 mg/dL); URINE BLOOD NEGATIVE (NEGATIVE); URINE COLOR STRAW; URINE GLUCOSE (UA) 3+ (NEGATIVE); URINE KETONE NEGATIVE (NEGATIVE); URINE LEUK ESTERASE NEGATIVE (NEGATIVE); URINE NITRITE NEGATIVE (NEGATIVE); URINE PROTEIN NEGATIVE (NEGATIVE); URINE UROBILINOGEN NEGATIVE mg/dL (0.2-1.0)
[2018-03-12] MEDS: ATORVASTATIN CA 10 MG TABLET (FP) PO SCH (21:17)
--- NOTE | 2018-03-12 23:04 | CONSULT ---
Consult - text type - Consultation Consultation Note: NEUROLOGY CONSULTATION is greatly appreciated: This 72 yo RH man with h/o HTN, Chol, DM, COPD and smoking in the past is s/p transient right sided weakness and left carotid endarectomy last year. Maintained on metformin, amlodipine, lipitor, ASA. Now admitted after three days of right arm and hand numbness and weakness. Sudden onset and now, gradual improvement. CT of head (reviewed): moderate atrophy and scattered microvascular changes. Carotid duplex doppler: moderate calcified intimal thickening (R>L) and s/p left carotid endarectomy. In ER glucose was 408 mg%. Multiple BP's all reading in 173-185/92-99 range. MARCIO: s/p left CEA. No bruits. Cor reg. NEURO: MS/speech: normal CN: Full daniel and EOM;s. Mild left facial droop. Decreased tongue JESSIE's. Gag OK. Motor: Min right drift. Decreased right grasp, intrinsics. finger extensors (all 4-/5) with reduced Oswald. Leg strength normal. Normal reflexes except AJ's. Toes downgoing. Coord: No FTN dystaxia Sensory: Normal Gait: reduced arm swing on right. IMP: Left cerebral dysfunction. Probably a left internal capsule or pontine lacunar infarct due to systolic hypertension and hyperglycemia. SUGGEST: Agree with MRI of brain (C-) Increase BP meds to maintain BP in 120-130/70-80 range. Increase diabetes meds to control BP Add plavix to ASA Out patient O.T. Neuro f/u as out patient. Thank you very much, Chacho Ivan MD
[2018-03-13] MEDS: metFORMIN HCL 500 MG TABLET (FP) PO SCH ×2 (06:23→16:23)
[2018-03-13 07:02] LABS: BASO % 1.9 % (0-2.0); EOS % 10.4 % (0-4.5); HEMATOCRIT 38.7 % (35.4-49); HEMOGLOBIN 13.4 GM/dL (11.7-16.9); LYMPH % 25.7 % (8-40); MCHC 34.6 g/dl (32.0-35.9); MEAN PLT VOLUME 8.8 fl (7.5-11.1); MONO % 8.4 % (3.8-10.2); NEUT % 53.6 % (42.8-82.8); PLATELET COUNT 240 K/MM3 (134-434); RBC 4.77 M/mm3 (4.00-5.60); WHITE BLOOD COUNT 4.3 K/mm3 (4.0-10.0)
[2018-03-13 07:18] LABS: CHLORIDE 103 mmol/L (98-107); POTASSIUM 4.2 mmol/L (3.5-5.1); SODIUM 137 mmol/L (136-145)
[2018-03-13 07:24] LABS: ALBUMIN 3.4 g/dl (3.4-5.0); ALK PHOS 63 U/L (45-117); ANION GAP 5 (8-16); BILIRUBIN,TOTAL 0.3 mg/dL (0.2-1.0); BLOOD UREA NITROGEN 18 mg/dL (7-18); CALCIUM 8.6 mg/dL (8.5-10.1); CO2 29 mmol/L (21-32); CREATININE 0.9 mg/dL (0.7-1.3); GLUCOSE,RANDOM 212 mg/dL (74-106); SGOT/AST 8 U/L (15-37); SGPT/ALT 14 U/L (12-78); TOT PROT 6.2 g/dl (6.4-8.2)
[2018-03-13] MEDS: ENOXAPARIN NA (PORCINE) 40 MG/0.4 ML DISP.SYRIN SQ SCH (10:05)
[2018-03-13] MEDS: amLODIPine BESYLATE 5 MG TABLET (FP) PO SCH (10:06)
[2018-03-13] MEDS: ASPIRIN COATED 81 MG TABLET.EC PO SCH (10:09)
--- NOTE | 2018-03-13 10:12 | PN ---
Progress Note, Physician Chief Complaint: Appreciate Neuro input Echo and carotid w/out sig findings TELE: NSR Awaiting MRI History of Present Illness: BP is elevated - Current Medication List Current Medications: Active Medications Amlodipine Besylate (Norvasc -) 5 mg PO DAILY [facility] Last Admin: 03/13/18 10:06 Dose: 5 mg Aspirin (Ecotrin -) 81 mg PO DAILY [facility] Last Admin: 03/13/18 10:09 Dose: 81 mg Atorvastatin Calcium (Lipitor -) 10 mg PO HS [facility] Last Admin: 03/12/18 21:17 Dose: 10 mg Enoxaparin Sodium (Lovenox -) 40 mg SQ DAILY [facility] Last Admin: 03/13/18 10:05 Dose: 40 mg Metformin HCl (Glucophage -) 500 mg PO BIDI [facility] Last Admin: 03/13/18 06:23 Dose: 500 mg - Objective Vital Signs: Vital Signs Temperature 98.3 F 03/13/18 09:00 Pulse Rate 62 03/13/18 09:00 Respiratory Rate 20 03/13/18 09:00 Blood Pressure 180/94 03/13/18 09:00 O2 Sat by Pulse Oximetry (%) 97 03/13/18 09:00 Constitutional: Yes: No Distress, Calm Cardiovascular: Yes: Regular Rate and Rhythm Respiratory: Yes: CTA Bilaterally Gastrointestinal: Yes: Soft Edema: No Neurological: Yes: Oriented Labs: CBC, BMP 03/13/18 06:30 03/13/18 06:30 INR, PTT INR 0.97 (0.82-1.09) 03/11/18 14:35 Laboratory Tests 03/13/18 03/13/18 06:30 06:30 WBC 4.3 Hct 38.7 Plt Count 240 Sodium 137 Potassium 4.2 Creatinine 0.9 - ....Imaging EKG: Image Reviewed Assessment/Plan IMP: New onset right arm weakness, r/o CVA H/o severe LICA stenosis s/p CEA H/o CVA Uncontrolled HTN REC: 1. MRI brain 2. Cont ASA and statin for LDL 70mg/dl 3. Add ARB for BP control
[2018-03-13] MEDS ORDERED: HYDROCHLOROTHIAZIDE 25 MG TABLET (FP) PO ONE (10:30)
[2018-03-13] MEDS: LOSARTAN POTASSIUM 50 MG TABLET (FP) PO SCH (10:45)
[2018-03-13] MEDS ORDERED: ONDANSETRON 4 MG/2 ML VIAL IVPUSH ONE (12:00)
[2018-03-13] MEDS: ATORVASTATIN CA 10 MG TABLET (FP) PO SCH (21:45)
--- NOTE | 2018-03-13 22:32 | PN ---
Progress Note, Physician History of Present Illness: No new complaints - Current Medication List Current Medications: Active Medications Amlodipine Besylate (Norvasc -) 5 mg PO DAILY [facility] Last Admin: 03/13/18 10:06 Dose: 5 mg Aspirin (Ecotrin -) 81 mg PO DAILY [facility] Last Admin: 03/13/18 10:09 Dose: 81 mg Atorvastatin Calcium (Lipitor -) 10 mg PO HS [facility] Last Admin: 03/13/18 21:45 Dose: 10 mg Enoxaparin Sodium (Lovenox -) 40 mg SQ DAILY [facility] Last Admin: 03/13/18 10:05 Dose: 40 mg Losartan Potassium (Cozaar -) 50 mg PO DAILY [facility] Last Admin: 03/13/18 10:45 Dose: 50 mg Metformin HCl (Glucophage -) 500 mg PO BIDI [facility] Last Admin: 03/13/18 16:23 Dose: 500 mg - Objective Vital Signs: Vital Signs Temperature 97.7 F 03/13/18 20:00 Pulse Rate 58 L 03/13/18 20:00 Respiratory Rate 16 03/13/18 20:00 Blood Pressure 143/67 03/13/18 20:00 O2 Sat by Pulse Oximetry (%) 97 03/13/18 20:00 HENT: Yes: WNL Neck: Yes: WNL, Supple Cardiovascular: Yes: WNL, Regular Rate and Rhythm Respiratory: Yes: WNL, Regular, CTA Bilaterally Gastrointestinal: Yes: WNL, Normal Bowel Sounds, Soft Edema: No Labs: CBC, BMP 03/13/18 06:30 03/13/18 06:30 INR, PTT INR 0.97 (0.82-1.09) 03/11/18 14:35 Problem List - Problems (1) Weakness Assessment/Plan: Lt cerebral dysfunction MRI did not show any acute pathology however there is an old infarct Cont asa/ Add plavix DC planning for am Code(s): R53.1 - WEAKNESS (2) Hypertension Assessment/Plan: BP better controlled Cont losartan/hctz/norvasc Echo unremarkable Code(s): I10 - ESSENTIAL (PRIMARY) HYPERTENSION (3) Diabetes Assessment/Plan: Increase metformin Check HgA1c Code(s): E11.9 - TYPE 2 DIABETES MELLITUS WITHOUT COMPLICATIONS (4) HLD (hyperlipidemia) Assessment/Plan: Cont lipitor Code(s): E78.5 - HYPERLIPIDEMIA, UNSPECIFIED (5) CVA (cerebral vascular accident) Code(s): I63.9 - CEREBRAL INFARCTION, UNSPECIFIED Qualifiers: Laterality of affected vessel: left (6) Carotid stenosis Assessment/Plan: Carotid doppler did not show significant stenosis Code(s): I65.29 - OCCLUSION AND STENOSIS OF UNSPECIFIED CAROTID ARTERY (7) H/O carotid endarterectomy Code(s): Z98.890 - OTHER SPECIFIED POSTPROCEDURAL STATES (8) COPD (chronic obstructive pulmonary disease) Code(s): J44.9 - CHRONIC OBSTRUCTIVE PULMONARY DISEASE, UNSPECIFIED
[2018-03-14] MEDS ORDERED: metFORMIN HCL 500 MG TABLET (FP) PO SCH (07:00)
--- NOTE | 2018-03-14 08:33 | PN ---
Progress Note, Physician Chief Complaint: No new complaints TELE: NSR BP improved w/ addition losartan MRI no acute infarct - Current Medication List Current Medications: Active Medications Amlodipine Besylate (Norvasc -) 5 mg PO DAILY [facility] Last Admin: 03/13/18 10:06 Dose: 5 mg Aspirin (Ecotrin -) 81 mg PO DAILY [facility] Last Admin: 03/13/18 10:09 Dose: 81 mg Atorvastatin Calcium (Lipitor -) 10 mg PO HS [facility] Last Admin: 03/13/18 21:45 Dose: 10 mg Clopidogrel Bisulfate (Plavix -) 75 mg PO DAILY [facility] Enoxaparin Sodium (Lovenox -) 40 mg SQ DAILY [facility] Last Admin: 03/13/18 10:05 Dose: 40 mg Losartan Potassium (Cozaar -) 50 mg PO DAILY [facility] Last Admin: 03/13/18 10:45 Dose: 50 mg Metformin HCl (Glucophage -) 1,000 mg PO BID@0700,1630 [facility] Last Admin: 03/14/18 06:13 Dose: 1,000 mg - Objective Vital Signs: Vital Signs Temperature 97.5 F L 03/14/18 06:00 Pulse Rate 55 L 03/14/18 06:00 Respiratory Rate 15 03/14/18 06:00 Blood Pressure 149/76 03/14/18 06:00 O2 Sat by Pulse Oximetry (%) 97 03/13/18 20:00 Constitutional: Yes: No Distress, Calm Cardiovascular: Yes: Regular Rate and Rhythm Respiratory: Yes: CTA Bilaterally Gastrointestinal: Yes: Soft Edema: No Neurological: Yes: Alert, Oriented Labs: CBC, BMP 03/13/18 06:30 03/13/18 06:30 INR, PTT INR 0.97 (0.82-1.09) 03/11/18 14:35 - ....Imaging EKG: Image Reviewed Assessment/Plan MP: New onset right arm weakness, acute CVA excluded on MRI H/o severe LICA stenosis s/p CEA H/o CVA Uncontrolled HTN, improved REC: 1. MRI brain without acute inarct. 2. Cont ASA and statin for LDL 70mg/dl 3. BP improved with addition Losartan. 4. No arrhythmias on tele x 48 hours, D/C tele. Discharge planning.
[2018-03-14] MEDS: ASPIRIN COATED 81 MG TABLET.EC PO SCH (09:07)
[2018-03-14] MEDS: amLODIPine BESYLATE 5 MG TABLET (FP) PO SCH (09:07)
[2018-03-14] MEDS: LOSARTAN POTASSIUM 50 MG TABLET (FP) PO SCH (09:07)
[2018-03-14] MEDS: ENOXAPARIN NA (PORCINE) 40 MG/0.4 ML DISP.SYRIN SQ SCH (09:07)
[2018-03-14] MEDS ORDERED: CLOPIDOGREL BISULFATE 75 MG TABLET (FP) PO SCH (10:00)
[2018-03-14 14:42] VITALS: BP 162/75; PULSE 61; TEMP 97.7
--- NOTE | 2018-03-15 16:18 | DS ---
Physical Examination Vital Signs: Vital Signs Temperature 97.7 F 03/14/18 14:39 Pulse Rate 61 03/14/18 14:39 Respiratory Rate 18 03/14/18 14:39 Blood Pressure 162/75 03/14/18 14:39 O2 Sat by Pulse Oximetry (%) 97 03/14/18 09:00 Labs: CBC, BMP 03/13/18 06:30 03/13/18 06:30 Discharge Summary Reason For Visit: CVA Condition: Stable - Instructions Diet, Activity, Other Instructions: 2 gram sodium and 2[address] diet See Dr Mercedes in 1 week [phone] Referrals: Virgil Mercedes MD [Primary Care Provider] - Disposition: HOME - Home Medications Comprehensive Discharge Medication List: Ambulatory Orders Amlodipine Besylate [Norvasc -] 5 mg PO DAILY #0 tablet 03/29/17 Oxycodone HCl/Acetaminophen [Percocet 5-325 mg Tablet] 1 combo PO Q6H PRN #14 tablet MDD 4 02/15/18 Aspirin Coated [Ecotrin -] 81 mg PO DAILY #30 tablet.ec 03/14/18 Atorvastatin Ca [Lipitor] 10 mg PO HS #30 tablet 03/14/18 Clopidogrel Bisulfate [Plavix -] 75 mg PO DAILY #30 tablet 03/14/18 metFORMIN HCL [Glucophage -] 1,000 mg PO BID@0700,1630 #60 tablet 03/14/18
== END 2018-03-14 15:15 | disposition home or self-care (01) | DRG 57 ==
LOC: JER 13:48 → JERBED 17:33 → J4W 03-12 03:36
PROVIDERS: ADMIT Internal Medicine; ATTEND Internal Medicine
DX: G81.91 Hemiplegia, unspecified affecting right dominant side (principal); I10 Essential (primary) hypertension; E78.5 Hyperlipidemia, unspecified; N40.0 Benign prostatic hyperplasia without lower urinary tract symptoms; M54.5 Low back pain; J44.9 Chronic obstructive pulmonary disease, unspecified; E11.65 Type 2 diabetes mellitus with hyperglycemia; Z98.890 Other specified postprocedural states
CPT/HCPCS: 36415; 70450-TC; 70551-TC; 71045-TC-FY; 80053; 80061; 81003; 82465; 82550; 82962; 83036; 83718; 83721; 84478; 84484; 85025; 85610; 85730; 86850; 86900; 86901; 87086; 93005; 93010; 93306-TC; 93880-TC; 97116-GP; 97161-GP; 99285-25; J7030

== ENCOUNTER 2018-06-04 23:28 | Inpatient (IN) | payer MEDICARE, OTHER ==
--- NOTE | 2018-06-05 02:05 | PDOC ---
History of Present Illness - General Stated Complaint: VOMITING Time Seen by Provider: 06/05/18 01:39 History Source: Patient Exam Limitations: No Limitations - History of Present Illness Initial Comments: 06/05/18 02:05 The patient is a 73M with a PMH of CAD (s/p Carotid endartectomy), HTN, DM, and BPH who presents to the ER with complaints of nausea. The patient states that he "has not been himself" for the past 3 days, with nausea, lightheadedness, and weakness, particularly in his R hand and arm. He states that he feels unsteady when he walks and has not had an appetite d/t his nausea. He denies CP , SOB, fever, chills, dysuria, cough, syncope. Past History - Past Medical History Allergies/Adverse Reactions: Allergies Allergy/AdvReac Type Severity Reaction Status Date / Time No Known Allergies Allergy Verified 06/05/18 02:02 Home Medications: Ambulatory Orders Amlodipine Besylate [Norvasc -] 5 mg PO DAILY #0 tablet 03/29/17 Aspirin Coated [Ecotrin -] 81 mg PO DAILY #30 tablet.ec 03/14/18 Clopidogrel Bisulfate [Plavix -] 75 mg PO DAILY #30 tablet 03/14/18 Hydrochlorothiazide [Hctz -] 12.5 mg PO DAILY 06/05/18 Linagliptin/Metformin HCl [Jentadueto 2.5 mg-1000 mg Tab] 1 each PO DAILY Losartan Potassium 25 mg PO DAILY 06/05/18 Tamsulosin HCl 0.4 mg PO DAILY 06/05/18 Cancer: No COPD: No DVT: No Dementia: Yes Diabetes: Yes HTN: Yes Hypercholesterolemia: Yes - Immunization History Immunization Up to Date: Yes - Suicide/Smoking/Psychosocial Hx Smoking History: Never smoked Have you smoked in the past 12 months: No If you are a former smoker, when did you quit?: 30 years ago Information on smoking cessation initiated: No Hx Alcohol Use: No Drug/Substance Use Hx: No Substance Use Type: None Hx Substance Use Treatment: No Review of Systems - Review of Systems Able to Perform ROS?: Yes Comments:: 06/05/18 05:15 GENERAL/CONSTITUTIONAL: No fever or chills. No weakness. HEAD, EYES, EARS, NOSE AND THROAT: No change in vision. No ear pain or discharge. No sore throat. CARDIOVASCULAR: Positive for lightheadedness. No chest pain or palpitations. RESPIRATORY: No cough, wheezing, shortness of breath, or hemoptysis. GASTROINTESTINAL: Positive for nausea. No vomiting, diarrhea, constipation, or abdominal pain. GENITOURINARY: No dysuria, frequency, hematuria, or change in urination. MUSCULOSKELETAL: No joint or muscle swelling or pain. No neck or back pain. SKIN: No rash or lesions. NEUROLOGIC: Positive for ataxia. No headache, numbness, tingling, weakness, loss of consciousness, or change in strength/sensation. ENDOCRINE: No increased thirst. No abnormal weight change. HEMATOLOGIC/LYMPHATIC: No anemia, easy bleeding, or history of blood clots. ALLERGIC/IMMUNOLOGIC: No hives or skin allergy. Is the patient limited Maori proficient: No *Physical Exam - Vital Signs Last Vital Signs Temp Pulse Resp BP Pulse Ox 97.7 F 71 18 164/93 97 06/05/18 00:00 06/05/18 00:00 06/05/18 00:00 06/05/18 00:00 06/05/18 00:00 - Physical Exam Comments: 06/05/18 05:17 GENERAL: Well developed, well nourished. Awake and alert. No acute distress. HEENT: Normocephalic, atraumatic. Hearing grossly normal. Moist mucous membranes. PERRLA, EOMI. No conjunctival pallor. Sclera are non-icteric. NECK: Supple. Full ROM. No JVD. CARDIOVASCULAR: Regular rate and rhythm. No murmurs, rubs, or gallops. PULMONARY: No evidence of respiratory distress. Lungs clear to auscultation bilaterally. No wheezing, rales or rhonchi. ABDOMINAL: Soft. Non-tender. Non-distended. No rebound or guarding. GENITOURINARY: No CVA tenderness bilaterally. MUSCULOSKELETAL: Normal range of motion at all joints. No bony deformities or tenderness. EXTREMITIES: No cyanosis. No clubbing. No edema. No calf tenderness or swelling. SKIN: Warm and dry. Normal capillary refill. No rashes. No jaundice. NEUROLOGICAL: Alert, awake, appropriate. Cranial nerves 2-12 intact. Normal speech. Gait is ataxic. PSYCHIATRIC: Cooperative. Good eye contact. Appropriate mood and affect. Heart Score/ECG Review #1 ECG reviewed & interpreted by me at: 02:35 General ECG Interpretation: Sinus Rhythm, Normal Rate, Normal Intervals, No acute ischemic changes Compared to previous ECG there are: No significant change 06/05/18 05:19 NSR vent rate at 70 CA 166 QRS 78 QTc 423 No SARAH or STD No signs of acute ischemia ED Treatment Course - LABORATORY CBC & Chemistry Diagram: 06/07/18 06:30 06/07/18 06:30 - RADIOLOGY Radiology Studies Ordered: Category Date Time Status CHEST PA & LAT [RAD] Stat Radiology 06/05/18 01:52 Taken Medical Decision Making - Medical Decision Making 06/05/18 05:19 The patient is a 73M with an extensive cardiac medical history who presents to the ER with complaints of nausea, lightheadedness, and ataxia. Pt has CBC, CMP, BNP, and trop WNL. EKG unremarkable. CTH unremarkable. Pt stated that he felt " a little better" after zofran. Will give pt fluids and meclizine and reassess. 06/05/18 07:10 Dr. Nice paged x 2 for recs on admission. 06/05/18 07:35 Chanelhony paged for admission. Pt signed out to Dr. Leos to continue care. *DC/Admit/Observation/Transfer Diagnosis at time of Disposition: Nausea and vomiting, Hyperglycemia - Discharge Dispostion Condition at time of disposition: Fair - Referrals - Patient Instructions - Post Discharge Activity
[2018-06-05] MEDS ORDERED: ONDANSETRON 4 MG/2 ML VIAL IVPUSH ONE (02:09)
--- NOTE | 2018-06-05 02:11 | PDOC ---
Attending Attestation - HPI HPI: 06/05/18 03:22 Patient is a 73 year old male with a significant past medical history of DM, and HTN, Hyperlipidemia, COPD, Chronic low back pain, who presents to the ED with complaints of weakness that began x3 days ago. Patient reports experiencing intermittent weakness that began x3 days ago as well as associated nausea , lightheadedness and unsteady walking. He reports experiencing right arm weakness, prompting him to come into the ED for further evaluation Denies chest pain. Sob. Denies nausea, vomiting. Denies contact with sick individuals, out of state travelling. Denies any other symptoms. Allergies: None Social History: No smoking.No alcohol. No illicit drugs. Surgical history: s/p Carotid endarterectomy PMD: Dr. Virgil arrieta <Chacorta Yates - Last Filed: 06/05/18 03:22> - Resident Resident Name: Joseph Angulo - ED Attending Attestation I have performed the following: I have examined & evaluated the patient, The case was reviewed & discussed with the resident, I agree w/resident's findings & plan, Exceptions are as noted - Physicial Exam PE: 06/05/18 06:53 Physical Exam General Appearance: Yes: Appropriately Dressed. No: Apparent Distress, Intoxicated HEENT: positive: EOMI, GUDELAI, Normal ENT Inspection, Normal Voice, TMs Normal, Pharynx Normal. negative: Pale Conjunctivae, Photophobia, Scleral Icterus (R), Scleral Icterus (L) Neck: positive: Trachea midline, Normal Thyroid, Supple. negative: Tender, Rigid, Carotid bruit, Stridor, Lymphadenopathy (R), Lymphadenopathy (L), Thyromegaly Respiratory/Chest: positive: Lungs Clear, Normal Breath Sounds. negative: Chest Tender, Respiratory Distress, Accessory Muscle Use, Labored Respiration, RES, Crackles, Rales, Rhonchi, Stridor, Wheezing, Dullness Cardiovascular: positive: Regular Rhythm, Regular Rate, S1, S2. negative: Edema , JVD, Murmur, Bradycardia, Tachycardia Vascular Pulses: Dorsalis-Pedis (R): 2+, Doralis-Pedis (L): 2+ Gastrointestinal/Abdominal: positive: Normal Bowel Sounds, Flat, Soft. negative : Tender, Organomegaly, Pulsatile Mass, Increased Bowel Sounds, Decreased BS, Distended, Guarding, Rebound, Hernia, Hepatomegaly, Spleenomegaly Lymphatic: negative: Adenopathy, Tenderness Musculoskeletal: positive: Normal Inspection. negative: CVA Tenderness, Decreased Range of Motion Extremity: positive: Normal Capillary Refill, Normal Inspection, Normal Range of Motion, Pelvis Stable. negative: Tender, Pedal Edema, Swelling, Erythema Integumentary: positive: Normal Color, Dry, Warm. 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 negative: EOM Palsy, Facial Droop, Sensory Deficit - Medical Decision Making 06/05/18 19:44 Pt admitted for further evaluation and care <Faraz Guerra - Last Filed: 06/05/18 19:45>
[2018-06-05 02:26] LABS: BASO % 2.3 % (0-2.0); EOS % 5.6 % (0-4.5); HEMATOCRIT 38.1 % (35.4-49); HEMOGLOBIN 13.3 GM/dL (11.7-16.9); LYMPH % 14.1 % (8-40); MCH 28.4 pg (25.7-33.7); MCHC 34.8 g/dl (32.0-35.9); MEAN CELL VOLUME 81.6 fl (80-96); PLATELET COUNT 268 K/MM3 (134-434); RBC 4.67 M/mm3 (4.00-5.60); RDW 14.2 % (11.9-15.9); WHITE BLOOD COUNT 5.3 K/mm3 (4.0-10.0)
[2018-06-05 02:39] LABS: INR 0.98 (0.82-1.09); PROTHROMBIN TIME (PATIENT) 11.1 SEC (9.7-13.0)
[2018-06-05 02:50] LABS: ALBUMIN 3.8 g/dl (3.4-5.0); ANION GAP 11 (8-16); BILIRUBIN,TOTAL 0.3 mg/dL (0.2-1.0); BLOOD UREA NITROGEN 23 mg/dL (7-18); CALCIUM 9.1 mg/dL (8.5-10.1); CHLORIDE 98 mmol/L (98-107); CO2 28 mmol/L (21-32); SGOT/AST 15 U/L (15-37); SGPT/ALT 26 U/L (12-78); SODIUM 137 mmol/L (136-145)
[2018-06-05 02:53] LABS: ALK PHOS 77 U/L (45-117); N-TERMINAL BNP 49.24 pg/ml (5-125)
[2018-06-05 03:04] LABS: GLUCOSE,RANDOM 344 mg/dL (74-106)
[2018-06-05] MEDS ORDERED: SODIUM CHLORIDE 0.9% 1000 ML INFUS.BAG IV ONE (04:18)
[2018-06-05] MEDS ORDERED: MECLIZINE HCL 25 MG TABLET (FP) PO ONE (04:52)
[2018-06-05] MEDS ORDERED: MECLIZINE HCL 25 MG TABLET (FP) ONE (05:00)
[2018-06-05] MEDS ORDERED: SODIUM CHLORIDE 1,000 ML IV STA (08:06)
--- NOTE | 2018-06-05 08:07 | PDOC ---
*Physical Exam - Vital Signs Last Vital Signs Temp Pulse Resp BP Pulse Ox 97.7 F 71 18 164/93 97 06/05/18 00:00 06/05/18 00:00 06/05/18 00:00 06/05/18 00:00 06/05/18 00:00 ED Treatment Course - LABORATORY CBC & Chemistry Diagram: 06/05/18 02:13 06/05/18 02:13 - ADDITIONAL ORDERS Additional order review: Laboratory Results 06/05/18 06/05/18 06/05/18 02:13 02:13 02:13 PT with INR 11.10 INR 0.98 Sodium 137 Potassium 4.0 Chloride 98 Carbon Dioxide 28 Anion Gap 11 BUN 23 H Creatinine 1.0 Creat Clearance w eGFR > 60 Random Glucose 344 H* D Calcium 9.1 Total Bilirubin 0.3 AST 15 D ALT 26 D Alkaline Phosphatase 77 Creatine Kinase 41 Troponin I < 0.02 B-Natriuretic Peptide 49.24 Total Protein 7.0 Albumin 3.8 Lipase 134 06/05/18 02:13 RBC 4.67 MCV 81.6 MCHC 34.8 RDW 14.2 MPV 9.0 Neutrophils % 69.0 D Lymphocytes % 14.1 D Monocytes % 9.0 Eosinophils % 5.6 H Basophils % 2.3 H - Medications Given in the ED: ED Medications Discontinued Medications Generic Name Dose Route Start Last Admin Trade Name Amadoq PRN Reason Stop Dose Admin Meclizine HCl 25 mg 06/05/18 04:52 06/05/18 05:06 Antivert - PO 06/05/18 04:53 25 mg ONCE ONE Administration Ondansetron HCl 4 mg 06/05/18 02:09 06/05/18 04:00 Zofran Injection IVPUSH 06/05/18 02:10 4 mg ONCE ONE Administration Sodium Chloride 500 ml 06/05/18 04:18 06/05/18 04:43 Normal Saline - IV 06/05/18 04:19 500 ml ONCE ONE Administration Medical Decision Making - Medical Decision Making 06/05/18 08:[address] Angulo. 06/05/18 08:08 Patient is a 73 yo male w/ pmh of CAD s/p Carotid endartectomy, HTN, DM, and BPH presenting w/ complaints of nausea unrelieved by zofran. Patient also feels unsteady and altered from his baseline. Head CT / CXR negative for acute process ; EKG unchanged. Admitting for further evaluation and cardiac workup. *DC/Admit/Observation/Transfer Diagnosis at time of Disposition: Hyperglycemia Nausea and vomiting Qualifiers: Vomiting type: unspecified Vomiting Intractability: non-intractable Qualified Code(s): R11.2 - Nausea with vomiting, unspecified - Discharge Dispostion Condition at time of disposition: Fair Decision to Admit order: Yes - Referrals Referrals: Virgil Mercedes MD [Primary Care Provider] - - Patient Instructions - Post Discharge Activity
--- NOTE | 2018-06-05 12:00 | EKG ---
Test Reason : Blood Pressure : / mmHG Vent. Rate : 068 BPM Atrial Rate : 068 BPM P-R Int : 166 ms QRS Dur : 078 ms QT Int : 398 ms P-R-T Axes : 047 -25 002 degrees QTc Int : 423 ms NORMAL SINUS RHYTHM NORMAL ECG Confirmed by MD CEDENO GREGORY ([id number]) on 06/05/2018 12:00:06 PM Referred By: Confirmed By:LIDIA CEDENO MD
[2018-06-05] MEDS ORDERED: ONDANSETRON 4 MG/2 ML VIAL IVPUSH PRN (15:38)
[2018-06-05] MEDS: SODIUM CHLORIDE 0.45% 1,000 ML IV SCH (16:00)
[2018-06-05 16:58] LABS: URINE APPEARANCE CLEAR; URINE BILIRUBIN NEGATIVE (<2.0 mg/dL); URINE COLOR STRAW; URINE GLUCOSE (UA) 3+ (NEGATIVE); URINE KETONE NEGATIVE (NEGATIVE); URINE LEUK ESTERASE NEGATIVE (NEGATIVE); URINE NITRITE NEGATIVE (NEGATIVE); URINE PROTEIN NEGATIVE (NEGATIVE); URINE UROBILINOGEN NEGATIVE mg/dL (0.2-1.0)
[2018-06-05] MEDS: PANTOPRAZOLE 40 MG TABLET (FP) PO SCH (17:50)
[2018-06-05] MEDS ORDERED: INSULIN (NOVOLOG) ASPART 100 UNITS/ML 10ML VIAL ONE (18:09)
[2018-06-05] MEDS: INSULIN SLIDING SCALE (NOVOLOG) 1 VIAL SQ SCH ×2 (18:13→21:06)
--- NOTE | 2018-06-05 19:16 | HP ---
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 Cardiovascular: Yes: Aneurysm, HTN, Hyperlipdemia Pulmonary: Yes: COPD Renal/: Yes: BPH, Other (PROSTATE BX) Musculoskeletal: Yes: Chronic low back pain Endocrine: Yes: Diabetes Mellitus - Smoking History Smoking history: Never smoked Have you smoked in the past 12 months: No If you are a former smoker, when did you quit?: 30 years ago - Alcohol/Substance Use Hx Alcohol Use: No History of Substance Use: reports: None - Social History ADL: Independent History of Recent Travel: No Home Medications - Allergies Allergies/Adverse Reactions: Allergies Allergy/AdvReac Type Severity Reaction Status Date / Time No Known Allergies Allergy Verified 06/05/18 02:02 - Home Medications Home Medications: Ambulatory Orders Amlodipine Besylate [Norvasc -] 5 mg PO DAILY #0 tablet 03/29/17 Aspirin Coated [Ecotrin -] 81 mg PO DAILY #30 tablet.ec 03/14/18 Clopidogrel Bisulfate [Plavix -] 75 mg PO DAILY #30 tablet 03/14/18 Hydrochlorothiazide [Hctz -] 12.5 mg PO DAILY 06/05/18 Linagliptin/Metformin HCl [Jentadueto 2.5 mg-1000 mg Tab] 1 each PO DAILY Losartan Potassium 25 mg PO DAILY 06/05/18 Tamsulosin HCl 0.4 mg PO DAILY 06/05/18 Physical Examination Vital Signs: Vital Signs Temperature 98 F 06/05/18 12:30 Pulse Rate 58 L 06/05/18 12:30 Respiratory Rate 18 06/05/18 12:30 Blood Pressure 155/92 06/05/18 12:30 O2 Sat by Pulse Oximetry (%) 98 06/05/18 10:00 Labs: CBC, BMP 06/05/18 02:13 06/05/18 02:13
[2018-06-05 20:48] VITALS: BMI 27.8
[2018-06-06] MEDS: INSULIN SLIDING SCALE (NOVOLOG) 1 VIAL SQ SCH ×4 (06:04→21:40)
[2018-06-06] MEDS: LOSARTAN POTASSIUM 25 MG TABLET PO SCH (09:09)
[2018-06-06] MEDS: PANTOPRAZOLE 40 MG TABLET (FP) PO SCH (09:09)
[2018-06-06] MEDS: HYDROCHLOROTHIAZIDE 12.5 MG CAPSULE (FP) PO SCH (09:09)
[2018-06-06] MEDS: CLOPIDOGREL BISULFATE 75 MG TABLET (FP) PO SCH (09:09)
[2018-06-06] MEDS: amLODIPine BESYLATE 5 MG TABLET (FP) PO SCH (09:09)
[2018-06-06] MEDS: ASPIRIN COATED 81 MG TABLET.EC PO SCH (09:09)
[2018-06-06] MEDS: TAMSULOSIN HCL 0.4 MG CAP.ER.24H (FP) PO SCH (09:09)
[2018-06-06] MEDS ORDERED: ACETAMINOPHEN 325 MG TABLET (FP) PO PRN (11:43)
--- NOTE | 2018-06-06 13:06 | CONSULT ---
Consult Consult Specialty:: endocrine Referred by:: dr.rocco mackay Reason for Consultation:: diabetes mellitus uncontrolled - History of Present Illness Chief Complaint: weakness extreme and episodes of near syncope History of Present Illness: 73 year old male with a significant past medical history of DM, and HTN, Hyperlipidemia, COPD, Chronic low back pain, who presents to the ED with complaints of weakness that began while ago. Patient reports experiencing intermittent weakness that began several days ago as well as associated nausea , lightheadedness and unsteady walking. 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 Cardio/Vascular: Yes: Aneurysm, HTN, Hyperlipdemia Pulmonary: Yes: COPD Renal/: Yes: BPH, Other (PROSTATE BX) Musculoskeletal: Yes: Chronic low back pain Endocrine: Yes: Diabetes Mellitus - Alcohol/Substance Use Hx Alcohol Use: No History of Substance Use: reports: None - Smoking History Smoking history: Former smoker Have you smoked in the past 12 months: No If you are a former smoker, when did you quit?: 30 years ago - Social History ADL: Independent History of Recent Travel: No Home Medications - Allergies Allergies/Adverse Reactions: Allergies Allergy/AdvReac Type Severity Reaction Status Date / Time No Known Allergies Allergy Verified 06/05/18 02:02 - Home Medications Home Medications: Ambulatory Orders Amlodipine Besylate [Norvasc -] 5 mg PO DAILY #0 tablet 03/29/17 Aspirin Coated [Ecotrin -] 81 mg PO DAILY #30 tablet.ec 03/14/18 Clopidogrel Bisulfate [Plavix -] 75 mg PO DAILY #30 tablet 03/14/18 Hydrochlorothiazide [Hctz -] 12.5 mg PO DAILY 06/05/18 Linagliptin/Metformin HCl [Jentadueto 2.5 mg-1000 mg Tab] 1 each PO DAILY Losartan Potassium 25 mg PO DAILY 06/05/18 Tamsulosin HCl 0.4 mg PO DAILY 06/05/18 Review of Systems - Review of Systems Constitutional: reports: Lethargy, Weakness Eyes: reports: No Symptoms HENT: reports: No Symptoms Neck: reports: Tenderness Cardiovascular: reports: No Symptoms Respiratory: reports: No Symptoms Gastrointestinal: reports: No Symptoms Breasts: reports: No Symptoms Reported Musculoskeletal: reports: No Symptoms Neurological: reports: Pre-Existing Deficit, Weakness Physical Exam Vital Signs: Vital Signs Temperature 98.4 F 06/06/18 05:56 Pulse Rate 62 06/06/18 05:56 Respiratory Rate 20 06/06/18 05:56 Blood Pressure 140/73 06/06/18 05:56 O2 Sat by Pulse Oximetry (%) 98 06/05/18 20:51 Constitutional: Yes: Calm Eyes: Yes: EOM Intact HENT: Yes: Normocephalic Neck: Yes: Trachea Midline Cardiovascular: Yes: Regular Rate and Rhythm Respiratory: Yes: CTA Bilaterally Gastrointestinal: Yes: Normal Bowel Sounds Renal/: Yes: WNL Breast(s): Yes: WNL Musculoskeletal: Yes: WNL Extremities: Yes: WNL Integumentary: Yes: WNL Neurological: Yes: Alert, Oriented, Weakness Labs: CBC, BMP 06/05/18 02:13 06/05/18 02:13 Problem List - Problems (1) Hyperglycemia Code(s): R73.9 - HYPERGLYCEMIA, UNSPECIFIED (2) BPH (benign prostatic hyperplasia) Code(s): N40.0 - BENIGN PROSTATIC HYPERPLASIA WITHOUT LOWER URINRY TRACT SYMP (3) Back pain Code(s): M54.9 - DORSALGIA, UNSPECIFIED (4) Bandemia Code(s): D72.825 - BANDEMIA (5) COPD (chronic obstructive pulmonary disease) Code(s): J44.9 - CHRONIC OBSTRUCTIVE PULMONARY DISEASE, UNSPECIFIED (6) CVA (cerebral vascular accident) Code(s): I63.9 - CEREBRAL INFARCTION, UNSPECIFIED Qualifiers: Laterality of affected vessel: left Assessment/Plan Current Active Problems Hyperglycemia (Acute) Nausea and vomiting (Acute) hypertension hyperlipidemia diabetes mellitus uncontrolled Abnormal Lab Results 06/05/18 06/06/18 16:30 06:30 Hemoglobin A1c % 10.2 H D Urine Glucose (UA) 3+ H Laboratory Results - last 24 hr 06/05/18 06/05/18 06/05/18 16:30 17:43 21:05 POC Glucometer [id number] 235 Hemoglobin A1c % TSH Urine Color Straw Urine Appearance Clear Urine pH 7.0 Ur Specific [place] 1.010 Urine Protein Negative Urine Glucose (UA) 3+ H Urine Ketones Negative Urine Blood Negative Urine Nitrite Negative Urine Bilirubin Negative Urine Urobilinogen Negative Ur Leukocyte Esterase Negative 06/06/18 06/06/18 06/06/18 05:45 06:30 06:30 POC Glucometer 144 Hemoglobin A1c % 10.2 H D TSH 0.92 Urine Color Urine Appearance Urine pH Ur Specific [place] Urine Protein Urine Glucose (UA) Urine Ketones Urine Blood Urine Nitrite Urine Bilirubin Urine Urobilinogen Ur Leukocyte Esterase 06/06/18 12:03 POC Glucometer 227 Hemoglobin A1c % TSH Urine Color Urine Appearance Urine pH Ur Specific [place] Urine Protein Urine Glucose (UA) Urine Ketones Urine Blood Urine Nitrite Urine Bilirubin Urine Urobilinogen Ur Leukocyte Esterase plan: \neurology consult ck carotid doppler janumet 50/1000mg bid glimiperide 2mg daily diet
[2018-06-06] MEDS: metFORMIN HCL 500 MG TABLET (FP) PO SCH (16:48)
[2018-06-06] MEDS: SODIUM CHLORIDE 0.45% 1,000 ML IV SCH (16:50)
--- NOTE | 2018-06-06 19:29 | PN ---
Progress Note, Physician - Current Medication List Current Medications: Active Medications Acetaminophen (Tylenol -) 650 mg PO Q6H PRN PRN Reason: PAIN LEVEL 1-5 Amlodipine Besylate (Norvasc -) 5 mg PO DAILY [facility] Last Admin: 06/06/18 09:09 Dose: 5 mg Aspirin (Ecotrin -) 81 mg PO DAILY [facility] Last Admin: 06/06/18 09:09 Dose: 81 mg Clopidogrel Bisulfate (Plavix -) 75 mg PO DAILY [facility] Last Admin: 06/06/18 09:09 Dose: 75 mg Glimepiride (Amaryl -) 2 mg PO DAILY@0700 [facility] Hydrochlorothiazide (Hctz -) 12.5 mg PO DAILY [facility] Last Admin: 06/06/18 09:09 Dose: 12.5 mg Sodium Chloride (1/2 Normal Saline) 1,000 mls @ 75 mls/hr IV ASDIR [facility] Last Admin: 06/06/18 16:50 Dose: 75 mls/hr Insulin Aspart (Novolog Vial Sliding Scale -) 1 vial SQ ACHS [facility]; Protocol Last Admin: 06/06/18 16:42 Dose: 8 units Losartan Potassium (Cozaar -) 25 mg PO DAILY [facility] Last Admin: 06/06/18 09:09 Dose: 25 mg Metformin HCl (Glucophage -) 1,000 mg PO BID@0700,1630 [facility] Last Admin: 06/06/18 16:48 Dose: 1,000 mg Ondansetron HCl (Zofran Injection) 4 mg IVPUSH Q6H PRN PRN Reason: NAUSEA AND/OR VOMITING Pantoprazole Sodium (Protonix -) 40 mg PO DAILY [facility] Last Admin: 06/06/18 09:09 Dose: 40 mg Sitagliptin Phosphate (Januvia -) 100 mg PO DAILY@0700 [facility] Tamsulosin HCl (Flomax -) 0.4 mg PO DAILY [facility] Last Admin: 06/06/18 09:09 Dose: 0.4 mg - Objective Vital Signs: Vital Signs Temperature 98.4 F 06/06/18 05:56 Pulse Rate 62 06/06/18 05:56 Respiratory Rate 20 06/06/18 09:00 Blood Pressure 140/73 06/06/18 05:56 O2 Sat by Pulse Oximetry (%) 96 06/06/18 09:00 Labs: CBC, BMP 06/05/18 02:13 06/05/18 02:13 INR, PTT INR 0.98 (0.82-1.09) 06/05/18 02:13
[2018-06-06] MEDS: HEPARIN NA (PORCINE) 5,000 UNITS/ML 1ML VIAL SQ SCH (21:41)
[2018-06-07] MEDS: GLIMEPIRIDE 2 MG TABLET (FP) PO SCH (06:21)
[2018-06-07] MEDS: sitaGLIPtin PHOSPHATE 100 MG TABLET (FP) PO SCH (06:21)
[2018-06-07] MEDS: metFORMIN HCL 500 MG TABLET (FP) PO SCH ×2 (06:21→17:23)
[2018-06-07] MEDS: INSULIN SLIDING SCALE (NOVOLOG) 1 VIAL SQ SCH ×4 (06:23→21:48)
[2018-06-07] MEDS ORDERED: INSULIN (NOVOLOG) ASPART 100 UNITS/ML 10ML VIAL ONE (06:36)
[2018-06-07 07:35] LABS: BASO % 1.4 % (0-2.0); EOS % 8.9 % (0-4.5); HEMATOCRIT 38.2 % (35.4-49); HEMOGLOBIN 13.2 GM/dL (11.7-16.9); LYMPH % 21.8 % (8-40); MCH 27.9 pg (25.7-33.7); MCHC 34.6 g/dl (32.0-35.9); MEAN CELL VOLUME 80.7 fl (80-96); MEAN PLT VOLUME 8.9 fl (7.5-11.1); MONO % 8.5 % (3.8-10.2); NEUT % 59.4 % (42.8-82.8); PLATELET COUNT 228 K/MM3 (134-434); RBC 4.74 M/mm3 (4.00-5.60)
[2018-06-07 08:01] LABS: ALBUMIN 3.4 g/dl (3.4-5.0); ANION GAP 9 (8-16); BLOOD UREA NITROGEN 20 mg/dL (7-18); CALCIUM 8.7 mg/dL (8.5-10.1); CHLORIDE 101 mmol/L (98-107); CO2 30 mmol/L (21-32); GLUCOSE,RANDOM 204 mg/dL (74-106); POTASSIUM 3.9 mmol/L (3.5-5.1); SGOT/AST 12 U/L (15-37); SGPT/ALT 21 U/L (12-78); SODIUM 140 mmol/L (136-145)
[2018-06-07 08:03] LABS: ALK PHOS 69 U/L (45-117); BILIRUBIN,TOTAL 0.6 mg/dL (0.2-1.0); TOT PROT 6.4 g/dl (6.4-8.2)
--- NOTE | 2018-06-07 09:33 | CONSULT ---
Consult - text type - Consultation Consultation Note: NEUROLOGY CONSULTATION is greatly appreciated: This 73 yo RH man lives with his cousin. 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 PMH sig for HTN, DM, Chol, and ASVD. Maintained on: Amlodipine Besylate; Aspirin 81; Clopidogrel; Hydrochlorothiazide ; Linagliptin/Metformin; Losartan; and Tamsulosin. Has felt unwell since his CEA with periods of waxing and waning dizziness, unsteadiness, nausea, forgetfulness and confusion. Admitted now after a three day exacerbation of these symptoms with blood glucose =344 mg%. Denies numbness and tingling in the feet but acknowledges numbness, pain and weakness in his hands (R>>L). CT and MRI of brain (reviewed): Mild atrophy and scattered microvascular changes. Empty sella syndrome. Probably normal for age. MARCIO: BP 160/90. s/p Left CEA. No bruits. Cor reg. Nl DP pulses. + Tinel's on the right NEURO: Awake, alert. MS/speech are normal. Depressed affect. Somewhat withdrawn CN II-XII: Normal without nystagmus. Motor: No drift. Episodic sustention tremor. Mild cogwheeling. Normal strength except Right APB and grasp. Slightly reduced JESSIE's (R>L). Normal reflexes including AJ' s. Downgoing toes. Coord: No FTN dystaxia Sensory: Normal vibration in feet. Decreased pin in both hands ( median distribution). Romberg neg. Gait: Sl. shuffle. Stable. IMP: Non-focal neuro exam. S/P Left Carotid Endarectomy. 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 Probable B/L Carpal Tunnel Syndromes (R>L). No evidence for diabetic peripheral neuropathy. Recent worsening probably due to Toxic-metabolic encephalopathy ( Hyperglycemia). Probable underlying depression. SUGGEST: Check B12, TSH. Improve BP and Glucose control and encourage home monitoring. Continue Clopidogrel (75 mg) and ASA (81 mg). Rx Depression. Neuro f/u and EMG/NCS as out patient to eval and treat hand complaints. Thank you very much, Chacho Ivan MD
[2018-06-07] MEDS: CLOPIDOGREL BISULFATE 75 MG TABLET (FP) PO SCH (09:45)
[2018-06-07] MEDS: HEPARIN NA (PORCINE) 5,000 UNITS/ML 1ML VIAL SQ SCH ×2 (09:45→21:47)
[2018-06-07] MEDS: TAMSULOSIN HCL 0.4 MG CAP.ER.24H (FP) PO SCH (09:45)
[2018-06-07] MEDS: HYDROCHLOROTHIAZIDE 12.5 MG CAPSULE (FP) PO SCH (09:45)
[2018-06-07] MEDS: ASPIRIN COATED 81 MG TABLET.EC PO SCH (09:45)
[2018-06-07] MEDS: LOSARTAN POTASSIUM 25 MG TABLET PO SCH (09:45)
[2018-06-07] MEDS: PANTOPRAZOLE 40 MG TABLET (FP) PO SCH (09:45)
[2018-06-07] MEDS: amLODIPine BESYLATE 5 MG TABLET (FP) PO SCH (09:45)
[2018-06-07] MEDS: CITALOPRAM HYDROBROMIDE 10 MG TABLET (FP) PO SCH (12:05)
--- NOTE | 2018-06-07 13:03 | ECHO ---
Name: YELENA HAIYE, ALLEN Study Date: 06/07/2018 10:23 AM Reason For Study: CVA Height: 65 in Weight: 167 lb BSA IVSd 1.0cm Ao root diam3.0cm LVIDd 4.4cm LA dimension 3.5cm LVIDs 3.2cm LVPWd 0.89cm EDV(Teich) 86.0ml TAPSE 2.0cm ESV(Teich) 41.7ml RV S Darin 14.1cm/sec MV E max darin 48.9cm/sec Med Peak E' Darin 3.4 cm/sec MV A max darin 75.5cm/sec Med E/e' 14.4 MV E/A 0.65 Lat Peak E' Vel5.2cm /sec MV dec time 0.26sec Lat E/e'9.5
[2018-06-07] MEDS: SODIUM CHLORIDE 0.45% 1,000 ML IV SCH (17:04)
--- NOTE | 2018-06-07 19:35 | PN ---
Progress Note, Physician - Current Medication List Current Medications: Active Medications Acetaminophen (Tylenol -) 650 mg PO Q6H PRN PRN Reason: PAIN LEVEL 1-5 Amlodipine Besylate (Norvasc -) 5 mg PO DAILY [facility] Last Admin: 06/07/18 09:45 Dose: 5 mg Aspirin (Ecotrin -) 81 mg PO DAILY [facility] Last Admin: 06/07/18 09:45 Dose: 81 mg Citalopram Hydrobromide (Celexa -) 10 mg PO DAILY [facility] Last Admin: 06/07/18 12:05 Dose: 10 mg Clopidogrel Bisulfate (Plavix -) 75 mg PO DAILY [facility] Last Admin: 06/07/18 09:45 Dose: 75 mg Glimepiride (Amaryl -) 2 mg PO DAILY@0700 [facility] Last Admin: 06/07/18 06:21 Dose: 2 mg Heparin Sodium (Porcine) (Heparin -) 5,000 unit SQ BID [facility] Last Admin: 06/07/18 09:45 Dose: 5,000 unit Hydrochlorothiazide (Hctz -) 12.5 mg PO DAILY [facility] Last Admin: 06/07/18 09:45 Dose: 12.5 mg Sodium Chloride (1/2 Normal Saline) 1,000 mls @ 75 mls/hr IV ASDIR [facility] Last Admin: 06/07/18 17:04 Dose: Not Given Insulin Aspart (Novolog Vial Sliding Scale -) 1 vial SQ ACHS [facility]; Protocol Last Admin: 06/07/18 17:04 Dose: Not Given Losartan Potassium (Cozaar -) 25 mg PO DAILY [facility] Last Admin: 06/07/18 09:45 Dose: 25 mg Metformin HCl (Glucophage -) 1,000 mg PO BID@0700,1630 [facility] Last Admin: 06/07/18 17:23 Dose: 1,000 mg Ondansetron HCl (Zofran Injection) 4 mg IVPUSH Q6H PRN PRN Reason: NAUSEA AND/OR VOMITING Pantoprazole Sodium (Protonix -) 40 mg PO DAILY [facility] Last Admin: 06/07/18 09:45 Dose: 40 mg Sitagliptin Phosphate (Januvia -) 100 mg PO DAILY@0700 [facility] Last Admin: 06/07/18 06:21 Dose: 100 mg Tamsulosin HCl (Flomax -) 0.4 mg PO DAILY [facility] Last Admin: 06/07/18 09:45 Dose: 0.4 mg - Objective Vital Signs: Vital Signs Temperature 98.1 F 06/07/18 05:59 Pulse Rate 62 06/07/18 05:59 Respiratory Rate 17 06/07/18 05:59 Blood Pressure 140/71 06/07/18 05:59 O2 Sat by Pulse Oximetry (%) 96 06/06/18 20:19 Labs: CBC, BMP 06/07/18 06:30 06/07/18 06:30 INR, PTT INR 0.98 (0.82-1.09) 06/05/18 02:13
[2018-06-07] MEDS ORDERED: MINERAL OIL ENEMA 133 ML ENEMA PR ONE (22:49)
[2018-06-08] MEDS: INSULIN SLIDING SCALE (NOVOLOG) 1 VIAL SQ SCH ×2 (06:00→11:52)
[2018-06-08] MEDS: DOCUSATE SODIUM 100 MG CAPSULE (FP) PO SCH ×2 (06:00→14:39)
[2018-06-08] MEDS ORDERED: PT OWN MED DRAWER 7, Y5N ONE (06:03)
[2018-06-08] MEDS: GLIMEPIRIDE 2 MG TABLET (FP) PO SCH (06:04)
[2018-06-08] MEDS: metFORMIN HCL 500 MG TABLET (FP) PO SCH (06:04)
[2018-06-08] MEDS: sitaGLIPtin PHOSPHATE 100 MG TABLET (FP) PO SCH (06:04)
[2018-06-08] MEDS: amLODIPine BESYLATE 5 MG TABLET (FP) PO SCH (09:23)
[2018-06-08] MEDS: ASPIRIN COATED 81 MG TABLET.EC PO SCH (09:23)
[2018-06-08] MEDS: HYDROCHLOROTHIAZIDE 12.5 MG CAPSULE (FP) PO SCH (09:23)
[2018-06-08] MEDS: PANTOPRAZOLE 40 MG TABLET (FP) PO SCH (09:23)
[2018-06-08] MEDS: HEPARIN NA (PORCINE) 5,000 UNITS/ML 1ML VIAL SQ SCH (09:23)
[2018-06-08] MEDS: CLOPIDOGREL BISULFATE 75 MG TABLET (FP) PO SCH (09:24)
[2018-06-08] MEDS: CITALOPRAM HYDROBROMIDE 10 MG TABLET (FP) PO SCH (09:24)
[2018-06-08] MEDS: TAMSULOSIN HCL 0.4 MG CAP.ER.24H (FP) PO SCH (09:24)
[2018-06-08] MEDS: LOSARTAN POTASSIUM 25 MG TABLET PO SCH (09:24)
[2018-06-08] MEDS ORDERED: INSULIN (NOVOLOG) ASPART 100 UNITS/ML 10ML VIAL ONE (11:51)
[2018-06-08 16:56] VITALS: BP 140/85; PULSE 66; TEMP 97.8
--- NOTE | 2018-06-10 23:02 | DS ---
Physical Examination Vital Signs: Vital Signs Temperature 97.8 F 06/08/18 16:00 Pulse Rate 66 06/08/18 16:00 Respiratory Rate 20 06/08/18 16:00 Blood Pressure 140/85 06/08/18 16:00 O2 Sat by Pulse Oximetry (%) 98 06/08/18 09:00 Labs: CBC, BMP 06/07/18 06:30 06/07/18 06:30 Discharge Summary Reason For Visit: HYPERGLYCEMIA, NAUSEA AND VOMITING Condition: Good - Instructions Diet, Activity, Other Instructions: 2 gram sodium and 2200 calorie diabetic diet See Dr Virgil Mercedes in 1 week Referrals: Virgil Mercedes MD [Primary Care Provider] - Disposition: HOME - Home Medications Comprehensive Discharge Medication List: Ambulatory Orders Amlodipine Besylate [Norvasc -] 5 mg PO DAILY #0 tablet 03/29/17 Aspirin Coated [Ecotrin -] 81 mg PO DAILY #30 tablet.ec 03/14/18 Clopidogrel Bisulfate [Plavix -] 75 mg PO DAILY #30 tablet 03/14/18 Hydrochlorothiazide [Hctz -] 12.5 mg PO DAILY 06/05/18 Linagliptin/Metformin HCl [Jentadueto 2.5 mg-1000 mg Tab] 1 each PO DAILY Losartan Potassium 25 mg PO DAILY 06/05/18 Tamsulosin HCl 0.4 mg PO DAILY 06/05/18 Citalopram Hydrobromide [Celexa -] 10 mg PO DAILY #30 tablet 06/08/18 Docusate Sodium [Colace -] 100 mg PO TID #90 capsule 06/08/18 Glimepiride [Amaryl -] 2 mg PO DAILY@0700 #30 tablet 06/08/18
== END 2018-06-08 16:00 | disposition home or self-care (01) | DRG 637 ==
LOC: JER 23:28 → JERBED 06-05 08:11 → J6S 06-05 20:30
PROVIDERS: ADMIT Internal Medicine; ATTEND Internal Medicine
DX: E11.65 Type 2 diabetes mellitus with hyperglycemia (principal); G93.41 Metabolic encephalopathy; I25.10 Atherosclerotic heart disease of native coronary artery without angina pectoris; I10 Essential (primary) hypertension; N40.0 Benign prostatic hyperplasia without lower urinary tract symptoms; F03.90 Unspecified dementia, unspecified severity, without behavioral disturbance, psychotic disturbance, mood disturbance, and anxiety; E78.5 Hyperlipidemia, unspecified; Z87.891 Personal history of nicotine dependence; M54.5 Low back pain; J44.9 Chronic obstructive pulmonary disease, unspecified; Z79.84 Long term (current) use of oral hypoglycemic drugs; E23.6 Other disorders of pituitary gland
CPT/HCPCS: 36415; 70450-TC; 70551-TC; 71046-TC-FY; 80053; 81003; 82550; 82962; 83036; 83690; 83880; 84443; 84484; 85025; 85610; 87086; 93005; 93010; 93306-TC; 93880-TC; 99282-25; J1644; J7030

== ENCOUNTER 2019-07-06 10:51 | Emergency (ER) | payer OTHER, MEDICARE | END 2019-07-06 17:48 | disposition home or self-care (01) | LOC: JER 10:51 ==

== ENCOUNTER 2021-03-05 01:38 | Emergency (ER) | payer OTHER ==
[2021-03-05 02:30] VITALS: PULSE 79; TEMP 98.8; BMI 23.7
[2021-03-05 03:14] LABS: BASO % 0.6 % (0-2.0); EOS % 0.4 % (0-4.5); HEMATOCRIT 45.4 % (35.4-49); HEMOGLOBIN 15.2 GM/dL (11.7-16.9); LYMPH % 3.1 % (8-40); MCH 27.8 pg (25.7-33.7); MCHC 33.5 g/dl (32.0-35.9); MEAN CELL VOLUME 83.1 fl (80-96); MONO % 9.6 % (3.8-10.2); NEUT % 86.3 % (42.8-82.8); PLATELET COUNT 230 K/MM3 (134-434); RBC 5.47 M/mm3 (4.00-5.60); RDW 13.9 % (11.9-15.9); WHITE BLOOD COUNT 7.3 K/mm3 (4.0-10.0)
[2021-03-05 03:25] LABS: INR 1.06 (0.83-1.09)
[2021-03-05 03:27] LABS: ACTIVATED PTT 29.8 SECONDS (25.2-36.5)
[2021-03-05 03:42] LABS: CHLORIDE 100 mmol/L (98-107); SODIUM 134 mmol/L (136-145)
[2021-03-05 03:43] LABS: EPI CELLS 2 /uL (0-25.1); HYALINE CASTS 0 /uL (0-3.1); URINE APPEARANCE CLEAR; URINE BACTERIA 8 /uL (0-1359); URINE BILIRUBIN NEGATIVE (NEGATIVE); URINE COLOR YELLOW; URINE GLUCOSE (UA) 3+ (NEGATIVE); URINE KETONE NEGATIVE (NEGATIVE); URINE LEUK ESTERASE NEGATIVE (NEGATIVE); URINE NITRITE NEGATIVE (NEGATIVE); URINE PROTEIN 1+ (NEGATIVE); URINE RBC 7 /uL (0-23.9); URINE UROBILINOGEN 0.2 mg/dL (0.2-1.0); URINE WBC 1 /uL (0-25.8)
[2021-03-05 03:44] LABS: ALBUMIN 3.9 g/dl (3.4-5.0); ANION GAP 8 MMOL/L (8-16); BLOOD UREA NITROGEN 20.5 mg/dL (7-18); CALCIUM 9.4 mg/dL (8.5-10.1); CO2 26 mmol/L (21-32)
[2021-03-05 03:46] LABS: GLUCOSE,RANDOM 302 mg/dL (74-106)
[2021-03-05 03:48] LABS: BILIRUBIN,DIRECT 0.1 mg/dL (0.0-0.2); CREATININE 1.1 mg/dL (0.55-1.3); SGOT/AST 9 U/L (15-37); SGPT/ALT 16 U/L (13-61)
[2021-03-05 03:49] LABS: LDH 181 U/L (87-246)
[2021-03-05 03:50] LABS: ALK PHOS 92 U/L (45-117); BILIRUBIN,TOTAL 0.4 mg/dL (0.2-1); TOT PROT 7.6 g/dl (6.4-8.2)
[2021-03-05] MEDS ORDERED: ACETAMINOPHEN 500 MG TABLET (FP) PO ONE (04:49)
[2021-03-05] MEDS ORDERED: ACETAMINOPHEN 325 MG TABLET (FP) ONE (04:55)
[2021-03-05 05:32] VITALS: BP 155/78
== END 2021-03-05 05:29 | disposition home or self-care (01) ==
LOC: JER 01:38
DX: B34.9 Viral infection, unspecified (principal)
CPT/HCPCS: 36415; 71045-TC-FY; 80053; 81003; 82248; 82550; 82728; 83605; 83615; 84484; 85025; 85610; 85730; 86140; 87040; 87086; 87804; 93005; 93010; 99284-25; C9803; U0003; U0005

== ENCOUNTER 2021-03-09 14:51 | Emergency (ER) | payer OTHER ==
[2021-03-09 15:08] VITALS: BMI 26.6
[2021-03-09] MEDS ORDERED: BAMLANIVIMAB 700 MG, ETESEVIMAB 1,400 MG in SODIUM CHLORIDE 250 ML IVPB ONE (15:53)
[2021-03-09 17:28] LABS: BASO % 0.7 % (0-2.0); EOS % 0.1 % (0-4.5); HEMATOCRIT 42.8 % (35.4-49); HEMOGLOBIN 14.6 GM/dL (11.7-16.9); MCH 27.7 pg (25.7-33.7); MCHC 34.1 g/dl (32.0-35.9); MEAN CELL VOLUME 81.1 fl (80-96); MEAN PLT VOLUME 8.9 fl (7.5-11.1); MONO % 9.4 % (3.8-10.2); NEUT % 76.8 % (42.8-82.8); PLATELET COUNT 170 K/MM3 (134-434); RBC 5.28 M/mm3 (4.00-5.60); WHITE BLOOD COUNT 3.5 K/mm3 (4.0-10.0)
[2021-03-09 18:01] LABS: ALBUMIN 3.6 g/dl (3.4-5.0); BLOOD UREA NITROGEN 18.8 mg/dL (7-18)
[2021-03-09 18:06] LABS: BILIRUBIN,TOTAL 0.5 mg/dL (0.2-1); TOT PROT 7.2 g/dl (6.4-8.2)
[2021-03-09 18:16] VITALS: BP 111/60; PULSE 67; TEMP 98
[2021-03-09] MEDS ORDERED: SODIUM CHLORIDE 0.9% 500 ML INFUS.BAG IV ONE (18:40)
== END 2021-03-09 20:09 ==
LOC: JCOVINFU 14:51 → JER 14:51 → JCOVINFU 20:09
DX: U07.1 COVID-19 (principal)
CPT/HCPCS: 36415; 71046-TC-FY; 80053; 82962; 85025; 99284-25; M0239; Q0239; Q0245

== ENCOUNTER 2021-05-05 12:42 | Emergency (ER) | payer OTHER ==
[2021-05-05 12:50] VITALS: BP 191/93; PULSE 65; TEMP 98.1; BMI 25.8
[2021-05-05] MEDS ORDERED: DEXAMETHASONE SOD PHOSPHATE 10 MG/1 ML VIAL ONE (14:23)
== END 2021-05-05 13:55 | disposition home or self-care (01) ==
LOC: JERFT 12:42 → JER 12:42 → JERFT 13:55
PROC: 3E023GC Introduction of Other Therapeutic Substance into Muscle, Percutaneous Approach (ICD-10-PCS; principal; 2021-05-05)
DX: K13.0 Diseases of lips (principal)
CPT/HCPCS: 96372; 99284-25

== ENCOUNTER 2021-07-22 18:04 | Inpatient (IN) | payer OTHER ==
[2021-07-22] MEDS ORDERED: ACETAMINOPHEN 1000 MG/100 ML VIAL (NON FORMULARY) IVPB ONE (19:42)
[2021-07-22] MEDS ORDERED: amLODIPine BESYLATE 5 MG TABLET (FP) PO ONE (19:43)
[2021-07-22] MEDS ORDERED: SODIUM CHLORIDE 1,000 ML IV STA (19:43)
[2021-07-22] MEDS ORDERED: amLODIPine BESYLATE 5 MG TABLET (FP) ONE (20:24)
[2021-07-22] MEDS ORDERED: ACETAMINOPHEN INJECTION 100 ML IVPB ONE (20:24)
[2021-07-22 20:35] LABS: BASO % 1.3 % (0-2.0); EOS % 3.3 % (0-4.5); HEMATOCRIT 41.8 % (35.4-49); HEMOGLOBIN 14.4 GM/dL (11.7-16.9); LYMPH % 12.9 % (8-40); MCH 28.1 pg (25.7-33.7); MCHC 34.4 g/dl (32.0-35.9); MEAN CELL VOLUME 81.6 fl (80-96); MEAN PLT VOLUME 8.5 fl (7.5-11.1); MONO % 6.9 % (3.8-10.2); NEUT % 75.6 % (42.8-82.8); PLATELET COUNT 273 10^3/uL (134-434); RBC 5.13 M/mm3 (4.00-5.60); RDW 14.2 % (11.9-15.9); WHITE BLOOD COUNT 6.5 K/mm3 (4.0-10.0)
[2021-07-22 20:36] LABS: URINE APPEARANCE CLEAR; URINE BILIRUBIN NEGATIVE (NEGATIVE); URINE COLOR YELLOW; URINE GLUCOSE (UA) 3+ (NEGATIVE); URINE KETONE NEGATIVE (NEGATIVE); URINE LEUK ESTERASE NEGATIVE (NEGATIVE); URINE NITRITE NEGATIVE (NEGATIVE); URINE PROTEIN NEGATIVE (NEGATIVE); URINE UROBILINOGEN 0.2 mg/dL (0.2-1.0)
[2021-07-22 21:06] LABS: ALBUMIN 3.9 g/dl (3.4-5.0); BLOOD UREA NITROGEN 18.7 mg/dL (7-18); CALCIUM 9.3 mg/dL (8.5-10.1)
[2021-07-22 21:13] LABS: BILIRUBIN,TOTAL 0.5 mg/dL (0.2-1); TOT PROT 7.4 g/dl (6.4-8.2)
[2021-07-22] MEDS ORDERED: morphine CARPU-JECT 4 MG/1 ML DISP.SYRIN IVPUSH ONE (22:16)
[2021-07-23] MEDS ORDERED: morphine SULFATE 4 MG/ML VIAL ONE ×2 (01:03→06:54)
[2021-07-23] MEDS ORDERED: HYDROCHLOROTHIAZIDE 25 MG TABLET (FP) PO ONE (01:46)
[2021-07-23] MEDS ORDERED: HYDROCHLOROTHIAZIDE 25 MG TABLET (FP) ONE (01:52)
[2021-07-23] MEDS ORDERED: morphine CARPU-JECT 4 MG/1 ML DISP.SYRIN IVPUSH ONE (06:50)
[2021-07-23] MEDS ORDERED: MORPHINE SULFATE 2 MG/ML VIAL IVPUSH PRN (08:46)
[2021-07-23] MEDS ORDERED: amLODIPine BESYLATE 5 MG TABLET (FP) ONE (09:10)
[2021-07-23] MEDS ORDERED: NIFEdipine E.R. 30 MG TABLET ONE (09:10)
[2021-07-23] MEDS ORDERED: LOSARTAN POTASSIUM 50 MG TABLET ONE (09:11)
[2021-07-23] MEDS ORDERED: TAMSULOSIN HCL 0.4 MG CAP ONE (09:11)
[2021-07-23] MEDS: TAMSULOSIN HCL 0.4 MG CAP PO SCH (09:20)
[2021-07-23] MEDS: LOSARTAN POTASSIUM 25 MG TABLET PO SCH (09:21)
[2021-07-23] MEDS: NIFEdipine E.R. 30 MG TABLET PO SCH (09:21)
[2021-07-23] MEDS: amLODIPine BESYLATE 5 MG TABLET (FP) PO SCH (09:21)
[2021-07-23] MEDS: INSULIN SLIDING SCALE (NOVOLOG) 1 VIAL SQ SCH ×3 (11:07→21:03)
[2021-07-23] MEDS: DEXTROSE 5%-0.45% SALINE 1,000 ML IV SCH (13:05)
[2021-07-23 14:21] VITALS: BMI 25.9
[2021-07-23] MEDS: ATORVASTATIN CA 40 MG TABLET (FP) PO SCH (21:08)
[2021-07-24] MEDS: DEXTROSE 5%-0.45% SALINE 1,000 ML IV SCH ×3 (00:25→15:57)
[2021-07-24] MEDS: INSULIN SLIDING SCALE (NOVOLOG) 1 VIAL SQ SCH ×4 (06:10→21:08)
[2021-07-24 07:07] LABS: BASO % 0.7 % (0-2.0); EOS % 3.4 % (0-4.5); HEMATOCRIT 39.9 % (35.4-49); HEMOGLOBIN 13.9 GM/dL (11.7-16.9); LYMPH % 10.6 % (8-40); MCH 28.2 pg (25.7-33.7); MCHC 34.8 g/dl (32.0-35.9); MEAN CELL VOLUME 80.9 fl (80-96); MEAN PLT VOLUME 8.4 fl (7.5-11.1); NEUT % 77.3 % (42.8-82.8); PLATELET COUNT 281 10^3/uL (134-434); RBC 4.93 M/mm3 (4.00-5.60); RDW 13.6 % (11.9-15.9); WHITE BLOOD COUNT 7.1 K/mm3 (4.0-10.0)
[2021-07-24 07:31] LABS: CALCIUM 8.8 mg/dL (8.5-10.1)
[2021-07-24 07:33] LABS: ALBUMIN 3.2 g/dl (3.4-5.0); BLOOD UREA NITROGEN 17.4 mg/dL (7-18)
[2021-07-24 07:37] LABS: BILIRUBIN,TOTAL 0.6 mg/dL (0.2-1); TOT PROT 7.7 g/dl (6.4-8.2)
[2021-07-24] MEDS: NIFEdipine E.R. 30 MG TABLET PO SCH (10:39)
[2021-07-24] MEDS: amLODIPine BESYLATE 5 MG TABLET (FP) PO SCH (10:39)
[2021-07-24] MEDS: TAMSULOSIN HCL 0.4 MG CAP PO SCH (10:39)
[2021-07-24] MEDS: LOSARTAN POTASSIUM 25 MG TABLET PO SCH (10:39)
[2021-07-24] MEDS ORDERED: DEXTROSE 5%-WATER - 50 ML IVPB ONE (15:49)
[2021-07-24] MEDS ORDERED: cefTRIAXone SODIUM 1 GM VIAL ONE (15:49)
[2021-07-24] MEDS: CEFTRIAXONE 1 GM in DEXTROSE 5%-WATER - 50 ML IVPB SCH (15:55)
[2021-07-24] MEDS: VANCOMYCIN 1 GRAM (PRE-DOCKED) 1 GM/200 ML BAG IVPB SCH (16:46)
[2021-07-24] MEDS: ATORVASTATIN CA 40 MG TABLET (FP) PO SCH (21:02)
[2021-07-24] MEDS ORDERED: MELATONIN 5 MG TABLETS PO ONE (22:00)
[2021-07-25] MEDS: VANCOMYCIN 1 GRAM (PRE-DOCKED) 1 GM/200 ML BAG IVPB SCH ×2 (03:28→13:32)
[2021-07-25] MEDS: INSULIN SLIDING SCALE (NOVOLOG) 1 VIAL SQ SCH ×4 (06:10→21:09)
[2021-07-25] MEDS: TAMSULOSIN HCL 0.4 MG CAP PO SCH (08:12)
[2021-07-25] MEDS ORDERED: cefTRIAXone SODIUM 1 GM VIAL ONE (09:44)
[2021-07-25] MEDS ORDERED: DEXTROSE 5%-WATER - 50 ML IVPB ONE (09:45)
[2021-07-25] MEDS ORDERED: DOCUSATE SODIUM 100 MG CAPSULE (FP) PO ONE (09:45)
[2021-07-25] MEDS: NIFEdipine E.R. 30 MG TABLET PO SCH (09:51)
[2021-07-25] MEDS: CEFTRIAXONE 1 GM in DEXTROSE 5%-WATER - 50 ML IVPB SCH (09:52)
[2021-07-25] MEDS: LOSARTAN POTASSIUM 25 MG TABLET PO SCH (09:52)
[2021-07-25] MEDS: amLODIPine BESYLATE 5 MG TABLET (FP) PO SCH (09:52)
[2021-07-25 09:57] LABS: EOS % 4.6 % (0-4.5); HEMATOCRIT 41.5 % (35.4-49); HEMOGLOBIN 14.6 GM/dL (11.7-16.9); MCH 28.4 pg (25.7-33.7); MCHC 35.2 g/dl (32.0-35.9); MEAN CELL VOLUME 80.7 fl (80-96); MEAN PLT VOLUME 8.5 fl (7.5-11.1); MONO % 8.6 % (3.8-10.2); NEUT % 74.8 % (42.8-82.8); PLATELET COUNT 295 10^3/uL (134-434); RBC 5.14 M/mm3 (4.00-5.60); WHITE BLOOD COUNT 6.5 K/mm3 (4.0-10.0)
[2021-07-25 10:17] LABS: ALBUMIN 3.3 g/dl (3.4-5.0); BLOOD UREA NITROGEN 17.3 mg/dL (7-18); CALCIUM 8.7 mg/dL (8.5-10.1)
[2021-07-25 10:21] LABS: BILIRUBIN,TOTAL 0.9 mg/dL (0.2-1)
[2021-07-25 10:34] LABS: TOT PROT 7.3 g/dl (6.4-8.2)
[2021-07-25] MEDS: DEXTROSE 5%-0.45% SALINE 1,000 ML IV SCH (10:37)
[2021-07-25 13:27] LABS: INR 1.08 (0.83-1.09); PROTHROMBIN TIME (PATIENT) 13.2 SEC (9.7-13.0)
[2021-07-25 13:30] LABS: ACTIVATED PTT 28.9 SECONDS (25.2-36.5)
[2021-07-25] MEDS: ATORVASTATIN CA 40 MG TABLET (FP) PO SCH (21:10)
[2021-07-25] MEDS ORDERED: MELATONIN 5 MG TABLETS PO SCH (22:00)
[2021-07-26] MEDS: VANCOMYCIN 1 GRAM (PRE-DOCKED) 1 GM/200 ML BAG IVPB SCH ×2 (01:27→13:50)
[2021-07-26] MEDS: DEXTROSE 5%-0.45% SALINE 1,000 ML IV SCH ×2 (02:23→08:45)
[2021-07-26] MEDS: INSULIN SLIDING SCALE (NOVOLOG) 1 VIAL SQ SCH ×4 (06:14→21:15)
[2021-07-26] MEDS: TAMSULOSIN HCL 0.4 MG CAP PO SCH (08:35)
[2021-07-26] MEDS ORDERED: cefTRIAXone SODIUM 1 GM VIAL ONE (09:23)
[2021-07-26] MEDS ORDERED: DEXTROSE 5%-WATER - 50 ML IVPB ONE (09:23)
[2021-07-26] MEDS: CEFTRIAXONE 1 GM in DEXTROSE 5%-WATER - 50 ML IVPB SCH (09:29)
[2021-07-26] MEDS: amLODIPine BESYLATE 5 MG TABLET (FP) PO SCH (09:30)
[2021-07-26] MEDS: LOSARTAN POTASSIUM 25 MG TABLET PO SCH (09:30)
[2021-07-26] MEDS: NIFEdipine E.R. 30 MG TABLET PO SCH (09:31)
[2021-07-26 09:55] LABS: ALBUMIN 3.1 g/dl (3.4-5.0); BLOOD UREA NITROGEN 16.7 mg/dL (7-18); CALCIUM 8.7 mg/dL (8.5-10.1)
[2021-07-26 09:59] LABS: CREATININE 0.8 mg/dL (0.55-1.3)
[2021-07-26 10:00] LABS: BILIRUBIN,TOTAL 0.6 mg/dL (0.2-1); TOT PROT 6.4 g/dl (6.4-8.2)
[2021-07-26] MEDS ORDERED: INSULIN SLIDING SCALE (NOVOLOG) 1 VIAL SQ ONE (10:53)
[2021-07-26] MEDS: KCL 10 MEQ IVPB 10 MEQ/100 ML INFUS.BAG IVPB SCH ×3 (12:04→21:00)
[2021-07-26] MEDS ORDERED: MIDAZOLAM HCL 2 MG/2 ML SINGLE DOSE VIAL ONE (14:01)
[2021-07-26] MEDS ORDERED: ONDANSETRON 4 MG/2 ML VIAL IVPUSH PRN ×2 (14:11→16:59)
[2021-07-26] MEDS ORDERED: LACTATED RINGERS SOLUTION 1,000 ML IV SCH ×2 (14:15→16:26)
[2021-07-26] MEDS ORDERED: LIDOCAINE HCL 1%, 10 MG/ML (20ML VIAL) ONE (14:18)
[2021-07-26] MEDS ORDERED: PROPOFOL 20 ML ONE (14:36)
[2021-07-26] MEDS ORDERED: LIDOCAINE HCL 1%, 10 MG/ML (20ML VIAL) PNB ONE (15:01)
[2021-07-26] MEDS ORDERED: oxyCODONE HCL 5 MG TABLET PO PRN (16:25)
[2021-07-26] MEDS ORDERED: hydrALAZINE HCL 20 MG/ML VIAL IVPUSH PRN (16:51)
[2021-07-26] MEDS ORDERED: LABETALOL HCL 5 MG/1 ML (100MG/20 ML VIAL) IVPUSH ONE (16:51)
[2021-07-26] MEDS ORDERED: hydrALAZINE HCL 20 MG/ML VIAL ONE (17:21)
[2021-07-26] MEDS ORDERED: HYDROmorphone HCl 2 MG/ML VIAL ONE (18:12)
[2021-07-26] MEDS: HYDROmorphone HCl 2 MG/ML VIAL IVPB ONE ×2 (18:23→19:33)
[2021-07-26] MEDS: oxyCODONE HCL 5 MG TABLET PO PRN (20:17)
[2021-07-26] MEDS: MELATONIN 5 MG TABLETS PO SCH (21:15)
[2021-07-26] MEDS: ATORVASTATIN CA 40 MG TABLET (FP) PO SCH (21:15)
[2021-07-26] MEDS ORDERED: VANCOMYCIN 1 GRAM (PRE-DOCKED) 1 GM/250 ML BAG IVPB SCH (22:00)
[2021-07-27] MEDS ORDERED: VANCOMYCIN 1 GRAM (PRE-DOCKED) 1 GM/250 ML BAG IVPB SCH (02:00)
[2021-07-27] MEDS: oxyCODONE HCL 5 MG TABLET PO PRN ×4 (05:42→21:44)
[2021-07-27] MEDS: INSULIN SLIDING SCALE (NOVOLOG) 1 VIAL SQ SCH ×4 (06:03→21:14)
[2021-07-27] MEDS: ACETAMINOPHEN 325 MG TABLET (FP) PO PRN ×2 (06:26→20:16)
[2021-07-27] MEDS: TAMSULOSIN HCL 0.4 MG CAP PO SCH (07:49)
[2021-07-27 08:47] LABS: BASO % 0.4 % (0-2.0); HEMOGLOBIN 13.1 GM/dL (11.7-16.9); LYMPH % 7.8 % (8-40); MCH 28.1 pg (25.7-33.7); MCHC 34.5 g/dl (32.0-35.9); MEAN CELL VOLUME 81.6 fl (80-96); MEAN PLT VOLUME 8.6 fl (7.5-11.1); MONO % 7.3 % (3.8-10.2); NEUT % 83.5 % (42.8-82.8); PLATELET COUNT 290 10^3/uL (134-434); RBC 4.66 M/mm3 (4.00-5.60); RDW 13.8 % (11.9-15.9); WHITE BLOOD COUNT 9.6 K/mm3 (4.0-10.0)
[2021-07-27 09:32] LABS: ALBUMIN 2.8 g/dl (3.4-5.0); BLOOD UREA NITROGEN 20.9 mg/dL (7-18)
[2021-07-27 09:34] LABS: CALCIUM 8.5 mg/dL (8.5-10.1)
[2021-07-27] MEDS: ENOXAPARIN NA (PORCINE) 40 MG/0.4 ML DISP.SYRIN SQ SCH (09:34)
[2021-07-27] MEDS: POLYETHYLENE GLYCOL (HEALTHYLAX) 3350 17 GM PACKET PO SCH (09:34)
[2021-07-27 09:35] LABS: CREATININE 0.9 mg/dL (0.55-1.3)
[2021-07-27] MEDS: NIFEdipine E.R. 30 MG TABLET PO SCH (09:35)
[2021-07-27] MEDS: amLODIPine BESYLATE 5 MG TABLET (FP) PO SCH (09:35)
[2021-07-27] MEDS: LOSARTAN POTASSIUM 25 MG TABLET PO SCH (09:35)
[2021-07-27 09:37] LABS: BILIRUBIN,TOTAL 0.4 mg/dL (0.2-1)
[2021-07-27] MEDS: MELATONIN 5 MG TABLETS PO SCH (21:13)
[2021-07-27] MEDS: ATORVASTATIN CA 40 MG TABLET (FP) PO SCH (21:13)
[2021-07-27] MEDS: DOCUSATE SODIUM 100 MG CAPSULE (FP) PO SCH (21:13)
[2021-07-28] MEDS: ACETAMINOPHEN 325 MG TABLET (FP) PO PRN ×2 (01:16→20:28)
[2021-07-28] MEDS: oxyCODONE HCL 5 MG TABLET PO PRN ×4 (03:35→22:07)
[2021-07-28] MEDS: INSULIN SLIDING SCALE (NOVOLOG) 1 VIAL SQ SCH ×4 (06:26→22:06)
[2021-07-28] MEDS: NIFEdipine E.R. 30 MG TABLET PO SCH (10:17)
[2021-07-28] MEDS: TAMSULOSIN HCL 0.4 MG CAP PO SCH (10:19)
[2021-07-28] MEDS: LOSARTAN POTASSIUM 25 MG TABLET PO SCH (10:19)
[2021-07-28] MEDS: amLODIPine BESYLATE 5 MG TABLET (FP) PO SCH (10:19)
[2021-07-28] MEDS: POLYETHYLENE GLYCOL (HEALTHYLAX) 3350 17 GM PACKET PO SCH (10:20)
[2021-07-28] MEDS: ENOXAPARIN NA (PORCINE) 40 MG/0.4 ML DISP.SYRIN SQ SCH (10:24)
[2021-07-28 10:42] LABS: BASO % 0.7 % (0-2.0); HEMATOCRIT 40.3 % (35.4-49); HEMOGLOBIN 13.7 GM/dL (11.7-16.9); LYMPH % 9.7 % (8-40); MCH 27.8 pg (25.7-33.7); MCHC 34.1 g/dl (32.0-35.9); MEAN CELL VOLUME 81.5 fl (80-96); MEAN PLT VOLUME 8.5 fl (7.5-11.1); MONO % 8.4 % (3.8-10.2); NEUT % 78.2 % (42.8-82.8); PLATELET COUNT 276 10^3/uL (134-434); RBC 4.94 M/mm3 (4.00-5.60); RDW 13.8 % (11.9-15.9); WHITE BLOOD COUNT 10.6 K/mm3 (4.0-10.0)
[2021-07-28 11:00] LABS: CHLORIDE 101 mmol/L (98-107); SODIUM 135 mmol/L (136-145)
[2021-07-28 11:02] LABS: CALCIUM 8.7 mg/dL (8.5-10.1)
[2021-07-28 11:03] LABS: ANION GAP 6 MMOL/L (8-16); CO2 28 mmol/L (21-32); GLUCOSE,RANDOM 172 mg/dL (74-106)
[2021-07-28 11:06] LABS: CREATININE 0.9 mg/dL (0.55-1.3); SGPT/ALT 14 U/L (13-61)
[2021-07-28 11:07] LABS: BILIRUBIN,TOTAL 0.7 mg/dL (0.2-1)
[2021-07-28 11:09] LABS: ALK PHOS 92 U/L (45-117)
[2021-07-28 11:12] LABS: TOT PROT 6.4 g/dl (6.4-8.2)
[2021-07-28 11:21] LABS: SGOT/AST < 3 U/L (15-37)
[2021-07-28] MEDS: MELATONIN 5 MG TABLETS PO SCH (22:06)
[2021-07-28] MEDS: DOCUSATE SODIUM 100 MG CAPSULE (FP) PO SCH (22:06)
[2021-07-28] MEDS: ATORVASTATIN CA 40 MG TABLET (FP) PO SCH (22:06)
[2021-07-28] MEDS ORDERED: PT OWN MED DRAWER 7, Y5N ONE (22:43)
[2021-07-29] MEDS: oxyCODONE HCL 5 MG TABLET PO PRN ×4 (05:29→23:36)
[2021-07-29] MEDS: INSULIN SLIDING SCALE (NOVOLOG) 1 VIAL SQ SCH ×4 (06:14→21:17)
[2021-07-29 09:09] LABS: BASO % 0.8 % (0-2.0); EOS % 4.6 % (0-4.5); HEMATOCRIT 37.6 % (35.4-49); HEMOGLOBIN 13.1 GM/dL (11.7-16.9); LYMPH % 7.7 % (8-40); MCH 28.3 pg (25.7-33.7); MCHC 34.8 g/dl (32.0-35.9); MEAN CELL VOLUME 81.2 fl (80-96); MEAN PLT VOLUME 8.6 fl (7.5-11.1); MONO % 9.4 % (3.8-10.2); NEUT % 77.5 % (42.8-82.8); PLATELET COUNT 281 10^3/uL (134-434); RBC 4.64 M/mm3 (4.00-5.60); RDW 13.7 % (11.9-15.9); WHITE BLOOD COUNT 8.2 K/mm3 (4.0-10.0)
[2021-07-29] MEDS: NIFEdipine E.R. 30 MG TABLET PO SCH (09:26)
[2021-07-29] MEDS: amLODIPine BESYLATE 5 MG TABLET (FP) PO SCH (09:26)
[2021-07-29] MEDS: TAMSULOSIN HCL 0.4 MG CAP PO SCH (09:26)
[2021-07-29] MEDS: LOSARTAN POTASSIUM 25 MG TABLET PO SCH (09:26)
[2021-07-29] MEDS: POLYETHYLENE GLYCOL (HEALTHYLAX) 3350 17 GM PACKET PO SCH (09:27)
[2021-07-29] MEDS: ENOXAPARIN NA (PORCINE) 40 MG/0.4 ML DISP.SYRIN SQ SCH (09:27)
[2021-07-29 09:38] LABS: CALCIUM 8.7 mg/dL (8.5-10.1)
[2021-07-29 09:39] LABS: BLOOD UREA NITROGEN 18.4 mg/dL (7-18)
[2021-07-29 09:41] LABS: CREATININE 0.8 mg/dL (0.55-1.3)
[2021-07-29 09:43] LABS: BILIRUBIN,TOTAL 0.7 mg/dL (0.2-1)
[2021-07-29 09:53] LABS: ALBUMIN 2.6 g/dl (3.4-5.0)
[2021-07-29] MEDS: MELATONIN 5 MG TABLETS PO SCH (21:17)
[2021-07-29] MEDS: ATORVASTATIN CA 40 MG TABLET (FP) PO SCH (21:17)
[2021-07-29] MEDS: DOCUSATE SODIUM 100 MG CAPSULE (FP) PO SCH (21:17)
[2021-07-30] MEDS: INSULIN SLIDING SCALE (NOVOLOG) 1 VIAL SQ SCH ×4 (06:02→22:54)
[2021-07-30] MEDS ORDERED: INSULIN (NOVOLOG MIX 70/30) 100 UNITS/ML MDV SQ ONE (07:00)
[2021-07-30] MEDS ORDERED: PT OWN MED DRAWER 7, Y5N ONE ×2 (07:01→10:06)
[2021-07-30] MEDS: TAMSULOSIN HCL 0.4 MG CAP PO SCH (08:45)
[2021-07-30] MEDS: oxyCODONE HCL 5 MG TABLET PO PRN ×2 (08:45→14:23)
[2021-07-30] MEDS: POLYETHYLENE GLYCOL (HEALTHYLAX) 3350 17 GM PACKET PO SCH (10:14)
[2021-07-30] MEDS: LOSARTAN POTASSIUM 25 MG TABLET PO SCH (10:14)
[2021-07-30] MEDS: NIFEdipine E.R. 30 MG TABLET PO SCH (10:14)
[2021-07-30] MEDS: amLODIPine BESYLATE 5 MG TABLET (FP) PO SCH (10:14)
[2021-07-30] MEDS: ENOXAPARIN NA (PORCINE) 40 MG/0.4 ML DISP.SYRIN SQ SCH (10:16)
[2021-07-30] MEDS ORDERED: SODIUM PHOSPHATE/NA BIPHOS 133 ML ENEMA PR ONE (22:32)
[2021-07-30] MEDS: MELATONIN 5 MG TABLETS PO SCH (22:50)
[2021-07-30] MEDS: ATORVASTATIN CA 40 MG TABLET (FP) PO SCH (22:50)
[2021-07-30] MEDS: DOCUSATE SODIUM 100 MG CAPSULE (FP) PO SCH (22:51)
[2021-07-31] MEDS: ACETAMINOPHEN 1000 MG/100 ML VIAL (NON FORMULARY) IVPB PRN ×3 (00:03→17:27)
[2021-07-31] MEDS: INSULIN SLIDING SCALE (NOVOLOG) 1 VIAL SQ SCH ×4 (06:00→21:12)
[2021-07-31 09:02] LABS: BASO % 0.7 % (0-2.0); EOS % 7.2 % (0-4.5); HEMATOCRIT 36.2 % (35.4-49); HEMOGLOBIN 12.7 GM/dL (11.7-16.9); LYMPH % 8.6 % (8-40); MCH 28.3 pg (25.7-33.7); MCHC 35.2 g/dl (32.0-35.9); MEAN CELL VOLUME 80.5 fl (80-96); MEAN PLT VOLUME 8.2 fl (7.5-11.1); MONO % 9.1 % (3.8-10.2); NEUT % 74.4 % (42.8-82.8); PLATELET COUNT 316 10^3/uL (134-434); RDW 13.3 % (11.9-15.9); WHITE BLOOD COUNT 6.6 K/mm3 (4.0-10.0)
[2021-07-31 09:23] LABS: ALBUMIN 2.5 g/dl (3.4-5.0)
[2021-07-31 09:24] LABS: BLOOD UREA NITROGEN 16.3 mg/dL (7-18)
[2021-07-31 09:25] LABS: CALCIUM 8.3 mg/dL (8.5-10.1)
[2021-07-31 09:26] LABS: TOT PROT 5.7 g/dl (6.4-8.2)
[2021-07-31 09:27] LABS: CREATININE 0.7 mg/dL (0.55-1.3)
[2021-07-31] MEDS: ENOXAPARIN NA (PORCINE) 40 MG/0.4 ML DISP.SYRIN SQ SCH (09:53)
[2021-07-31] MEDS: NIFEdipine E.R. 30 MG TABLET PO SCH (09:53)
[2021-07-31] MEDS: LOSARTAN POTASSIUM 25 MG TABLET PO SCH (09:53)
[2021-07-31] MEDS: TAMSULOSIN HCL 0.4 MG CAP PO SCH (09:53)
[2021-07-31] MEDS: amLODIPine BESYLATE 5 MG TABLET (FP) PO SCH (09:53)
[2021-07-31] MEDS: POLYETHYLENE GLYCOL (HEALTHYLAX) 3350 17 GM PACKET PO SCH (09:54)
[2021-07-31] MEDS ORDERED: KETOROLAC TROMETHAMINE 15 MG/ML VIAL IVPUSH ONE (11:15)
[2021-07-31] MEDS: ATORVASTATIN CA 40 MG TABLET (FP) PO SCH (21:12)
[2021-07-31] MEDS: MELATONIN 5 MG TABLETS PO SCH (21:12)
[2021-07-31] MEDS: DOCUSATE SODIUM 100 MG CAPSULE (FP) PO SCH (21:12)
[2021-08-01] MEDS ORDERED: ACETAMINOPHEN 1000 MG/100 ML VIAL (NON FORMULARY) IVPB PRN (05:19)
[2021-08-01] MEDS: INSULIN SLIDING SCALE (NOVOLOG) 1 VIAL SQ SCH ×2 (06:52→12:18)
[2021-08-01 06:58] VITALS: TEMP 97.8
[2021-08-01] MEDS: ENOXAPARIN NA (PORCINE) 40 MG/0.4 ML DISP.SYRIN SQ SCH (09:50)
[2021-08-01] MEDS: NIFEdipine E.R. 30 MG TABLET PO SCH (09:50)
[2021-08-01] MEDS: TAMSULOSIN HCL 0.4 MG CAP PO SCH (09:50)
[2021-08-01] MEDS: POLYETHYLENE GLYCOL (HEALTHYLAX) 3350 17 GM PACKET PO SCH (09:50)
[2021-08-01] MEDS: amLODIPine BESYLATE 5 MG TABLET (FP) PO SCH (09:50)
[2021-08-01] MEDS: LOSARTAN POTASSIUM 25 MG TABLET PO SCH (09:50)
[2021-08-01 09:57] VITALS: BP 149/73; PULSE 62
== END 2021-08-01 15:09 | disposition home or self-care (01) | DRG 358 ==
LOC: JER 18:04 → JERBED 07-23 03:03 → J5S 07-23 12:34
PROVIDERS: ADMIT Internal Medicine; ATTEND Internal Medicine
PROC: 0YB50ZZ Excision of Right Inguinal Region, Open Approach (ICD-10-PCS; principal; 2021-07-26 14:30)
DX: R19.09 Other intra-abdominal and pelvic swelling, mass and lump (principal); E11.9 Type 2 diabetes mellitus without complications; I10 Essential (primary) hypertension; E78.5 Hyperlipidemia, unspecified; R19.7 Diarrhea, unspecified; I25.10 Atherosclerotic heart disease of native coronary artery without angina pectoris; N40.0 Benign prostatic hyperplasia without lower urinary tract symptoms; J44.9 Chronic obstructive pulmonary disease, unspecified; Z79.84 Long term (current) use of oral hypoglycemic drugs
CPT/HCPCS: 36415; 71045-TC-FY; 74177-TC; 76870-TC; 80053; 81003; 82962; 83036; 83605; 85025; 85610; 85730; 87086; 93005; 93010; 94760; 97116-GP; 97161-GP; 99285-25; C9803; J0131; Q9967; U0003; U0005

== ENCOUNTER 2021-10-18 13:24 | Inpatient (IN) | payer OTHER ==
[2021-10-18 15:39] LABS: BASO % 1.2 % (0-2.0); EOS % 2.8 % (0-4.5); HEMATOCRIT 42.2 % (35.4-49); HEMOGLOBIN 14.2 GM/dL (11.7-16.9); LYMPH % 15.3 % (8-40); MCH 27.6 pg (25.7-33.7); MCHC 33.7 g/dl (32.0-35.9); MEAN CELL VOLUME 81.9 fl (80-96); MEAN PLT VOLUME 8.9 fl (7.5-11.1); MONO % 7.1 % (3.8-10.2); NEUT % 73.6 % (42.8-82.8); PLATELET COUNT 244 10^3/uL (134-434); RBC 5.16 M/mm3 (4.00-5.60); RDW 15.2 % (11.9-15.9); WHITE BLOOD COUNT 5.4 K/mm3 (4.0-10.0)
[2021-10-18 15:44] LABS: INR 1.02 (0.83-1.09); PROTHROMBIN TIME (PATIENT) 11.9 SEC (9.7-13.0)
[2021-10-18 15:47] LABS: ACTIVATED PTT 28.7 SECONDS (25.2-36.5)
[2021-10-18 15:58] LABS: CHLORIDE 105 mmol/L (98-107); SODIUM 138 mmol/L (136-145)
[2021-10-18 16:00] LABS: CALCIUM 8.9 mg/dL (8.5-10.1)
[2021-10-18 16:01] LABS: ALBUMIN 3.7 g/dl (3.4-5.0); ANION GAP 6 MMOL/L (8-16); BLOOD UREA NITROGEN 22.4 mg/dL (7-18); CO2 27 mmol/L (21-32); GLUCOSE,RANDOM 216 mg/dL (74-106)
[2021-10-18 16:03] LABS: SGOT/AST 12 U/L (15-37); SGPT/ALT 16 U/L (13-61)
[2021-10-18 16:04] LABS: CHOLESTEROL 148 mg/dL (50-200); CREATININE 0.9 mg/dL (0.55-1.3); TRIGLYCERIDES 119 mg/dL (0-150)
[2021-10-18 16:05] LABS: ALK PHOS 85 U/L (45-117); BILIRUBIN,TOTAL 0.4 mg/dL (0.2-1); HDL CHOLESTEROL 42 mg/dL (40-60); TOT PROT 7.2 g/dl (6.4-8.2)
[2021-10-18 16:09] LABS: LDL CHOLESTEROL (ONLY SJRH) 76 mg/dL (5-100)
[2021-10-18 16:33] LABS: EPI CELLS 1 /uL (0-25.1); HYALINE CASTS 0 /uL (0-3.1); URINE APPEARANCE CLEAR; URINE BACTERIA 0 /uL (0-1359); URINE BILIRUBIN NEGATIVE (NEGATIVE); URINE COLOR YELLOW; URINE GLUCOSE (UA) 3+ (NEGATIVE); URINE KETONE NEGATIVE (NEGATIVE); URINE LEUK ESTERASE NEGATIVE (NEGATIVE); URINE NITRITE NEGATIVE (NEGATIVE); URINE PROTEIN 1+ (NEGATIVE); URINE RBC 2 /uL (0-23.9); URINE UROBILINOGEN 0.2 mg/dL (0.2-1.0); URINE WBC 1 /uL (0-25.8)
[2021-10-18] MEDS ORDERED: ATORVASTATIN CA 80 MG TABLET (FP) PO ONE (17:47)
[2021-10-18] MEDS ORDERED: ATORVASTATIN CA 80 MG TABLET (FP) ONE (19:47)
[2021-10-18] MEDS ORDERED: ACETAMINOPHEN 325 MG TABLET (FP) PO ONE (19:59)
[2021-10-18] MEDS ORDERED: ACETAMINOPHEN 325 MG TABLET (FP) ONE (20:01)
[2021-10-18] MEDS ORDERED: MUPIROCIN 2% TOPICAL OINTMENT FOR DECOLONIZATION NS SCH (22:30)
[2021-10-18] MEDS ORDERED: MECLIZINE HCL 25 MG TABLET (FP) PO PRN (22:41)
[2021-10-18] MEDS ORDERED: hydrALAZINE HCL 10 MG TABLET PO ONE (23:03)
[2021-10-18] MEDS ORDERED: NICARDIPINE 25 MG in DEXTROSE 5%-WATER - 240 ML IVPB SCH (23:30)
[2021-10-19] MEDS: NICARDIPINE 25 MG in DEXTROSE 5%-WATER - 240 ML IVPB SCH (01:51)
[2021-10-19] MEDS ORDERED: ACETAMINOPHEN 1000 MG/100 ML VIAL IVPB ONE (05:12)
[2021-10-19 06:41] LABS: BASO % 1.5 % (0-2.0); EOS % 5.9 % (0-4.5); HEMATOCRIT 41.6 % (35.4-49); HEMOGLOBIN 14.3 GM/dL (11.7-16.9); MCH 27.8 pg (25.7-33.7); MCHC 34.3 g/dl (32.0-35.9); MEAN PLT VOLUME 8.6 fl (7.5-11.1); MONO % 9.4 % (3.8-10.2); NEUT % 67.2 % (42.8-82.8); PLATELET COUNT 218 10^3/uL (134-434); RBC 5.13 M/mm3 (4.00-5.60); RDW 14.7 % (11.9-15.9); WHITE BLOOD COUNT 5.5 K/mm3 (4.0-10.0)
[2021-10-19] MEDS ORDERED: INSULIN SLIDING SCALE (NOVOLOG) 1 VIAL SQ SCH (07:00)
[2021-10-19] MEDS ORDERED: ENOXAPARIN NA (PORCINE) 40 MG/0.4 ML DISP.SYRIN SQ SCH (10:00)
[2021-10-19] MEDS ORDERED: POLYETHYLENE GLYCOL (HEALTHYLAX) 3350 17 GM PACKET PO SCH (10:00)
[2021-10-19] MEDS ORDERED: LOSARTAN POTASSIUM 25 MG TABLET PO SCH (10:00)
[2021-10-19] MEDS ORDERED: NIFEdipine E.R. 30 MG TABLET PO SCH (10:00)
[2021-10-19] MEDS ORDERED: amLODIPine BESYLATE 10 MG TABLET (FP) PO SCH (10:00)
[2021-10-19] MEDS ORDERED: ASPIRIN COATED 81 MG TABLET.EC PO SCH (10:00)
[2021-10-19] MEDS ORDERED: TAMSULOSIN HCL 0.4 MG CAP PO SCH (10:00)
[2021-10-19] MEDS: TAMSULOSIN HCL 0.4 MG CAP PO SCH (10:02)
[2021-10-19] MEDS: amLODIPine BESYLATE 5 MG TABLET (FP) PO SCH (10:02)
[2021-10-19] MEDS: POLYETHYLENE GLYCOL (HEALTHYLAX) 3350 17 GM PACKET PO SCH (10:26)
[2021-10-19] MEDS ORDERED: PT OWN MED DRAWER 7, Y5N ONE ×2 (11:19→12:53)
[2021-10-19] MEDS: MUPIROCIN 2% TOPICAL OINTMENT FOR DECOLONIZATION NS SCH ×2 (11:27→21:32)
[2021-10-19] MEDS: INSULIN SLIDING SCALE (NOVOLOG) 1 VIAL SQ SCH ×2 (16:56→21:26)
[2021-10-19 19:12] LABS: ALBUMIN 3.4 g/dl (3.4-5.0); BILIRUBIN,TOTAL 0.5 mg/dL (0.2-1); CALCIUM 8.8 mg/dL (8.5-10.1); CREATININE 0.8 mg/dL (0.55-1.3); TOT PROT 6.4 g/dl (6.4-8.2)
[2021-10-19 20:56] LABS: PHOSPHOROUS 2.7 mg/dL (2.5-4.9)
[2021-10-19] MEDS ORDERED: MELATONIN 5 MG TABLETS PO ONE (21:06)
[2021-10-19] MEDS ORDERED: CHLORHEXIDINE GLUCONATE 4% CLEANSER FOR DECOLONIZATION TP SCH ×2 (22:00)
[2021-10-19] MEDS ORDERED: ATORVASTATIN CA 40 MG TABLET (FP) PO SCH ×2 (22:00)
[2021-10-19] MEDS ORDERED: DOCUSATE SODIUM 100 MG CAPSULE (FP) PO SCH ×2 (22:00)
[2021-10-20] MEDS: NICARDIPINE 25 MG in DEXTROSE 5%-WATER - 240 ML IVPB SCH (01:00)
[2021-10-20] MEDS: INSULIN SLIDING SCALE (NOVOLOG) 1 VIAL SQ SCH ×4 (06:20→21:54)
[2021-10-20 07:45] LABS: BASO % 1.1 % (0-2.0); HEMATOCRIT 43.3 % (35.4-49); HEMOGLOBIN 14.8 GM/dL (11.7-16.9); MCH 27.7 pg (25.7-33.7); MCHC 34.2 g/dl (32.0-35.9); MEAN CELL VOLUME 80.9 fl (80-96); MEAN PLT VOLUME 8.6 fl (7.5-11.1); MONO % 7.7 % (3.8-10.2); NEUT % 76.2 % (42.8-82.8); PLATELET COUNT 241 10^3/uL (134-434); RBC 5.35 M/mm3 (4.00-5.60); RDW 14.6 % (11.9-15.9); WHITE BLOOD COUNT 6.3 K/mm3 (4.0-10.0)
[2021-10-20] MEDS: POLYETHYLENE GLYCOL (HEALTHYLAX) 3350 17 GM PACKET PO SCH (09:37)
[2021-10-20] MEDS: TAMSULOSIN HCL 0.4 MG CAP PO SCH (09:40)
[2021-10-20] MEDS: amLODIPine BESYLATE 5 MG TABLET (FP) PO SCH (09:40)
[2021-10-20] MEDS: MUPIROCIN 2% TOPICAL OINTMENT FOR DECOLONIZATION NS SCH (09:40)
[2021-10-20 12:18] LABS: CALCIUM 9.1 mg/dL (8.5-10.1); MAGNESIUM 2.1 mg/dL (1.8-2.4); PHOSPHOROUS 3.2 mg/dL (2.5-4.9)
[2021-10-20] MEDS ORDERED: NIFEdipine E.R 60 MG TABLET PO SCH ×2 (12:30→15:00)
[2021-10-20 13:13] VITALS: BMI 24.6
[2021-10-20] MEDS ORDERED: LOSARTAN POTASSIUM 25 MG TABLET PO ONE (13:59)
[2021-10-20 18:31] LABS: N-TERMINAL BNP 73.6 pg/ml (5-125)
[2021-10-20] MEDS ORDERED: MELATONIN 5 MG TABLETS PO ONE (21:45)
[2021-10-20] MEDS: ATORVASTATIN CA 40 MG TABLET (FP) PO SCH (21:50)
[2021-10-20] MEDS: DOCUSATE SODIUM 100 MG CAPSULE (FP) PO SCH (21:50)
[2021-10-20] MEDS ORDERED: CHLORHEXIDINE GLUCONATE 4% CLEANSER FOR DECOLONIZATION TP SCH (22:00)
[2021-10-20] MEDS ORDERED: MUPIROCIN 2% TOPICAL OINTMENT FOR DECOLONIZATION NS SCH (22:00)
[2021-10-21] MEDS: INSULIN SLIDING SCALE (NOVOLOG) 1 VIAL SQ SCH ×4 (06:19→21:43)
[2021-10-21 08:36] LABS: BASO % 0.8 % (0-2.0); EOS % 3.9 % (0-4.5); HEMATOCRIT 42.4 % (35.4-49); HEMOGLOBIN 14.4 GM/dL (11.7-16.9); LYMPH % 10.9 % (8-40); MCH 27.8 pg (25.7-33.7); MCHC 33.9 g/dl (32.0-35.9); MEAN CELL VOLUME 81.9 fl (80-96); MONO % 7.4 % (3.8-10.2); PLATELET COUNT 247 10^3/uL (134-434); RBC 5.17 M/mm3 (4.00-5.60); WHITE BLOOD COUNT 7.8 K/mm3 (4.0-10.0)
[2021-10-21 10:07] LABS: CREATININE 0.8 mg/dL (0.55-1.3)
[2021-10-21 10:08] LABS: CALCIUM 8.7 mg/dL (8.5-10.1)
[2021-10-21] MEDS: POLYETHYLENE GLYCOL (HEALTHYLAX) 3350 17 GM PACKET PO SCH (10:38)
[2021-10-21] MEDS: NIFEdipine E.R 60 MG TABLET PO SCH (10:38)
[2021-10-21] MEDS: TAMSULOSIN HCL 0.4 MG CAP PO SCH (10:38)
[2021-10-21 10:47] LABS: BLOOD UREA NITROGEN 23.5 mg/dL (7-18); MAGNESIUM 2.1 mg/dL (1.8-2.4); PHOSPHOROUS 3.3 mg/dL (2.5-4.9)
[2021-10-21] MEDS: ATORVASTATIN CA 40 MG TABLET (FP) PO SCH (21:43)
[2021-10-21] MEDS: DOCUSATE SODIUM 100 MG CAPSULE (FP) PO SCH (21:43)
[2021-10-22] MEDS: INSULIN SLIDING SCALE (NOVOLOG) 1 VIAL SQ SCH ×4 (06:19→22:29)
[2021-10-22 07:47] LABS: BASO % 0.8 % (0-2.0); EOS % 3.8 % (0-4.5); HEMATOCRIT 42.2 % (35.4-49); HEMOGLOBIN 14.5 GM/dL (11.7-16.9); LYMPH % 13.1 % (8-40); MCH 27.7 pg (25.7-33.7); MCHC 34.2 g/dl (32.0-35.9); MEAN PLT VOLUME 8.8 fl (7.5-11.1); MONO % 7.6 % (3.8-10.2); NEUT % 74.7 % (42.8-82.8); PLATELET COUNT 261 10^3/uL (134-434); RBC 5.22 M/mm3 (4.00-5.60); RDW 14.5 % (11.9-15.9); WHITE BLOOD COUNT 7.4 K/mm3 (4.0-10.0)
[2021-10-22] MEDS: TAMSULOSIN HCL 0.4 MG CAP PO SCH (08:12)
[2021-10-22] MEDS ORDERED: MAGNESIUM CITRATE 300 ML BOTTLE PO ONE (08:54)
[2021-10-22] MEDS: POLYETHYLENE GLYCOL (HEALTHYLAX) 3350 17 GM PACKET PO SCH (09:27)
[2021-10-22] MEDS: NIFEdipine E.R 60 MG TABLET PO SCH (09:27)
[2021-10-22 09:44] LABS: ALBUMIN 3.3 g/dl (3.4-5.0); BILIRUBIN,TOTAL 0.1 mg/dL (0.2-1); BLOOD UREA NITROGEN 25.5 mg/dL (7-18); CALCIUM 8.8 mg/dL (8.5-10.1); MAGNESIUM 2.1 mg/dL (1.8-2.4); TOT PROT 6.6 g/dl (6.4-8.2)
[2021-10-22] MEDS: LOSARTAN 50MG/HCTZ 12.5MG 1 TAB PO SCH (15:14)
[2021-10-22] MEDS ORDERED: LOSARTAN POTASSIUM 50 MG TABLET PO ONE (16:22)
[2021-10-22] MEDS: ATORVASTATIN CA 40 MG TABLET (FP) PO SCH (22:17)
[2021-10-22] MEDS: DOCUSATE SODIUM 100 MG CAPSULE (FP) PO SCH (22:17)
[2021-10-23] MEDS: INSULIN SLIDING SCALE (NOVOLOG) 1 VIAL SQ SCH ×2 (06:22→11:30)
[2021-10-23] MEDS: POLYETHYLENE GLYCOL (HEALTHYLAX) 3350 17 GM PACKET PO SCH (09:54)
[2021-10-23] MEDS: LOSARTAN 50MG/HCTZ 12.5MG 1 TAB PO SCH (09:54)
[2021-10-23] MEDS: TAMSULOSIN HCL 0.4 MG CAP PO SCH (09:54)
[2021-10-23] MEDS: NIFEdipine E.R 60 MG TABLET PO SCH (09:55)
[2021-10-23 15:47] VITALS: BP 145/86; PULSE 68; TEMP 97.5
== END 2021-10-23 17:13 | disposition home or self-care (01) | DRG 64 ==
LOC: JER 13:24 → JERBED 15:34 → JICU 10-19 00:49 → J4W 10-20 18:41
PROVIDERS: ADMIT Internal Medicine; ATTEND Internal Medicine
DX: I61.4 Nontraumatic intracerebral hemorrhage in cerebellum (principal); G93.6 Cerebral edema; I10 Essential (primary) hypertension; E11.9 Type 2 diabetes mellitus without complications; E78.5 Hyperlipidemia, unspecified; J44.9 Chronic obstructive pulmonary disease, unspecified; R42 Dizziness and giddiness; N40.0 Benign prostatic hyperplasia without lower urinary tract symptoms; K76.0 Fatty (change of) liver, not elsewhere classified
CPT/HCPCS: 36415; 70450-TC; 70551-TC; 80048; 80053; 80061; 81003; 82550; 82962; 83036; 83735; 83880; 84100; 84443; 84484; 85025; 85610; 85730; 86850; 86900; 86901; 87086; 93005; 93010; 93306-TC; 93880-TC; 97116-GP; 97162-GP; 99285-25; C9803; J0131; U0003; U0005

== ENCOUNTER 2022-02-05 17:29 | Emergency (ER) | payer OTHER ==
[2022-02-05 17:39] VITALS: BP 194/80; PULSE 62; TEMP 97.6; BMI 28.3
== END 2022-02-05 18:33 | disposition home or self-care (01) ==
LOC: JERFT 17:29
PROC: 0HQ3XZZ Repair Left Ear Skin, External Approach (ICD-10-PCS; principal; 2022-02-05)
DX: S01.312A Laceration without foreign body of left ear, initial encounter (principal); Y99.9 Unspecified external cause status
CPT/HCPCS: 99282-25

== ENCOUNTER 2022-03-29 13:14 | Inpatient (IN) | payer OTHER ==
[2022-03-29 15:10] LABS: HEMATOCRIT 39.3 % (35.4-49); HEMOGLOBIN 13.5 GM/dL (11.7-16.9); LYMPH % 11.6 % (8-40); MCH 27.7 pg (25.7-33.7); MCHC 34.5 g/dl (32.0-35.9); MEAN CELL VOLUME 80.4 fl (80-96); MONO % 8.5 % (3.8-10.2); NEUT % 75.9 % (42.8-82.8); PLATELET COUNT 272 10^3/uL (134-434); RBC 4.89 M/mm3 (4.00-5.60); RDW 13.9 % (11.9-15.9); WHITE BLOOD COUNT 5.6 K/mm3 (4.0-10.0)
[2022-03-29 15:20] LABS: URINE APPEARANCE CLEAR; URINE BILIRUBIN NEGATIVE (NEGATIVE); URINE COLOR YELLOW; URINE GLUCOSE (UA) 3+ (NEGATIVE); URINE KETONE NEGATIVE (NEGATIVE); URINE LEUK ESTERASE NEGATIVE (NEGATIVE); URINE NITRITE NEGATIVE (NEGATIVE); URINE PROTEIN TRACE (NEGATIVE); URINE UROBILINOGEN 0.2 mg/dL (0.2-1.0)
[2022-03-29 15:23] LABS: INR 1.02 (0.83-1.09); PROTHROMBIN TIME (PATIENT) 11.7 SEC (9.7-13.0)
[2022-03-29 15:24] LABS: CALCIUM 9.3 mg/dL (8.5-10.1)
[2022-03-29 15:25] LABS: ALBUMIN 3.9 g/dl (3.4-5.0); BLOOD UREA NITROGEN 32.4 mg/dL (7-18); MAGNESIUM 2.4 mg/dL (1.8-2.4)
[2022-03-29 15:26] LABS: ACTIVATED PTT 30.6 SECONDS (25.2-36.5)
[2022-03-29 15:28] LABS: CREATININE 1.2 mg/dL (0.55-1.3)
[2022-03-29 15:29] LABS: BILIRUBIN,TOTAL 0.6 mg/dL (0.2-1); TOT PROT 7.3 g/dl (6.4-8.2)
[2022-03-29] MEDS ORDERED: NIFEdipine E.R. 30 MG TABLET ONE (17:47)
[2022-03-29] MEDS: NIFEdipine E.R. 30 MG TABLET PO SCH (17:48)
[2022-03-29] MEDS ORDERED: ACETAMINOPHEN 1000 MG/100 ML BAG IVPB ONE (19:56)
[2022-03-29] MEDS ORDERED: ACETAMINOPHEN INJECTION 100 ML IVPB ONE (20:00)
[2022-03-29] MEDS: LOSARTAN 50MG/HCTZ 12.5MG 1 TAB PO SCH (20:04)
[2022-03-29] MEDS ORDERED: GABAPENTIN 300 MG CAPSULE ONE (20:55)
[2022-03-29] MEDS: GABAPENTIN 300 MG CAPSULE PO SCH (21:02)
[2022-03-29] MEDS ORDERED: ACETAMINOPHEN 325 MG TABLET (FP) PO PRN (23:39)
[2022-03-30 00:58] VITALS: BMI 24.6
[2022-03-30] MEDS: INSULIN SLIDING SCALE (NOVOLOG) 1 VIAL SQ SCH ×4 (06:32→21:23)
[2022-03-30 07:36] LABS: BASO % 1.2 % (0-2.0); EOS % 7.4 % (0-4.5); HEMOGLOBIN 13.3 GM/dL (11.7-16.9); LYMPH % 17.4 % (8-40); MCH 27.8 pg (25.7-33.7); MCHC 34.9 g/dl (32.0-35.9); MEAN CELL VOLUME 79.6 fl (80-96); MEAN PLT VOLUME 8.7 fl (7.5-11.1); MONO % 10.2 % (3.8-10.2); NEUT % 63.8 % (42.8-82.8); PLATELET COUNT 216 10^3/uL (134-434); RBC 4.78 M/mm3 (4.00-5.60); WHITE BLOOD COUNT 4.9 K/mm3 (4.0-10.0)
[2022-03-30 07:49] LABS: BLOOD UREA NITROGEN 27.1 mg/dL (7-18); CALCIUM 9.1 mg/dL (8.5-10.1)
[2022-03-30 07:50] LABS: ALBUMIN 3.4 g/dl (3.4-5.0)
[2022-03-30 07:53] LABS: CREATININE 0.8 mg/dL (0.55-1.3)
[2022-03-30 07:54] LABS: BILIRUBIN,TOTAL 0.8 mg/dL (0.2-1); TOT PROT 6.5 g/dl (6.4-8.2)
[2022-03-30] MEDS: NIFEdipine E.R. 30 MG TABLET PO SCH (09:50)
[2022-03-30] MEDS: LOSARTAN 50MG/HCTZ 12.5MG 1 TAB PO SCH (09:50)
[2022-03-30] MEDS: POLYETHYLENE GLYCOL (HEALTHYLAX) 3350 17 GM PACKET PO SCH (09:50)
[2022-03-30] MEDS: GABAPENTIN 300 MG CAPSULE PO SCH ×2 (09:50→21:18)
[2022-03-30] MEDS: TAMSULOSIN HCL 0.4 MG CAP PO SCH (09:50)
[2022-03-30] MEDS: ATORVASTATIN CA 40 MG TABLET (FP) PO SCH (21:18)
[2022-03-30] MEDS: DOCUSATE SODIUM 100 MG CAPSULE (FP) PO SCH (21:18)
[2022-03-30] MEDS: HEPARIN NA (PORCINE) 5,000 UNITS/ML 1ML VIAL SQ SCH (22:22)
[2022-03-30] MEDS: MELATONIN 5 MG TABLETS PO SCH (22:22)
[2022-03-31] MEDS: INSULIN SLIDING SCALE (NOVOLOG) 1 VIAL SQ SCH ×4 (06:33→21:11)
[2022-03-31 07:59] LABS: BASO % 1.3 % (0-2.0); EOS % 6.7 % (0-4.5); HEMATOCRIT 38.1 % (35.4-49); LYMPH % 18.5 % (8-40); MCH 27.2 pg (25.7-33.7); MCHC 34.2 g/dl (32.0-35.9); MEAN CELL VOLUME 79.5 fl (80-96); MEAN PLT VOLUME 9.1 fl (7.5-11.1); MONO % 9.3 % (3.8-10.2); NEUT % 64.2 % (42.8-82.8); PLATELET COUNT 234 10^3/uL (134-434); RBC 4.79 M/mm3 (4.00-5.60)
[2022-03-31 08:31] LABS: CALCIUM 9.2 mg/dL (8.5-10.1)
[2022-03-31 08:32] LABS: ALBUMIN 3.3 g/dl (3.4-5.0); BLOOD UREA NITROGEN 25.3 mg/dL (7-18)
[2022-03-31 08:35] LABS: CREATININE 0.8 mg/dL (0.55-1.3)
[2022-03-31 08:37] LABS: TOT PROT 6.2 g/dl (6.4-8.2)
[2022-03-31 08:41] LABS: BILIRUBIN,TOTAL 0.7 mg/dL (0.2-1)
[2022-03-31] MEDS: TAMSULOSIN HCL 0.4 MG CAP PO SCH (09:00)
[2022-03-31] MEDS: LOSARTAN 50MG/HCTZ 12.5MG 1 TAB PO SCH (09:51)
[2022-03-31] MEDS: HEPARIN NA (PORCINE) 5,000 UNITS/ML 1ML VIAL SQ SCH ×2 (09:51→21:11)
[2022-03-31] MEDS: GABAPENTIN 300 MG CAPSULE PO SCH ×2 (09:51→21:10)
[2022-03-31] MEDS: NIFEdipine E.R. 30 MG TABLET PO SCH (09:52)
[2022-03-31] MEDS: POLYETHYLENE GLYCOL (HEALTHYLAX) 3350 17 GM PACKET PO SCH (09:52)
[2022-03-31] MEDS ORDERED: REGADENOSON 0.4 MG/5 ML PRE-FILLED SYRINGE IVPUSH ONE ×2 (10:28→10:45)
[2022-03-31] MEDS: DOCUSATE SODIUM 100 MG CAPSULE (FP) PO SCH (21:10)
[2022-03-31] MEDS: ATORVASTATIN CA 40 MG TABLET (FP) PO SCH (21:10)
[2022-03-31] MEDS: MELATONIN 5 MG TABLETS PO SCH (21:11)
[2022-04-01 05:22] VITALS: PULSE 48
[2022-04-01] MEDS: INSULIN SLIDING SCALE (NOVOLOG) 1 VIAL SQ SCH ×2 (06:08→11:52)
[2022-04-01 08:28] VITALS: BP 127/70; TEMP 98.5
[2022-04-01] MEDS: POLYETHYLENE GLYCOL (HEALTHYLAX) 3350 17 GM PACKET PO SCH (09:58)
[2022-04-01] MEDS: HEPARIN NA (PORCINE) 5,000 UNITS/ML 1ML VIAL SQ SCH (09:58)
[2022-04-01] MEDS: NIFEdipine E.R. 30 MG TABLET PO SCH (09:58)
[2022-04-01] MEDS: GABAPENTIN 300 MG CAPSULE PO SCH (09:58)
[2022-04-01] MEDS: LOSARTAN 50MG/HCTZ 12.5MG 1 TAB PO SCH (09:58)
[2022-04-01] MEDS: TAMSULOSIN HCL 0.4 MG CAP PO SCH (09:58)
== END 2022-04-01 13:49 | disposition home or self-care (01) | DRG 57 ==
LOC: JER 13:14 → JERBED 14:11 → J4W 23:42
PROVIDERS: ADMIT Internal Medicine; ATTEND Internal Medicine
DX: I69.393 Ataxia following cerebral infarction (principal); I50.32 Chronic diastolic (congestive) heart failure; I69.351 Hemiplegia and hemiparesis following cerebral infarction affecting right dominant side; R53.1 Weakness; I11.0 Hypertensive heart disease with heart failure; R29.6 Repeated falls; E78.5 Hyperlipidemia, unspecified; E11.9 Type 2 diabetes mellitus without complications; J44.9 Chronic obstructive pulmonary disease, unspecified; N40.0 Benign prostatic hyperplasia without lower urinary tract symptoms; R16.0 Hepatomegaly, not elsewhere classified; F03.90 Unspecified dementia, unspecified severity, without behavioral disturbance, psychotic disturbance, mood disturbance, and anxiety; K76.0 Fatty (change of) liver, not elsewhere classified; M54.50 Low back pain, unspecified; R29.898 Other symptoms and signs involving the musculoskeletal system; M47.817 Spondylosis without myelopathy or radiculopathy, lumbosacral region
CPT/HCPCS: 36415; 70450-TC; 70551-TC; 71045-TC-FY; 72131-TC; 78452-TC; 80053; 81003; 82962; 83036; 83735; 84484; 85025; 85610; 85730; 87077; 87086; 93005; 93010; 93017; 93306-TC; 93880-TC; 97116-GP; 97162-GP; 99285-25; A9502; C9803-CS; J1644; J2785; U0003; U0005

== ENCOUNTER 2022-05-30 14:33 | Inpatient (IN) | payer OTHER ==
[2022-05-30 14:43] VITALS: BMI 25.5
[2022-05-30 15:41] LABS: BASO % 1.3 % (0-2.0); EOS % 4.8 % (0-4.5); HEMATOCRIT 39.2 % (35.4-49); HEMOGLOBIN 13.4 GM/dL (11.7-16.9); LYMPH % 14.7 % (8-40); MCH 27.4 pg (25.7-33.7); MCHC 34.2 g/dl (32.0-35.9); MEAN CELL VOLUME 80.2 fl (80-96); MEAN PLT VOLUME 8.7 fl (7.5-11.1); MONO % 7.7 % (3.8-10.2); NEUT % 71.5 % (42.8-82.8); PLATELET COUNT 210 10^3/uL (134-434); RBC 4.89 M/mm3 (4.00-5.60); RDW 14.1 % (11.9-15.9); WHITE BLOOD COUNT 4.8 K/mm3 (4.0-10.0)
[2022-05-30 15:52] LABS: ACTIVATED PTT 30.9 SECONDS (25.2-36.5); INR 0.97 (0.83-1.09); PROTHROMBIN TIME (PATIENT) 11.2 SEC (9.7-13.0)
[2022-05-30 15:53] LABS: URINE APPEARANCE CLEAR; URINE BILIRUBIN NEGATIVE (NEGATIVE); URINE COLOR YELLOW; URINE GLUCOSE (UA) 3+ (NEGATIVE); URINE KETONE NEGATIVE (NEGATIVE); URINE LEUK ESTERASE NEGATIVE (NEGATIVE); URINE NITRITE NEGATIVE (NEGATIVE); URINE PROTEIN NEGATIVE (NEGATIVE); URINE UROBILINOGEN 0.2 mg/dL (0.2-1.0)
[2022-05-30 15:57] LABS: CHLORIDE 100 mmol/L (98-107); SODIUM 134 mmol/L (136-145)
[2022-05-30 15:59] LABS: ALBUMIN 3.7 g/dl (3.4-5.0); ANION GAP 9 MMOL/L (8-16); CO2 25 mmol/L (21-32)
[2022-05-30 16:00] LABS: BLOOD UREA NITROGEN 31.1 mg/dL (7-18)
[2022-05-30 16:02] LABS: CREATININE 1.2 mg/dL (0.55-1.3); SGOT/AST 9 U/L (15-37); SGPT/ALT 19 U/L (13-61)
[2022-05-30 16:03] LABS: CHOLESTEROL 199 mg/dL (50-200); TRIGLYCERIDES 245 mg/dL (0-150)
[2022-05-30 16:04] LABS: LDL CHOLESTEROL (ONLY SJRH) 111 mg/dL (5-100); TOT PROT 7.2 g/dl (6.4-8.2)
[2022-05-30 16:05] LABS: BILIRUBIN,TOTAL 0.9 mg/dL (0.2-1)
[2022-05-30 16:06] LABS: ALK PHOS 94 U/L (45-117)
[2022-05-30 16:07] LABS: HDL CHOLESTEROL 46 mg/dL (40-60)
[2022-05-30 16:09] LABS: GLUCOSE,RANDOM 486 mg/dL (74-106)
[2022-05-30] MEDS ORDERED: LACTATED RINGERS SOLUTION 1000 ML INFUS.BAG IV ONE (16:24)
[2022-05-31] MEDS: metFORMIN HCL 500 MG TABLET (FP) PO SCH ×2 (06:51→17:00)
[2022-05-31] MEDS: INSULIN SLIDING SCALE (NOVOLOG) 1 VIAL SQ SCH ×4 (06:51→21:37)
[2022-05-31 06:55] LABS: BASO % 1.3 % (0-2.0); EOS % 7.3 % (0-4.5); HEMATOCRIT 36.7 % (35.4-49); HEMOGLOBIN 12.8 GM/dL (11.7-16.9); LYMPH % 16.5 % (8-40); MCH 27.6 pg (25.7-33.7); MCHC 34.9 g/dl (32.0-35.9); MEAN CELL VOLUME 79.1 fl (80-96); MEAN PLT VOLUME 8.5 fl (7.5-11.1); MONO % 8.2 % (3.8-10.2); NEUT % 66.7 % (42.8-82.8); PLATELET COUNT 204 10^3/uL (134-434); RBC 4.63 M/mm3 (4.00-5.60); RDW 13.7 % (11.9-15.9); WHITE BLOOD COUNT 5.4 K/mm3 (4.0-10.0)
[2022-05-31] MEDS: TAMSULOSIN HCL 0.4 MG CAP PO SCH (08:06)
[2022-05-31] MEDS: amLODIPine BESYLATE 5 MG TABLET (FP) PO SCH (09:10)
[2022-05-31] MEDS: ASPIRIN 81 MG CHEWABLE TABLETS PO SCH (09:10)
[2022-05-31] MEDS: LOSARTAN 50MG/HCTZ 12.5MG 1 TAB PO SCH (09:10)
[2022-05-31] MEDS: POLYETHYLENE GLYCOL (HEALTHYLAX) 3350 17 GM PACKET PO SCH (09:10)
[2022-05-31] MEDS: HEPARIN NA (PORCINE) 5,000 UNITS/ML 1ML VIAL SQ SCH ×2 (09:10→21:34)
[2022-05-31] MEDS ORDERED: ACETAMINOPHEN 1000 MG/100 ML BAG IVPB PRN (13:33)
[2022-05-31] MEDS: DOCUSATE SODIUM 100 MG CAPSULE (FP) PO SCH (21:34)
[2022-05-31] MEDS: ATORVASTATIN CA 40 MG TABLET (FP) PO SCH (21:34)
[2022-05-31] MEDS ORDERED: KETOROLAC TROMETHAMINE 15 MG/ML VIAL IVPUSH ONE (21:59)
[2022-06-01] MEDS: INSULIN SLIDING SCALE (NOVOLOG) 1 VIAL SQ SCH ×4 (06:20→21:34)
[2022-06-01] MEDS: metFORMIN HCL 500 MG TABLET (FP) PO SCH ×2 (06:20→16:50)
[2022-06-01] MEDS: TAMSULOSIN HCL 0.4 MG CAP PO SCH (08:01)
[2022-06-01] MEDS: HEPARIN NA (PORCINE) 5,000 UNITS/ML 1ML VIAL SQ SCH ×2 (09:24→21:33)
[2022-06-01] MEDS: ASPIRIN 81 MG CHEWABLE TABLETS PO SCH (09:24)
[2022-06-01] MEDS: POLYETHYLENE GLYCOL (HEALTHYLAX) 3350 17 GM PACKET PO SCH (09:24)
[2022-06-01] MEDS: LOSARTAN 50MG/HCTZ 12.5MG 1 TAB PO SCH (09:24)
[2022-06-01] MEDS: amLODIPine BESYLATE 5 MG TABLET (FP) PO SCH (09:24)
[2022-06-01] MEDS: DOCUSATE SODIUM 100 MG CAPSULE (FP) PO SCH (21:33)
[2022-06-01] MEDS: ATORVASTATIN CA 40 MG TABLET (FP) PO SCH (21:33)
[2022-06-02] MEDS: metFORMIN HCL 500 MG TABLET (FP) PO SCH ×2 (06:35→16:36)
[2022-06-02] MEDS: INSULIN SLIDING SCALE (NOVOLOG) 1 VIAL SQ SCH ×4 (06:36→21:14)
[2022-06-02] MEDS: LOSARTAN 50MG/HCTZ 12.5MG 1 TAB PO SCH (09:08)
[2022-06-02] MEDS: amLODIPine BESYLATE 5 MG TABLET (FP) PO SCH (09:08)
[2022-06-02] MEDS: HEPARIN NA (PORCINE) 5,000 UNITS/ML 1ML VIAL SQ SCH ×2 (09:08→21:15)
[2022-06-02] MEDS: TAMSULOSIN HCL 0.4 MG CAP PO SCH (09:08)
[2022-06-02] MEDS: ASPIRIN 81 MG CHEWABLE TABLETS PO SCH (09:08)
[2022-06-02] MEDS: POLYETHYLENE GLYCOL (HEALTHYLAX) 3350 17 GM PACKET PO SCH (09:09)
[2022-06-02] MEDS: CLOPIDOGREL BISULFATE 75 MG TABLET (FP) PO SCH (09:09)
[2022-06-02] MEDS: DOCUSATE SODIUM 100 MG CAPSULE (FP) PO SCH (21:15)
[2022-06-02] MEDS: ATORVASTATIN CA 40 MG TABLET (FP) PO SCH (21:15)
[2022-06-03] MEDS: metFORMIN HCL 500 MG TABLET (FP) PO SCH (06:25)
[2022-06-03] MEDS: INSULIN SLIDING SCALE (NOVOLOG) 1 VIAL SQ SCH ×2 (06:25→11:50)
[2022-06-03 08:49] LABS: BASO % 1.3 % (0-2.0); EOS % 6.9 % (0-4.5); HEMATOCRIT 39.6 % (35.4-49); HEMOGLOBIN 13.8 GM/dL (11.7-16.9); LYMPH % 16.8 % (8-40); MCH 27.8 pg (25.7-33.7); MCHC 34.8 g/dl (32.0-35.9); MEAN CELL VOLUME 79.7 fl (80-96); MEAN PLT VOLUME 9.2 fl (7.5-11.1); PLATELET COUNT 222 10^3/uL (134-434); RBC 4.97 M/mm3 (4.00-5.60); RDW 14.1 % (11.9-15.9); WHITE BLOOD COUNT 4.6 K/mm3 (4.0-10.0)
[2022-06-03 09:03] LABS: CALCIUM 9.2 mg/dL (8.5-10.1)
[2022-06-03 09:04] LABS: ALBUMIN 3.3 g/dl (3.4-5.0); BLOOD UREA NITROGEN 22.4 mg/dL (7-18)
[2022-06-03 09:07] LABS: CREATININE 0.8 mg/dL (0.55-1.3)
[2022-06-03 09:08] LABS: BILIRUBIN,TOTAL 0.5 mg/dL (0.2-1); TOT PROT 6.5 g/dl (6.4-8.2)
[2022-06-03] MEDS: amLODIPine BESYLATE 5 MG TABLET (FP) PO SCH (09:11)
[2022-06-03] MEDS: CLOPIDOGREL BISULFATE 75 MG TABLET (FP) PO SCH (09:11)
[2022-06-03] MEDS: ASPIRIN 81 MG CHEWABLE TABLETS PO SCH (09:11)
[2022-06-03] MEDS: POLYETHYLENE GLYCOL (HEALTHYLAX) 3350 17 GM PACKET PO SCH (09:11)
[2022-06-03] MEDS: HEPARIN NA (PORCINE) 5,000 UNITS/ML 1ML VIAL SQ SCH (09:11)
[2022-06-03] MEDS: LOSARTAN 50MG/HCTZ 12.5MG 1 TAB PO SCH (09:11)
[2022-06-03] MEDS: TAMSULOSIN HCL 0.4 MG CAP PO SCH (09:11)
[2022-06-03 10:46] VITALS: BP 138/80; PULSE 56; TEMP 98
== END 2022-06-03 14:10 | DRG 65 ==
LOC: JER 14:33 → JERBED 16:24 → J4W 19:20
PROVIDERS: ADMIT Internal Medicine; ATTEND Internal Medicine
DX: I63.81 Other cerebral infarction due to occlusion or stenosis of small artery (principal); I50.32 Chronic diastolic (congestive) heart failure; I11.0 Hypertensive heart disease with heart failure; J44.9 Chronic obstructive pulmonary disease, unspecified; E11.9 Type 2 diabetes mellitus without complications; E78.5 Hyperlipidemia, unspecified; R29.707 NIHSS score 7
CPT/HCPCS: 36415; 70450-TC; 70496-TC; 70498-TC; 70551-TC; 71045-TC-FY; 80053; 80061; 81003; 82550; 82962; 83036; 84484; 85025; 85610; 85730; 86850; 86900; 86901; 93005; 93010; 97116-GP; 97162-GP; 99285-25; C9803-CS; J1644; Q9967; U0003; U0005

== ENCOUNTER 2022-08-27 02:14 | Inpatient (IN) | payer OTHER ==
[2022-08-27 02:33] VITALS: BMI 24.3
[2022-08-27] MEDS ORDERED: ACETAMINOPHEN 325 MG TABLET (FP) ONE (03:22)
[2022-08-27] MEDS: amLODIPine BESYLATE 5 MG TABLET (FP) PO SCH (11:35)
[2022-08-27] MEDS: ACETAMINOPHEN 325 MG TABLET (FP) PO PRN (11:35)
[2022-08-27] MEDS: ASPIRIN 81 MG CHEWABLE TABLETS PO SCH (11:36)
[2022-08-27] MEDS: TAMSULOSIN HCL 0.4 MG CAP PO SCH (11:36)
[2022-08-27] MEDS: POLYETHYLENE GLYCOL (HEALTHYLAX) 3350 17 GM PACKET PO SCH (11:37)
[2022-08-27] MEDS: HEPARIN NA (PORCINE) 5,000 UNITS/ML 1ML VIAL SQ SCH ×2 (11:37→21:30)
[2022-08-27] MEDS: INSULIN SLIDING SCALE (NOVOLOG) 1 VIAL SQ SCH ×3 (11:50→21:38)
[2022-08-27] MEDS: LOSARTAN 50MG/HCTZ 12.5MG 1 TAB PO SCH (13:23)
[2022-08-27] MEDS: ATORVASTATIN CA 40 MG TABLET (FP) PO SCH (21:36)
[2022-08-27] MEDS: MELATONIN 5 MG TABLETS PO SCH (21:36)
[2022-08-27] MEDS ORDERED: SENNOSIDES 8.6MG TABLET (FP) PO PRN (22:00)
[2022-08-28] MEDS: INSULIN SLIDING SCALE (NOVOLOG) 1 VIAL SQ SCH ×4 (06:32→21:26)
[2022-08-28] MEDS: TAMSULOSIN HCL 0.4 MG CAP PO SCH (08:11)
[2022-08-28] MEDS: amLODIPine BESYLATE 5 MG TABLET (FP) PO SCH (09:52)
[2022-08-28] MEDS: LOSARTAN 50MG/HCTZ 12.5MG 1 TAB PO SCH (09:52)
[2022-08-28] MEDS: POLYETHYLENE GLYCOL (HEALTHYLAX) 3350 17 GM PACKET PO SCH (09:52)
[2022-08-28] MEDS: HEPARIN NA (PORCINE) 5,000 UNITS/ML 1ML VIAL SQ SCH ×2 (09:52→21:25)
[2022-08-28] MEDS: ASPIRIN 81 MG CHEWABLE TABLETS PO SCH (09:52)
[2022-08-28] MEDS: ATORVASTATIN CA 40 MG TABLET (FP) PO SCH (21:25)
[2022-08-28] MEDS: MELATONIN 5 MG TABLETS PO SCH (21:25)
[2022-08-28] MEDS: ACETAMINOPHEN 325 MG TABLET (FP) PO PRN (21:30)
[2022-08-29] MEDS ORDERED: traMADol HCL 50 MG TABLET PO ONE (01:00)
[2022-08-29] MEDS: INSULIN SLIDING SCALE (NOVOLOG) 1 VIAL SQ SCH ×2 (06:28→11:23)
[2022-08-29] MEDS: TAMSULOSIN HCL 0.4 MG CAP PO SCH (08:18)
[2022-08-29] MEDS: HEPARIN NA (PORCINE) 5,000 UNITS/ML 1ML VIAL SQ SCH (09:34)
[2022-08-29] MEDS: ACETAMINOPHEN 325 MG TABLET (FP) PO PRN (09:34)
[2022-08-29] MEDS: ASPIRIN 81 MG CHEWABLE TABLETS PO SCH (09:35)
[2022-08-29] MEDS: amLODIPine BESYLATE 5 MG TABLET (FP) PO SCH (09:35)
[2022-08-29] MEDS: POLYETHYLENE GLYCOL (HEALTHYLAX) 3350 17 GM PACKET PO SCH (09:37)
[2022-08-29] MEDS: LOSARTAN 50MG/HCTZ 12.5MG 1 TAB PO SCH (09:41)
[2022-08-29 11:42] VITALS: RESP 18
[2022-08-29 15:26] VITALS: BP 150/72; PULSE 60; TEMP 97.5
== END 2022-08-29 15:47 | DRG 57 ==
LOC: JER 02:14 → JERBED 02:42 → J4S 03:16
PROVIDERS: ADMIT Internal Medicine; ATTEND Internal Medicine
DX: I69.351 Hemiplegia and hemiparesis following cerebral infarction affecting right dominant side (principal); I50.32 Chronic diastolic (congestive) heart failure; I11.0 Hypertensive heart disease with heart failure; E11.9 Type 2 diabetes mellitus without complications; J44.9 Chronic obstructive pulmonary disease, unspecified; E78.5 Hyperlipidemia, unspecified; N40.0 Benign prostatic hyperplasia without lower urinary tract symptoms; R53.1 Weakness
CPT/HCPCS: 0241U-QW; 36415; 70450-TC; 71045-TC-FY; 72125-TC; 73070-TC-LT-FY; 80053; 81003; 82962; 83735; 84100; 84484; 85025; 87086; 93005; 93010; 96372; 96374; 97116-GP; 97161-GP; 99285-25; G0378; J1644

== ENCOUNTER 2023-01-28 23:21 | Inpatient (IN) | payer OTHER ==
[2023-01-28 23:27] VITALS: BMI 25.8
[2023-01-29] MEDS ORDERED: ACETAMINOPHEN 1000 MG/100 ML BAG IVPB ONE (00:45)
[2023-01-29] MEDS ORDERED: ONDANSETRON 4 MG/2 ML VIAL IVPUSH ONE (01:00)
[2023-01-29] MEDS ORDERED: morphine CARPU-JECT 2 MG/1 ML DISP.SYRIN IVPUSH ONE ×2 (01:12→06:33)
[2023-01-29] MEDS ORDERED: LIDOCAINE 5% TOPICAL PATCH TP ONE (01:16)
[2023-01-29] MEDS ORDERED: LIDOCAINE 5% TOPICAL PATCH ONE (01:19)
[2023-01-29] MEDS ORDERED: ONDANSETRON 4 MG/2 ML VIAL ONE (01:20)
[2023-01-29] MEDS ORDERED: LOSARTAN POTASSIUM 50 MG TABLET PO ONE (01:30)
[2023-01-29] MEDS ORDERED: ACETAMINOPHEN INJECTION 100 ML IVPB ONE (01:38)
[2023-01-29] MEDS ORDERED: LOSARTAN POTASSIUM 50 MG TABLET ONE (01:39)
[2023-01-29 01:49] LABS: BASO % 0.9 % (0-2.0); EOS % 3.2 % (0-4.5); HEMATOCRIT 39.9 % (35.4-49); HEMOGLOBIN 13.8 GM/dL (11.7-16.9); LYMPH % 10.8 % (8-40); MCH 27.4 pg (25.7-33.7); MCHC 34.6 g/dl (32.0-35.9); MEAN CELL VOLUME 79.2 fl (80-96); MEAN PLT VOLUME 8.6 fl (7.5-11.1); MONO % 7.7 % (3.8-10.2); NEUT % 77.4 % (42.8-82.8); PLATELET COUNT 315 10^3/uL (134-434); RBC 5.03 M/mm3 (4.00-5.60); RDW 13.6 % (11.9-15.9); WHITE BLOOD COUNT 7.4 K/mm3 (4.0-10.0)
[2023-01-29 02:00] LABS: INR 1.09 (0.83-1.09); PROTHROMBIN TIME (PATIENT) 12.6 SEC (9.7-13.0)
[2023-01-29 02:03] LABS: ACTIVATED PTT 30.1 SECONDS (25.2-36.5)
[2023-01-29 02:44] LABS: ALBUMIN 4.1 g/dl (3.4-5.0); BLOOD UREA NITROGEN 18.7 mg/dL (7-18); CALCIUM 9.5 mg/dL (8.5-10.1)
[2023-01-29 02:47] LABS: CREATININE 1.1 mg/dL (0.55-1.3)
[2023-01-29 02:49] LABS: BILIRUBIN,TOTAL 0.5 mg/dL (0.2-1); TOT PROT 7.8 g/dl (6.4-8.2)
[2023-01-29 02:52] LABS: N-TERMINAL BNP 140.9 pg/ml (5-450)
[2023-01-29 03:38] LABS: EPI CELLS 1 /uL (0-25.1); HYALINE CASTS 0 /uL (0-3.1); PH,URINE 7.5 (5.0-8.0); URINE APPEARANCE CLEAR; URINE BACTERIA 0 /uL (0-1359); URINE BILIRUBIN NEGATIVE (NEGATIVE); URINE COLOR YELLOW; URINE GLUCOSE (UA) 3+ (NEGATIVE); URINE KETONE NEGATIVE (NEGATIVE); URINE LEUK ESTERASE NEGATIVE (NEGATIVE); URINE NITRITE NEGATIVE (NEGATIVE); URINE PROTEIN 2+ (NEGATIVE); URINE RBC 16 /uL (0-23.9); URINE UROBILINOGEN 0.2 mg/dL (0.2-1.0); URINE WBC 2 /uL (0-25.8)
[2023-01-29] MEDS ORDERED: INSULIN REGULAR HUMAN 100 UNITS/ML *VIAL SQ ONE (03:53)
[2023-01-29] MEDS ORDERED: SODIUM CHLORIDE 0.9% 500 ML INFUS.BAG IV ONE (03:53)
[2023-01-29] MEDS ORDERED: amLODIPine BESYLATE 5 MG TABLET (FP) PO ONE (06:32)
[2023-01-29] MEDS ORDERED: HYDROCHLOROTHIAZIDE 50 MG TABLET PO ONE (06:32)
[2023-01-29] MEDS ORDERED: HYDROCHLOROTHIAZIDE 25 MG TABLET (FP) ONE (06:36)
[2023-01-29] MEDS ORDERED: amLODIPine BESYLATE 2.5 MG TABLET (FP) ONE (06:37)
[2023-01-29] MEDS: ATORVASTATIN CA 40 MG TABLET (FP) PO SCH (23:05)
[2023-01-29] MEDS: RIVAROXABAN 2.5 MG TABLET PO SCH (23:05)
[2023-01-29] MEDS: LIDOCAINE PATCH REMOVAL MC SCH (23:06)
[2023-01-30 08:11] LABS: BASO % 1.1 % (0-2.0); EOS % 6.2 % (0-4.5); HEMOGLOBIN 12.4 GM/dL (11.7-16.9); LYMPH % 13.4 % (8-40); MCH 27.1 pg (25.7-33.7); MCHC 34.4 g/dl (32.0-35.9); MEAN CELL VOLUME 78.7 fl (80-96); MEAN PLT VOLUME 8.4 fl (7.5-11.1); MONO % 9.4 % (3.8-10.2); NEUT % 69.9 % (42.8-82.8); PLATELET COUNT 263 10^3/uL (134-434); RBC 4.57 M/mm3 (4.00-5.60); RDW 13.4 % (11.9-15.9); WHITE BLOOD COUNT 4.9 K/mm3 (4.0-10.0)
[2023-01-30 08:23] LABS: ALBUMIN 3.4 g/dl (3.4-5.0); BLOOD UREA NITROGEN 19.6 mg/dL (7-18); CALCIUM 8.7 mg/dL (8.5-10.1)
[2023-01-30 08:29] LABS: BILIRUBIN,TOTAL 0.6 mg/dL (0.2-1); TOT PROT 6.3 g/dl (6.4-8.2)
[2023-01-30] MEDS: LOSARTAN 50MG/HCTZ 12.5MG 1 TAB PO SCH (09:11)
[2023-01-30] MEDS: ASPIRIN 81 MG CHEWABLE TABLETS PO SCH (09:11)
[2023-01-30] MEDS: RIVAROXABAN 2.5 MG TABLET PO SCH ×2 (09:11→21:54)
[2023-01-30] MEDS: amLODIPine BESYLATE 5 MG TABLET (FP) PO SCH (09:11)
[2023-01-30] MEDS: TAMSULOSIN HCL 0.4 MG CAP PO SCH (09:11)
[2023-01-30 21:35] VITALS: RESP 18
[2023-01-30] MEDS: ATORVASTATIN CA 40 MG TABLET (FP) PO SCH (21:40)
[2023-01-30] MEDS: LIDOCAINE PATCH REMOVAL MC SCH (21:40)
[2023-01-31] MEDS: RIVAROXABAN 2.5 MG TABLET PO SCH (10:38)
[2023-01-31] MEDS: TAMSULOSIN HCL 0.4 MG CAP PO SCH (10:38)
[2023-01-31] MEDS: amLODIPine BESYLATE 5 MG TABLET (FP) PO SCH (10:38)
[2023-01-31] MEDS: ASPIRIN 81 MG CHEWABLE TABLETS PO SCH (10:38)
[2023-01-31] MEDS: LOSARTAN 50MG/HCTZ 12.5MG 1 TAB PO SCH (10:38)
[2023-01-31 14:33] VITALS: BP 147/82; PULSE 74; TEMP 98.5
[2023-01-31] MEDS ORDERED: POLYETHYLENE GLYCOL (HEALTHYLAX) 3350 17 GM PACKET PO SCH (16:15)
[2023-01-31] MEDS ORDERED: DOCUSATE SODIUM 100 MG CAPSULE (FP) PO SCH (22:00)
== END 2023-01-31 18:08 | DRG 57 ==
LOC: JER 23:21 → JERBED 01-29 05:42 → OBSVTOIN 01-29 16:21 → J4W 01-29 17:29
PROVIDERS: ADMIT Internal Medicine; ATTEND Internal Medicine
DX: I69.351 Hemiplegia and hemiparesis following cerebral infarction affecting right dominant side (principal); I50.32 Chronic diastolic (congestive) heart failure; J44.9 Chronic obstructive pulmonary disease, unspecified; I11.0 Hypertensive heart disease with heart failure; E11.9 Type 2 diabetes mellitus without complications; E78.5 Hyperlipidemia, unspecified; N40.0 Benign prostatic hyperplasia without lower urinary tract symptoms
CPT/HCPCS: 0241U-QW; 36415; 70450-TC; 70551-TC; 71275-TC; 74174-TC; 80053; 81003; 82962; 83880; 84484; 85025; 85610; 85730; 86850; 86900; 86901; 87086; 93005; 93010; 93880-TC; 97116-GP; 97161-GP; 99285-25; G0378; Q9967

== ENCOUNTER 2023-09-11 20:35 | Observation (INO) | payer OTHER ==
[2023-09-11 22:40] LABS: EOS % 3.9 % (0-4.5); HEMATOCRIT 43.3 % (35.4-49); HEMOGLOBIN 14.2 GM/dL (11.7-16.9); MCHC 32.8 g/dl (32.0-35.9); MEAN CELL VOLUME 82.1 fl (80-96); MONO % 8.2 % (3.8-10.2); NEUT % 78.9 % (42.8-82.8); PLATELET COUNT 314 10^3/uL (134-434); RBC 5.27 M/mm3 (4.00-5.60); WHITE BLOOD COUNT 8.6 K/mm3 (4.0-10.0)
[2023-09-11 22:44] LABS: INR 1.17 (0.83-1.09); PROTHROMBIN TIME (PATIENT) 13.6 SEC (9.7-13.0)
[2023-09-11 22:47] LABS: ACTIVATED PTT 35.4 SECONDS (25.2-36.5)
[2023-09-12 00:08] LABS: ALBUMIN 3.8 g/dl (3.4-5.0); BILIRUBIN,TOTAL 0.4 mg/dL (0.2-1); BLOOD UREA NITROGEN 30.5 mg/dL (7-18); CALCIUM 8.9 mg/dL (8.5-10.1); CREATININE 1.1 mg/dL (0.55-1.3); POTASSIUM 3.9 mmol/L (3.5-5.1); TOT PROT 7.6 g/dl (6.4-8.2)
[2023-09-12] MEDS ORDERED: ALBUTEROL SO4 0.042% IH SOL 1.25 MG/3 ML VIAL.NEB NEB ONE (00:34)
[2023-09-12] MEDS ORDERED: ACETAMINOPHEN 1000 MG/100 ML BAG IVPB ONE (01:34)
[2023-09-12] MEDS ORDERED: ACETAMINOPHEN INJECTION 100 ML IVPB ONE (01:43)
[2023-09-12 01:48] LABS: URINE APPEARANCE CLEAR; URINE BILIRUBIN NEGATIVE (NEGATIVE); URINE COLOR YELLOW; URINE GLUCOSE (UA) 3+ (NEGATIVE); URINE KETONE NEGATIVE (NEGATIVE); URINE LEUK ESTERASE NEGATIVE (NEGATIVE); URINE NITRITE NEGATIVE (NEGATIVE); URINE PROTEIN TRACE (NEGATIVE); URINE UROBILINOGEN 0.2 mg/dL (0.2-1.0)
[2023-09-12] MEDS ORDERED: hydrALAZINE HCL 25 MG TABLET (FP) ONE (02:15)
[2023-09-12] MEDS ORDERED: ONDANSETRON 4 MG/2 ML VIAL IVPUSH ONE (02:31)
[2023-09-12] MEDS ORDERED: MECLIZINE HCL 25 MG TABLET (FP) PO ONE (02:31)
[2023-09-12] MEDS ORDERED: ONDANSETRON 4 MG/2 ML VIAL ONE (02:43)
[2023-09-12] MEDS ORDERED: MECLIZINE HCL 25 MG TABLET (FP) ONE (02:43)
[2023-09-12] MEDS ORDERED: MECLIZINE HCL 12.5 MG TABLET PO PRN (09:59)
[2023-09-12] MEDS ORDERED: amLODIPine BESYLATE 5 MG TABLET (FP) ONE (14:02)
[2023-09-12] MEDS ORDERED: TAMSULOSIN HCL 0.4 MG CAP ONE (14:02)
[2023-09-12] MEDS ORDERED: ASPIRIN 81 MG CHEWABLE TABLETS ONE (14:02)
[2023-09-12] MEDS: INSULIN SLIDING SCALE (NOVOLOG) 1 VIAL SQ SCH ×3 (14:04→22:15)
[2023-09-12] MEDS: amLODIPine BESYLATE 5 MG TABLET (FP) PO SCH (14:16)
[2023-09-12] MEDS: ASPIRIN 81 MG CHEWABLE TABLETS PO SCH (14:16)
[2023-09-12] MEDS: LOSARTAN 50MG/HCTZ 12.5MG 1 TAB PO SCH (14:17)
[2023-09-12] MEDS: TAMSULOSIN HCL 0.4 MG CAP PO SCH (14:17)
[2023-09-12] MEDS: RIVAROXABAN 2.5 MG TABLET PO SCH (14:17)
[2023-09-12 19:10] VITALS: BMI 25.9
[2023-09-12] MEDS: ATORVASTATIN CA 40 MG TABLET (FP) PO SCH (22:14)
[2023-09-13] MEDS: RIVAROXABAN 2.5 MG TABLET PO SCH ×3 (00:24→23:02)
[2023-09-13] MEDS: INSULIN SLIDING SCALE (NOVOLOG) 1 VIAL SQ SCH ×4 (06:16→21:45)
[2023-09-13 07:09] LABS: BASO % 0.4 % (0-2.0); EOS % 3.7 % (0-4.5); HEMATOCRIT 38.9 % (35.4-49); HEMOGLOBIN 13.3 GM/dL (11.7-16.9); LYMPH % 7.2 % (8-40); MCH 27.7 pg (25.7-33.7); MCHC 34.1 g/dl (32.0-35.9); MEAN CELL VOLUME 81.3 fl (80-96); MEAN PLT VOLUME 8.6 fl (7.5-11.1); MONO % 7.9 % (3.8-10.2); NEUT % 80.8 % (42.8-82.8); PLATELET COUNT 252 10^3/uL (134-434); RBC 4.78 M/mm3 (4.00-5.60); RDW 14.8 % (11.9-15.9); WHITE BLOOD COUNT 9.2 K/mm3 (4.0-10.0)
[2023-09-13 07:24] LABS: POTASSIUM 3.6 mmol/L (3.5-5.1)
[2023-09-13 07:29] LABS: CALCIUM 8.4 mg/dL (8.5-10.1)
[2023-09-13 07:30] LABS: ALBUMIN 3.3 g/dl (3.4-5.0); BLOOD UREA NITROGEN 26.6 mg/dL (7-18)
[2023-09-13 07:31] LABS: CREATININE 0.9 mg/dL (0.55-1.3)
[2023-09-13 07:33] LABS: BILIRUBIN,TOTAL 0.6 mg/dL (0.2-1); TOT PROT 6.6 g/dl (6.4-8.2)
[2023-09-13] MEDS: TAMSULOSIN HCL 0.4 MG CAP PO SCH (08:20)
[2023-09-13] MEDS: LOSARTAN 50MG/HCTZ 12.5MG 1 TAB PO SCH (10:22)
[2023-09-13] MEDS: amLODIPine BESYLATE 5 MG TABLET (FP) PO SCH (10:22)
[2023-09-13] MEDS: ASPIRIN 81 MG CHEWABLE TABLETS PO SCH (10:22)
[2023-09-13 15:50] VITALS: RESP 18
[2023-09-13] MEDS: ATORVASTATIN CA 40 MG TABLET (FP) PO SCH (21:38)
[2023-09-14] MEDS: INSULIN SLIDING SCALE (NOVOLOG) 1 VIAL SQ SCH ×3 (05:52→12:24)
[2023-09-14 07:21] LABS: N-TERMINAL BNP 69.9 pg/ml (5-450)
[2023-09-14] MEDS: TAMSULOSIN HCL 0.4 MG CAP PO SCH (07:59)
[2023-09-14] MEDS: RIVAROXABAN 2.5 MG TABLET PO SCH (09:54)
[2023-09-14] MEDS: LOSARTAN 50MG/HCTZ 12.5MG 1 TAB PO SCH (09:55)
[2023-09-14] MEDS: ASPIRIN 81 MG CHEWABLE TABLETS PO SCH (09:55)
[2023-09-14] MEDS: amLODIPine BESYLATE 5 MG TABLET (FP) PO SCH (09:55)
[2023-09-14] MEDS ORDERED: FENOFIBRIC ACID 45 MG CAP PO SCH (10:00)
[2023-09-14 12:01] VITALS: BP 127/53; PULSE 64; TEMP 98.2
[2023-09-14] MEDS ORDERED: EMPAGLIFLOZIN (JARDIANCE) 10 MG TABLET PO SCH (13:00)
== END 2023-09-14 15:41 | disposition home or self-care (01) ==
LOC: JER 20:35 → JERBED 23:48 → INTOOBSV 23:48 → J4W 09-12 18:52
PROVIDERS: ADMIT Internal Medicine; ATTEND Internal Medicine
PROC: 3E033NZ Introduction of Analgesics, Hypnotics, Sedatives into Peripheral Vein, Percutaneous Approach (ICD-10-PCS; principal; 2023-09-11)
PROC: 3E013VG Introduction of Insulin into Subcutaneous Tissue, Percutaneous Approach (ICD-10-PCS; 2023-09-11)
PROC: 3E033GC Introduction of Other Therapeutic Substance into Peripheral Vein, Percutaneous Approach (ICD-10-PCS; 2023-09-11)
DX: R42 Dizziness and giddiness (principal); E11.9 Type 2 diabetes mellitus without complications; J44.9 Chronic obstructive pulmonary disease, unspecified; I10 Essential (primary) hypertension; E78.00 Pure hypercholesterolemia, unspecified; R26.81 Unsteadiness on feet; I69.851 Hemiplegia and hemiparesis following other cerebrovascular disease affecting right dominant side; N40.0 Benign prostatic hyperplasia without lower urinary tract symptoms; Z87.891 Personal history of nicotine dependence
CPT/HCPCS: 0241U-QW; 36415; 70450-TC; 70551-TC; 71045-TC-FY; 80053; 80061; 81003; 82550; 82962; 83036; 83880; 84443; 84484; 85025; 85610; 85730; 87086; 87635; 93005; 93010; 93306-TC; 93880-TC; 96372; 96374; 96375; 97116-GP; 97161-GP; 99285-25; G0378

== ENCOUNTER 2024-04-04 21:25 | Inpatient (IN) | payer OTHER ==
[2024-04-04] MEDS ORDERED: MECLIZINE HCL 12.5 MG TABLET ONE (22:19)
[2024-04-04] MEDS: MECLIZINE HCL 12.5 MG TABLET PO ONE (22:22)
[2024-04-04 22:24] LABS: BASO % 0.9 % (0-2.0); EOS % 3.9 % (0-4.5); HEMATOCRIT 38.6 % (35.4-49); HEMOGLOBIN 13.1 GM/dL (11.7-16.9); LYMPH % 8.4 % (8-40); MCH 27.4 pg (25.7-33.7); MCHC 34.1 g/dl (32.0-35.9); MEAN CELL VOLUME 80.5 fl (80-96); MEAN PLT VOLUME 8.7 fl (7.5-11.1); MONO % 8.9 % (3.8-10.2); NEUT % 77.9 % (42.8-82.8); PLATELET COUNT 251 10^3/uL (134-434); RBC 4.79 M/mm3 (4.00-5.60); RDW 14.9 % (11.9-15.9); WHITE BLOOD COUNT 7.7 K/mm3 (4.0-10.0)
[2024-04-04] MEDS: SODIUM CHLORIDE 0.9% 500 ML INFUS.BAG IV ONE (22:40)
[2024-04-04] MEDS: SODIUM CHLORIDE 0.9% 1000 ML INFUS.BAG IV ONE (22:40)
[2024-04-04 22:50] LABS: POTASSIUM 4.6 mmol/L (3.5-5.1)
[2024-04-04 22:51] LABS: ALBUMIN 3.5 g/dl (3.4-5.0); BLOOD UREA NITROGEN 26.1 mg/dL (7-18); CALCIUM 8.8 mg/dL (8.5-10.1); MAGNESIUM 1.8 mg/dL (1.8-2.4)
[2024-04-04 22:55] LABS: CREATININE 1.3 mg/dL (0.55-1.3); PHOSPHOROUS 1.9 mg/dL (2.5-4.9)
[2024-04-04 22:57] LABS: BILIRUBIN,TOTAL 0.3 mg/dL (0.2-1)
[2024-04-04] MEDS ORDERED: PIPERACILLIN/TAZOB 3.375 GM 3.375 GM/50 ML BAG IVPB ONE (23:25)
[2024-04-04] MEDS: PIPERACILLIN/TAZOB 3.375 GM 3.375 GM in DEXTROSE 5%-WATER - 50 ML IVPB ONE (23:28)
[2024-04-05 00:43] LABS: EPI CELLS 3 /uL (0-25.1); HYALINE CASTS 0 /uL (0-3.1); PH,URINE 5.5 (5.0-8.0); URINE APPEARANCE CLEAR; URINE BACTERIA 4 /uL (0-1359); URINE BILIRUBIN NEGATIVE (NEGATIVE); URINE COLOR YELLOW; URINE GLUCOSE (UA) 3+ (NEGATIVE); URINE KETONE TRACE (NEGATIVE); URINE LEUK ESTERASE NEGATIVE (NEGATIVE); URINE NITRITE NEGATIVE (NEGATIVE); URINE PROTEIN 1+ (NEGATIVE); URINE RBC 14 /uL (0-23.9); URINE UROBILINOGEN 0.2 mg/dL (0.2-1.0); URINE WBC 6 /uL (0-25.8)
[2024-04-05] MEDS: VANCOMYCIN HCL 1,500 MG in DEXTROSE 5%-WATER - 500 ML IVPB ONE (00:52)
[2024-04-05 03:35] VITALS: BMI 26.1
[2024-04-05] MEDS: NAPH,MB-DB/K PH,MBDB POWDER PACKET PO ONE (05:27)
[2024-04-05] MEDS: LABETALOL HCL 100 MG TABLET (FP) PO SCH (06:29)
[2024-04-05] MEDS: INSULIN ASPART SLIDING SCALE (NOVOLOG) 1 VIAL SQ SCH (06:30)
[2024-04-05 08:29] LABS: HEMATOCRIT 38.8 % (35.4-49); HEMOGLOBIN 12.9 GM/dL (11.7-16.9); MCH 27.1 pg (25.7-33.7); MCHC 33.4 g/dl (32.0-35.9); MEAN CELL VOLUME 81.2 fl (80-96); MEAN PLT VOLUME 9.2 fl (7.5-11.1); PLATELET COUNT 233 10^3/uL (134-434); RBC 4.77 M/mm3 (4.00-5.60); RDW 14.9 % (11.9-15.9)
[2024-04-05 08:49] LABS: LACTIC ACID 2.7 mmol/L (0.4-2.0); POTASSIUM 3.7 mmol/L (3.5-5.1)
[2024-04-05 08:55] LABS: ALBUMIN 3.3 g/dl (3.4-5.0); CALCIUM 8.6 mg/dL (8.5-10.1)
[2024-04-05 08:56] LABS: BLOOD UREA NITROGEN 22.5 mg/dL (7-18); MAGNESIUM 1.6 mg/dL (1.8-2.4)
[2024-04-05 08:58] LABS: PHOSPHOROUS 1.4 mg/dL (2.5-4.9)
[2024-04-05 08:59] LABS: BILIRUBIN,TOTAL 0.3 mg/dL (0.2-1); TOT PROT 6.3 g/dl (6.4-8.2)
[2024-04-05] MEDS: ENOXAPARIN NA (PORCINE) 40 MG/0.4 ML DISP.SYRIN SQ SCH (10:33)
[2024-04-05] MEDS: TAMSULOSIN HCL 0.4 MG CAP PO SCH (10:34)
[2024-04-05] MEDS: NIFEdipine E.R 60 MG TABLET PO SCH (10:34)
[2024-04-05] MEDS: BISACODYL 5 MG TABLET.DR (FP) PO SCH (10:34)
[2024-04-05] MEDS: FINASTERIDE 5 MG TABLET (FP) PO SCH (10:34)
[2024-04-05] MEDS: PIPERACILLIN/TAZOB 4.5 GM 4.5 GM in DEXTROSE 5%-WATER 100 ML IVPB SCH ×2 (10:35→14:56)
[2024-04-05] MEDS ORDERED: INSULIN (NOVOLOG) ASPART 100 UNITS/ML 10ML VIAL ONE (11:49)
[2024-04-05] MEDS: WATER IVPB SCH (14:56)
[2024-04-05] MEDS: DEXTROSE 5% IVPB SCH (14:56)
[2024-04-05] MEDS: VANCOMYCIN IVPB SCH (14:56)
[2024-04-05] MEDS: CEFTRIAXONE 1 GM in DEXTROSE 5%-WATER - 50 ML IVPB SCH (14:58)
[2024-04-05] MEDS: GABAPENTIN 100 MG CAPSULE PO SCH (22:11)
[2024-04-05] MEDS: ATORVASTATIN CA 40 MG TABLET (FP) PO SCH (22:12)
[2024-04-05] MEDS: INSULIN (LEVEMIR) 100 UNITS/ML UNITS SQ SCH (22:12)
[2024-04-05] MEDS: RIVAROXABAN 2.5 MG TABLET PO SCH (22:14)
[2024-04-05] MEDS: BUDESONIDE/FORMETEROL FUMARATE 160/4.5 mcg INHALER IH SCH (22:16)
[2024-04-06 08:22] LABS: BASO % 1.4 % (0-2.0); EOS % 5.3 % (0-4.5); HEMATOCRIT 38.6 % (35.4-49); HEMOGLOBIN 12.9 GM/dL (11.7-16.9); LYMPH % 10.5 % (8-40); MCH 26.8 pg (25.7-33.7); MCHC 33.4 g/dl (32.0-35.9); MEAN CELL VOLUME 80.3 fl (80-96); MONO % 6.8 % (3.8-10.2); PLATELET COUNT 235 10^3/uL (134-434); RBC 4.81 M/mm3 (4.00-5.60); RDW 14.9 % (11.9-15.9); WHITE BLOOD COUNT 7.4 K/mm3 (4.0-10.0)
[2024-04-06 08:38] LABS: POTASSIUM 3.8 mmol/L (3.5-5.1)
[2024-04-06 08:50] LABS: ALBUMIN 3.1 g/dl (3.4-5.0); CALCIUM 8.8 mg/dL (8.5-10.1)
[2024-04-06 08:54] LABS: BILIRUBIN,TOTAL 1.1 mg/dL (0.2-1); CREATININE 0.8 mg/dL (0.55-1.3); TOT PROT 6.4 g/dl (6.4-8.2)
[2024-04-06] MEDS: ASPIRIN 81 MG CHEWABLE TABLETS PO SCH (09:17)
[2024-04-06] MEDS: LOSARTAN POTASSIUM 50 MG TABLET PO SCH (09:17)
[2024-04-06] MEDS ORDERED: INSULIN (NOVOLOG) ASPART 100 UNITS/ML 10ML VIAL ONE (11:37)
[2024-04-07] MEDS: MELATONIN 5 MG TABLETS PO ONE (00:42)
[2024-04-07] MEDS ORDERED: INSULIN (NOVOLOG) ASPART 100 UNITS/ML 10ML VIAL ONE ×2 (11:57→21:20)
[2024-04-08] MEDS: MELATONIN 5 MG TABLETS PO PRN (00:05)
[2024-04-08] MEDS ORDERED: INSULIN (NOVOLOG) ASPART 100 UNITS/ML 10ML VIAL ONE (12:08)
[2024-04-08] MEDS: CEFUROXIME AXETIL 500 MG TABLET PO SCH (21:34)
[2024-04-09 09:41] VITALS: BP 147/62; PULSE 61; RESP 18; TEMP 97.9
[2024-04-09] MEDS ORDERED: INSULIN (NOVOLOG) ASPART 100 UNITS/ML 10ML VIAL ONE (12:37)
== END 2024-04-09 14:03 | disposition home or self-care (01) | DRG 190 ==
LOC: JER 21:25 → JERBED 04-05 01:45 → J8W 04-05 03:17 → OBSVTOIN 04-05 05:54
PROVIDERS: ADMIT Student in an Organized Health Care Education/Training Program; ATTEND Internal Medicine
DX: J44.0 Chronic obstructive pulmonary disease with (acute) lower respiratory infection (principal); J18.9 Pneumonia, unspecified organism; I69.351 Hemiplegia and hemiparesis following cerebral infarction affecting right dominant side; N17.9 Acute kidney failure, unspecified; I50.32 Chronic diastolic (congestive) heart failure; J98.11 Atelectasis; I11.0 Hypertensive heart disease with heart failure; E78.5 Hyperlipidemia, unspecified; E11.9 Type 2 diabetes mellitus without complications; N40.0 Benign prostatic hyperplasia without lower urinary tract symptoms; F03.90 Unspecified dementia, unspecified severity, without behavioral disturbance, psychotic disturbance, mood disturbance, and anxiety; M54.30 Sciatica, unspecified side; M54.50 Low back pain, unspecified; R26.81 Unsteadiness on feet; I48.0 Paroxysmal atrial fibrillation; G47.00 Insomnia, unspecified; R86.0 Abnormal level of enzymes in specimens from male genital organs
CPT/HCPCS: 0241U-QW; 36415; 70450-TC; 71045-TC-FY; 80053; 81003; 82436; 82570; 82962; 83605; 83735; 83880; 84100; 84300; 84484; 85025; 85027; 87040; 87086; 87899; 93005; 93010; 94010; 97116-GP; 97161-GP; 99285-25; G0378